=== PATIENT | female | born 1985 | race Caucasian/White ===

== ENCOUNTER 2021-10-07 14:28 | Emergency (ER) | payer BC, SELFPAY ==
[2021-10-07 14:38] VITALS: BP 147/99; PULSE 94; RESP 18; TEMP 36.6; O2SAT 97; BMI 32.5
--- NOTE | 2021-10-07 15:20 | CRLHL7_ITS ---
For Patients: As a result of the Century Cures Act, medical imaging exams and procedure reports are released immediately into your electronic medical record. You may view this report before your referring provider. If you have questions, please contact your health care provider. INDICATION: Cough TECHNIQUE: Single view chest. FINDINGS: The lungs are clear. The heart, mediastinum and pulmonary vessels are of normal size. There is no evidence of pleural disease. IMPRESSION: Negative chest. Dictated by Debra Durand MD @ 10/07/2021 3:41:55 PM (Electronically Signed)
--- NOTE | 2021-10-07 15:22 | ED_ITS ---
HPI - General Adult General Time Seen by Provider: 15:21 Date Seen: 10/07/21 Chief complaint: Cough Stated complaint: HEADACHES BODY ACHES NAUSIA W C19 EXPOSURE Time Seen by Provider: 10/07/21 14:57 History of Present Illness HPI narrative: 36-year-old female presents with 1 day history of bitemporal headache, generalized achiness, shortness of breath, cough, fatigue, malaise, nausea, vomiting. Patient reports that she was here for evaluation of vomiting about a week and a half ago. At that time she received antiemetic and fluids. She was feeling better. Her doctor told her that the vomiting was due to a side effect of her medications, possibly naltrexone so she stopped taking it. She was doing well over the subsequent several days until yesterday when she had illness involving the symptoms noted above. She was exposed to COVID at work on and Thursday of last week. She had coworkers who tested positive on Thursday for COVID. She has not previously had COVID but she is vaccinated for COVID. No other exposures. Related Data Home Medications Medication Instructions Recorded Confirmed bupropion HCl 300 mg 24 hr tablet, mg PO 10/07/21 extended release buspirone 10 mg tablet mg 10/07/21 cyclobenzaprine 10 mg tablet mg 10/07/21 liraglutide (weight loss) 3 mg/0.5 mg SUBCUT 10/07/21 mL (18 mg/3 mL) subcut pen injector (Saxenda) omeprazole 10 mg capsule,delayed 10 mg PO DAILY 10/07/21 10/07/21 release Allergies Allergy/AdvReac Type Severity Reaction Status Date / Time Penicillins AdvReac Severe Anaphylaxis Verified 10/07/21 14:41 metoclopramide [From Reglan] AdvReac Intermediate Verified 10/07/21 14:41 acetaminophen [From Vicodin] AdvReac Verified 10/07/21 14:41 hydrocodone [From Vicodin] AdvReac Verified 10/07/21 14:41 Review of Systems Narrative: patient reports no other significant symptoms of illness except as noted above. She also reports that she was feeling well from shortly after her emergency department visit 10 days ago to yesterday. [facility] Medical History Anxiety Chronic pain Depression Methamphetamine use disorder, moderate, in sustained remission PTSD (post-traumatic stress disorder) Surgical History History of Social History Smoking Status: Never smoker Do you use any of these nicotine containing products: None Second hand tobacco smoke exposure: No How often do you have a drink containing alcohol: never How often do you have six or more drinks on one occasion: Never AUDIT-C Alcohol total score: 0 Non-prescribed substance use: denies use service: No Exam Narrative: Exam Narrative: she is alert and appears in no distress. She gives her own history. Is examined. Palpation shows mild tenderness over lateral scalp bilaterally. No evidence of trauma. Pinnas external canals TMs bilaterally normal. Eyes are normal. Oropharynx is normal. No erythema or exudate. Neck is supple without mass or adenopathy. Respirations are clear to auscultation without wheezing, rales, rhonchi. Cardiovascular: S1, S2, regular rate and rhythm. No murmur gallop or rub. Abdomen: Bowel sounds active. Abdomen is soft with diffuse mild tenderness. No focal mass. Skin is without rash. Extremities with intact pulses and good capillary refill. No edema. Const: Vital Signs, click to edit/add: Vital Signs - 24 hr 10/07/21 14:38 10/07/21 16:48 Temperature 98 F Pulse Rate [Pulse Oximeter] 94 85 Respiratory Rate 18 16 Blood Pressure [Ri ght Upper Arm] 147/99 H Pulse Oximetry 97 97 Documenting provider has reviewed patient's vital signs: yes Course Vital Signs Vital signs: Initial Vital Signs Temperature 98 F 10/07/21 14:38 Temperature Source Temporal Artery Scan 10/07/21 14:38 Pulse Rate 94 10/07/21 14:38 Respiratory Rate 18 10/07/21 14:38 Blood Pressure 147/99 H 10/07/21 14:38 Blood Pressure Mean 115 10/07/21 14:38 Blood Pressure Position Sitting 10/07/21 14:38 Pulse Oximetry 97 10/07/21 14:38 Oxygen Delivery Method 10/07/21 14:38 Vital Signs Temperature 98 F 10/07/21 14:38 Pulse Rate 94 10/07/21 14:38 Respiratory Rate 18 10/07/21 14:38 Blood Pressure 147/99 H 10/07/21 14:38 Pulse Oximetry 97 10/07/21 14:38 Temperature 98 F 10/07/21 14:38 Pulse Rate 85 10/07/21 16:48 Respiratory Rate 16 10/07/21 16:48 Blood Pressure 147/99 H 10/07/21 14:38 Pulse Oximetry 97 10/07/21 16:48 Medical Decision Making Lab Data Labs: Lab Results 10/07/21 10/07/21 10/07/21 Range/Units 14:48 15:35 15:35 WBC 3.14 L (4.50-11.00) K/uL RBC 4.68 (4.00-5.20) m/uL Hgb 13.1 (12.0-16.0) gm/dL Hct 40.1 (33.0-51.0) % MCV 86 (80-100) fL MCH 28 (26-34) pg MCHC 33 (32-36) gm/dL RDW Coeff of [place] 12.8 (11.5-15.5) % Plt Count 258 (140-440) K/uL Neut % (Auto) 68.5 (42.0-72.0) % Lymph % (Auto) 12.4 L (20-44) % [place] % (Auto) 18.2 H (0.0-11.0) % Eos % (Auto) 0.3 (0.0-7.0) % Baso % (Auto) 0.3 (0.0-3.0) % Neut # (Auto) 2.20 (1.7-7.0) K/uL Lymph # (Auto) 0.40 L (0.90-2.90) K/uL [place] # (Auto) 0.60 (0.00-0.90) K/UL Eos # (Auto) 0.00 (0.00-0.50) K/uL Baso # (Auto) 0.00 (0.00-0.30) K/uL Abs Immat Gran (auto) 0.01 (0.00-0.30) K/uL Total Bilirubin 0.3 (0.1-1.5) mg/dL Direct Bilirubin 0.3 (0.0-0.5) mg/dL AST 28 (12-35) U/L ALT 27 (4-35) U/L Alkaline Phosphatase 166 H (40-150) U/L Troponin I (0.01-0.04) ng/mL C-Reactive Protein 1.5 H (0.5-1.0) mg/dL Total Protein 7.3 (6.0-8.3) g/dL Albumin 4.4 (3.3-5.0) g/dL Lipase 109 (23-300) U/L SARS-CoV-2 (PCR) POSITIVE (Negative) Influenza Type A (PCR) NEGATIVE (Negative) Influenza Type B (PCR) NEGATIVE (Negative) 10/07/21 Range/Units 15:35 WBC (4.50-11.00) K/uL RBC (4.00-5.20) m/uL Hgb (12.0-16.0) gm/dL Hct (33.0-51.0) % MCV (80-100) fL MCH (26-34) pg MCHC (32-36) gm/dL RDW Coeff of [place] (11.5-15.5) % Plt Count (140-440) K/uL Neut % (Auto) (42.0-72.0) % Lymph % (Auto) (20-44) % [place] % (Auto) (0.0-11.0) % Eos % (Auto) (0.0-7.0) % Baso % (Auto) (0.0-3.0) % Neut # (Auto) (1.7-7.0) K/uL Lymph # (Auto) (0.90-2.90) K/uL [place] # (Auto) (0.00-0.90) K/UL Eos # (Auto) (0.00-0.50) K/uL Baso # (Auto) (0.00-0.30) K/uL Abs Immat Gran (auto) (0.00-0.30) K/uL Total Bilirubin (0.1-1.5) mg/dL Direct Bilirubin (0.0-0.5) mg/dL AST (12-35) U/L ALT (4-35) U/L Alkaline Phosphatase (40-150) U/L Troponin I < 0.01 L (0.01-0.04) ng/mL C-Reactive Protein (0.5-1.0) mg/dL Total Protein (6.0-8.3) g/dL Albumin (3.3-5.0) g/dL Lipase (23-300) U/L SARS-CoV-2 (PCR) (Negative) Influenza Type A (PCR) (Negative) Influenza Type B (PCR) (Negative) Discharge Plan Discharge Clinical Impression: COVID-19 Patient Disposition: Home, Self-Care Activity Level: Activity as Tolerated and Other Activity Detail: quarantine yourself to protect others from getting COVID from you. Follow guidelines from [facility] and [facility]. Discharge Diet: Regular Prescriptions: No Action buspirone 10 mg tablet 0RF Label Comments: TAKE 2 TABLETS BY MOUTH TWICE DAILY bupropion HCl 300 mg tablet extended release 24 hr PO 0RF Label Comments: TAKE 1 TABLET BY MOUTH EVERY DAY Saxenda 3 mg/0.5 mL (18 mg/3 mL) pen injector SUBCUT 0RF Label Comments: ADMINISTER 3 MG UNDER THE SKIN DAILY omeprazole 10 mg capsule,delayed release(DR/EC) 10 mg PO DAILY 0RF cyclobenzaprine 10 mg tablet 0RF Follow Up/Referrals: Provider,Not a Local [Primary Care Provider] - Stand Alone Forms: [employer] Info Instructions
[2021-10-07 15:30] LABS: PCR FLU A NEGATIVE (Negative); PCR FLU B NEGATIVE (Negative); SARS PCR* POSITIVE (Negative)
[2021-10-07] MEDS: 0.9 % SODIUM CHLORIDE 1000 ml 1,000 ML IV (15:37)
[2021-10-07] MEDS: KETOROLAC 15 MG/ML inj IVP (15:38)
[2021-10-07] MEDS: ONDANSETRON 2 MG/ML inj 4 MG IVP (15:38)
[2021-10-07 15:48] LABS: Basophils Percent Auto 0.3 % (0.0-3.0); Eosinophils Percent Auto 0.3 % (0.0-7.0); Hematocrit 40.1 % (33.0-51.0); Hemoglobin* 13.1 gm/dL (12.0-16.0); Immature Granulocytes Abs Auto 0.01 K/uL (0.00-0.30); Lymphocytes Percent Auto 12.4 % (20-44); Mean Corpuscular HGB Conc 33 gm/dL (32-36); Mean Corpuscular Hemoglobin 28 pg (26-34); Mean Corpuscular Volume 86 fL (80-100); Monocytes Percent Auto 18.2 % (0.0-11.0); Neutrophils Percent Auto 68.5 % (42.0-72.0); Platelet Count* 258 K/uL (140-440); RDW Coefficient of Variation % 12.8 % (11.5-15.5); Red Blood Count 4.68 m/uL (4.00-5.20); White Blood Count* 3.14 K/uL (4.50-11.00)
[2021-10-07 15:58] LABS: Slide Review Reflex No
[2021-10-07 16:06] LABS: Albumin* 4.4 g/dL (3.3-5.0)
[2021-10-07 16:08] LABS: Bilirubin Direct* 0.3 mg/dL (0.0-0.5); Bilirubin Total* 0.3 mg/dL (0.1-1.5)
[2021-10-07 16:09] LABS: Alanine Aminotransferase* 27 U/L (4-35); Alkaline Phosphatase* 166 U/L (40-150); Aspartate Amino Transferase* 28 U/L (12-35); Lipase* 109 U/L (23-300); Total Protein* 7.3 g/dL (6.0-8.3)
[2021-10-07 16:12] LABS: C Reactive Protein* 1.5 mg/dL (0.5-1.0)
[2021-10-07 16:21] LABS: Troponin I* < 0.01 ng/mL (0.01-0.04)
[2021-10-07 16:48] VITALS: PULSE 85; RESP 16; O2SAT 97
[2021-10-07] MEDS: LORazepam 2 MG/ML inj 1 MG IVP (17:10)
[2021-10-07 18:00] VITALS: PULSE 81; RESP 16; O2SAT 97
== END 2021-10-07 18:27 | disposition home or self-care (01) ==
PROVIDERS: Emergency Provider Family Medicine
DX: U07.1 COVID-19 (principal)
CPT/HCPCS: 36415; 71045; 80076; 81003; 83690; 84484; 85025; 86140; 87502; 87635; 96374; 96375; 99283; 99284; J1885; J2060; J2405; J7030

== ENCOUNTER 2023-04-30 09:48 | Outpatient (CLI) | payer BC, SELFPAY ==
--- OUTSIDE RECORDS SUMMARY | 2023-05-01 16:19 | XMS_ITS | Clinical Summary ---
Author Name Unknown Organization [facility] Address [address] [place] [id number] Care Team Providers Care Non Destructive Testing Specialist Name Role Phone No Ref-Primary, Physician Unavailable [phone] More Conde MD Primary Care Provider [phone] Allergies Active Allergy Reactions Criticality Noted Date [...] Smoking Tobacco: Every Day Smokeless Tobacco: Never Adolescent Education Answer Date Record ed Getting School Help Needed Not on file 05/01 Sex and Gender Information Value Date Recorded [...] 10/30/2016 9:11 PM CDT Plan of Treatment Health Maintenance Due Date Last Done Comments ADVANCE CARE PLANNING 1985 ANNUAL REVIEW OF HM ORDERS 1986 HEPATITIS B IMMUNIZATION (1 of 3 - 3-dose series) 1986 YEARLY PREVENTIVE VISIT 1986 COVID-19 Vaccine (#1) 1986 HIV SCREENING 2001 HEPATITIS C SCREENING 2004 PAP 2007 DTAP/TDAP/TD IMMUNIZATION (4 - Tdap) 08/13/2010 08/13/2000, 10/11/1998, 10/09/1998, Additional history exists Pneumococcal Vaccine: Pediatrics (0 to 5 Years) and At-Risk Patients (6 to 64 Years) (2 of 2 - PCV) 10/18/2013 10/18/2012, 08/13/2000 INFLUENZA VACCINE (#1) 2022 2, 01/08/2011, 02/21/2010, Additional history exists PHQ-2 (once per calendar year) 2023 IPV IMMUNIZATION Completed 10/09/1998, 11/1997, 12/13/1997 HPV IMMUNIZATION Aged Out No longer e ligible based on patient's age to complete this topic MENINGITIS IMMUNIZATION Aged Out No l onger eligible based on patient's age to complete this topic RSV MONOCLONAL ANTIBODY Aged Out No l onger eligible based on patient's age to complete this topic Care Teams Non Destructive Testing Specialist Relationship Specialty Start Date End Date More Conde MD PCP - General Family Practice 09/19/18 No Ref-Primary, Physician 08/26/18
--- OUTSIDE RECORDS SUMMARY | 2023-05-01 16:19 | XMS_ITS | Referral Summary ---
Author Name Unknown Organization [facility] Address [address] [place] [address] Care Team Providers Care Claim Auditor Name Role Phone No Ref-Primary, Physician Unavailable [phone] More Conde MD Primary Care Provider [phone] Allergies Active Allergy Reactions Criticality Noted Date [...] of Treatment Not on file Care Teams Claim Auditor Relationship Specialty Start Date End Date More Conde MD PCP - General Family Practice 09/19/18 No Ref-Primary, Physician 08/26/18
--- OUTSIDE RECORDS SUMMARY | 2023-05-01 16:19 | XMS_ITS | Encounter Summary ---
Author Name Unknown Organization [facility] Address [address] [place] [address] Care Team Providers Care Radiation Control Specialist Name Role Phone No Ref-Primary, Physician Unavailable [phone] No Ref-Primary, Physician Primary Care Provider More Conde MD Primary Care Provider Reason for Visit * Reason Onset Date Comments [facility] 08/26/2018 Encounter Details Date Type Department Care Team ([facility] st Contact Info) Description 08/26/2018 Telephone [facility] Intake [address] [place] [address] Generic, Behavioral Intake, [facility] [...] 09/07/2018 3:36 PM CDT Received call from cosmetic consultant Rhonda, and she reports pt will be attending tx elsewhere and will not bepursing admission to +. * Telephone Encounter - Мария Bush LADC - 09/06/2018 8:07 AM CDT I called Liudmila at [phone] (unable to leave message) and the other phone at [phone] (voicemail, but unclear if it is patient). I did not leave messages. I called cosmetic consultant Rhonda Eli at [phone]. * Telephone Encounter - Мария Bush LADC - 09/02/2018 4:24 PM CDT I received and reviewed Comprehensive Assessment from [facility], where she is currently in residential treatment. I called patient at [phone], but could not leave a message. I called cosmetic consultant Rhonda Shawly at [phone] and left voicemail asking if patient is [...] PTSD diagnosis. It appears she has a [facility] medication management appointment set up. She has CPS involvement. She denied suicidal ideation. * Telephone Encounter - Joey Cervantes - 09/02/2018 8:11 AM CDT Client called directly Is seeking L+ Will fax over clinical * Telephone Encounter - Ruddy Lucia - 08/26/2018 9:42 AM CDT 08/26/18 Received CD Assessment w/o DUANE from Rhonda Benitez ([facility] [phone]), left aVM for Rhonda that the DUANE is needed prior to assessment being reviewed. Filed for DUANE. JT documented in this encounter Plan of Treatment Not on file documented as of this encounter Visit Diagnoses Not on filedocumented in this encounter Care Teams Radiation Control Specialist Relationship Specialty Start Date End Date No Ref-Primary, Physician PCP - General 09/16/18 09/18/18 More Conde MD PCP - General Family Practice 09/19/18 No Ref-Primary, Physician 08/26/18 documented as of this encounter
--- OUTSIDE RECORDS SUMMARY | 2023-05-01 16:19 | XMS_ITS | Clinical Summary ---
Author Name Unknown Organization [facility] Address [address] [place] [address] Care Team Providers Care Higher Education Administrator Name Role Phone Elsewhere, Pcp Primary Care Provider Unavailabl e Source Comments Patient records contain information from all sites at [facility]. For routine questions regarding patient records, call [phone] during business hours, M-F 8:00 AM - 5:00 PM Central Time. Record requests for emergency care only can be directed to [phone] at any time.[facility] [...] Department Care Team Description 03/12/2023 2:15 PM FRANCHISE MANAGER Virtual Visit Department of Obstetrics and Gynecology in [address] [address] Librado Blanton M.D. Bleeding Dysfunctional Uterine (Primary Dx) Discharge Disposition: Home or Self Care 02/19/2023 1:30 PM FRANCHISE MANAGER Ancillary Procedure Department of Obstetrics and Gynecology in [address] [address] Librado Blanton M.D. Bleeding Dysfunctional Uterine 02/19/2023 1:15 PM FRANCHISE MANAGER Comprehensive Visit Department of Obstetrics and Gynecology in [address] [address] Librado Blanton M.D. Bleeding Dysfunctional Uterine (Primary Dx) Discharge Disposition: Home or Self Care 02/19/2023 Clinical Communication Department of Obstetrics and Gynecology in [address] [address] Librado Blanton M.D. from Last 3 Months [...] any clubs o r organizations such as protestant groups, unions, fraternal or athletic groups, or [...] Answer Date Recorded PHQ-2 Score 4 04/11/2019 [facility] - Occupational Stress [...] place to sleep or slept in a custodial (including now)? No 04/04/2022 Depression Answer Date [...] Comments Blood Pressure 118/84 02/19/2023 1:00 PM FRANCHISE MANAGER Pulse 72 03/07/2019 7:42 AM FRANCHISE MANAGER Temperature 36.4 ??C (97.5 ??F) 02/02/2019 2:12 PM CD T Respiratory Rate 18 01/19/2019 7:49 PM CDT Oxygen Saturation 99% 01/19/2019 11:00 PM CDT Inhaled Oxygen Concentration - - Weight 89.1 kg (196 lb 6.9 oz) 02/19/2023 1:00 P M FRANCHISE MANAGER Height 176 cm (5' 9.29) 02/19/2023 1:00 PM FRANCHISE MANAGER Body Mass Index 28.76 02/19/2023 1:00 PM FRANCHISE MANAGER Plan of Treatment Health Maintenance Due Date [...] SURGICAL PATHOLOGY Routine 02/19/2023 1: 55 PM FRANCHISE MANAGER Bleeding Dysfunctional Uterine US PELVIS TRANSVAGINAL RAD - Routine (most inpatients and all outpatients) 02/19/2023 1:41 PM FRANCHISE MANAGER Bleeding Dysfunctional Uterine FL BX ENDOMETRIAL WO CERVIX DIL Routine 02/19/2023 1:15 PM FRANCHISE MANAGER Bleeding Dysfunctional Uterine from Last 3 Months Results * Surgical Pathology (02/19/2023 1:55 PM FRANCHISE MANAGER) 02/23/2023 9:52 AM FRANCHISE MANAGER MKTO Report electronically signed by Aysha Mckeon MD 02/23/2023 9:52 AM FRANCHISE MANAGER MKTO Specimen Received A. Endometrial biopsy 02/23/2023 9:52 AM FRANCHISE MANAGER MKTO Clinical History Dysfunctional uterine bleeding 02/23/2023 9:52 AM FRANCHISE MANAGER MKTO Gross Description Submitted as endometrium and consists of hemorrhagic domingo tissues filtering to a loose 0.6 cm. ESB, one block. mpg/nm 02/23/2023 9:52 AM FRANCHISE MANAGER MKTO Interpretation FINAL DIAGNOSIS Endometrium, biopsy: Inactive endometrium with decidualized stroma (exogenous progestational effect) with glandular and stromal breakdown. 02/23/2023 9:52 AM FRANCHISE MANAGER MKTO Tissue 02/19/2023 1:55 PM FRANCHISE MANAGER 02/20/2023 8:43 AM FRANCHISE MANAGER Librado Blanton M.D. LAB SURG PATH [facility] [address] [place] [address], [facility] MKTO [address] [facility] [address] [place] [address] * US Pelvis Transvaginal (02/19/2023 1:41 PM FRANCHISE MANAGER) Anatomical Region Laterality Modality Pelvis, Ultrasound RST LOS, Ultrasound ARZ LOS, Ultrasound FLA LOS N/A Ultrasound 02/19/2023 1:48 PM FRANCHISE MANAGER Impressions 02/19/2023 1:49 PM FRANCHISE MANAGER Normal pelvic ultrasound Narrative 02/19/2023 1:49 PM FRANCHISE MANAGER EXAM: US PELVIS TRANSVAGINAL COMPARISON: TECHNIQUE: Transvaginal. [...] Librado Blanton M.D. IMG US PROCEDURES * FL BX ENDOMETRIAL WO CERVIX DIL (02/19/2023 1:15 PM FRANCHISE MANAGER) Narrative MMODAL - 02/19/2023 1:15 PM FRANCHISE MANAGER Librado Blanton M.D. ? 02/19/2023 ??1:52 PM [...] NA from Last 3 Months Care Teams Higher Education Administrator Relationship Specialty Start Date End Date Elsewhere, Pcp PCP - General Application Infrastructure Engineer 03/18/19
--- OUTSIDE RECORDS SUMMARY | 2023-05-01 16:20 | XMS_ITS | Referral Summary ---
Author Name Unknown Organization [facility] Address [address] [place] [address] Care Team Providers Care Master [place] Name Role Phone Elsewhere, Pcp Primary Care Provider Unavailabl e Source Comments Patient records contain information from all sites at [facility]. For routine questions regarding patient records, call [phone] during business hours, M-F 8:00 AM - 5:00 PM Central Time. Record requests for emergency care only can be directed to [phone] at any time.[facility] Encounters Date Type Department Care Team Description 03/12/2023 2:15 PM DIVERSITY INTERN Virtual Visit Department of Obstetrics and Gynecology in [address] [address] Librado Blanton M.D. Bleeding Dysfunctional Uterine (Primary Dx) Discharge Disposition: Home or Self Care 02/19/2023 Clinical Communication Department of Obstetrics and Gynecology in [address] [phone] Librado Blanton M.D. 02/19/2023 1:30 PM DIVERSITY INTERN Ancillary Procedure Department of Obstetrics and Gynecology in [address] [address] Librado Blanton M.D. Bleeding Dysfunctional Uterine 02/19/2023 1:15 PM DIVERSITY INTERN Comprehensive Visit Department of Obstetrics and Gynecology in [address] [phone] Librado Blanton M.D. Bleeding Dysfunctional Uterine (Primary [...] week 04/04/2022 How often do you attend [facility] or sabianist services? More than 4 times per year [...] Answer Date Recorded PHQ-2 Score 4 04/11/2019 [employer] - Occupational Stress Questionnaire Answer Date Recorded [...] Comments Blood Pressure 118/84 02/19/2023 1:00 PM DIVERSITY INTERN Pulse 72 03/07/2019 7:42 AM DIVERSITY INTERN Temperature 36.4 ??C (97.5 ??F) 02/02/2019 2:12 PM CD T Respiratory Rate 18 01/19/2019 7:49 PM CDT Oxygen Saturation 99% 01/19/2019 11:00 PM CDT Inhaled Oxygen Concentration - - Weight 89.1 kg (196 lb 6.9 oz) 02/19/2023 1:00 P M DIVERSITY INTERN Height 176 cm (5' 9.29) 02/19/2023 1:00 PM DIVERSITY INTERN Body Mass Index 28.76 02/19/2023 1:00 PM DIVERSITY INTERN Plan of Treatment Not on file Procedures Procedure Name Priority Date/Time Associated Diagnosis Comments SURGICAL PATHOLOGY Routine 02/19/2023 1: 55 PM DIVERSITY INTERN Bleeding Dysfunctional Uterine US PELVIS TRANSVAGINAL RAD - Routine (most inpatients and all outpatients) 02/19/2023 1:41 PM DIVERSITY INTERN Bleeding Dysfunctional Uterine NM BX ENDOMETRIAL WO CERVIX DIL Routine 02/19/2023 1:15 PM DIVERSITY INTERN Bleeding Dysfunctional Uterine from Last 3 Months Results * Surgical Pathology (02/19/2023 1:55 PM DIVERSITY INTERN) 02/23/2023 9:52 AM DIVERSITY INTERN MKTO Report electronically signed by Aysha Mckeon MD 02/23/2023 9:52 AM DIVERSITY INTERN MKTO Specimen Received A. Endometrial biopsy 02/23/2023 9:52 AM DIVERSITY INTERN MKTO Clinical History Dysfunctional uterine bleeding 02/23/2023 9:52 AM DIVERSITY INTERN MKTO Gross Description Submitted as endometrium and consists of hemorrhagic domingo tissues filtering to a loose 0.6 cm. ESB, one block. mpg/nm 02/23/2023 9:52 AM DIVERSITY INTERN MKTO Interpretation FINAL DIAGNOSIS Endometrium, biopsy: Inactive endometrium with decidualized stroma (exogenous progestational effect) with glandular and stromal breakdown. 02/23/2023 9:52 AM DIVERSITY INTERN MKTO Tissue 02/19/2023 1:55 PM DIVERSITY INTERN 02/20/2023 8:43 AM DIVERSITY INTERN Librado Blanton M.D. LAB SURG PATH [facility] [address] [place] [address], [facility] MKTO [address] [place] [address] * US Pelvis Transvaginal (02/19/2023 1:41 PM DIVERSITY INTERN) Anatomical Region Laterality Modality Pelvis, Ultrasound RST LOS, Ultrasound ARZ LOS, Ultrasound FLA LOS N/A Ultrasound 02/19/2023 1:48 PM DIVERSITY INTERN Impressions 02/19/2023 1:49 PM DIVERSITY INTERN Normal pelvic ultrasound Narrative 02/19/2023 1:49 PM DIVERSITY INTERN EXAM: US PELVIS TRANSVAGINAL COMPARISON: TECHNIQUE: Transvaginal. [...] Librado Blanton M.D. IMG US PROCEDURES * NM BX ENDOMETRIAL WO CERVIX DIL (02/19/2023 1:15 PM DIVERSITY INTERN) Narrative MMODAL - 02/19/2023 1:15 PM DIVERSITY INTERN Librado Blanton M.D. ? 02/19/2023 ??1:52 PM [...] Last 3 Months Administered Medications Care Teams Master [place] Relationship Specialty Start Date End Date Elsewhere, Pcp PCP - General Administration Specialist 03/18/19
--- OUTSIDE RECORDS SUMMARY | 2023-05-01 16:20 | XMS_ITS | Encounter Summary ---
Author Name Unknown Organization [facility] Address [address], [place] [address] Care Team Providers Care Transportation Maintenance Operator Name Role Phone More Conde Primary Care Provider [phone] Encounter Details Date Type Department Care Team [...] on filedocumented in this encounter Care Teams Transportation Maintenance Operator Relationship Specialty Start Date End Date More Conde MBBS [address] [place] [address] PCP - General Family Practice 07/19/19 documented as of this encounter
--- OUTSIDE RECORDS SUMMARY | 2023-05-01 16:20 | XMS_ITS | Encounter Summary ---
Author Name Unknown Organization [facility] Address [address], [place] [address] Care Team Providers Care Tongue Presser Name Role Phone More Conde Primary Care Provider [phone] Encounter Details Date Type Department Care Team [...] on filedocumented in this encounter Care Teams Tongue Presser Relationship Specialty Start Date End Date More Conde MBBS [address] [place] [address] PCP - General Family Practice 07/19/19 documented as of this encounter
--- OUTSIDE RECORDS SUMMARY | 2023-05-01 16:20 | XMS_ITS | Encounter Summary ---
Author Name Unknown Organization [facility] Address [address] [place] [address] Care Team Providers Care Monotypist Name Role Phone Elsewhere, Pcp Primary Care Provider Unavailabl e Reason for Visit * Appointment Request (Routine) - Closed Specialty Diagnoses / Procedures Referred By Dionte t Referred To Contact Obstetrics and Gynecology Referral ID Status Reason Start Date Expiration Date Visits Re quested Visits Authorized [id number] Closed 03/06/2023 03/05/2024 1 1 Encounter Details Date Type Department Care Team (Latest Contact Info) Description 03/12/2023 2:15 PM ECONOMIC RESEARCH ANALYST Virtual Visit Department of Obstetrics and Gynecology in [address] [phone] Librado Blanton M.D. [address] [place] [phone] Bleeding Dysfunctional Uterine (Primary Dx) Discharge Disposition: [...] often do you attend chur ch or holiness services? More than 4 times per year [...] Answer Date Recorded PHQ-2 Score 4 04/11/2019 [facility] Occupat ional Health - Occupational [...] progestational effect) with glandular and stromal breakdown. OMIC RESEARCH ANALYST documented in this encounter Plan of Treatment Not on file documented as of this encounter Visit Diagnoses Diagnosis Bleeding Dysfunctional Uterine- Primary documented in this encounter Additional Health Concerns Assessment Noted Time PHQ-9 Depression Total Score: 11 020 4:00 PM ECONOMIC RESEARCH ANALYST documented as of this encounter Care Teams Monotypist Relationship Specialty Start Date End Date Elsewhere, Pcp PCP - General Outside Machinist Supervisor 03/18/19 documented as of this encounter
--- OUTSIDE RECORDS SUMMARY | 2023-05-01 16:20 | XMS_ITS | Clinical Summary ---
Author Name Unknown Organization [facility] Address [place], [place] [address] Care Team Providers Care Key Holder Name Role Phone Espinoza Montaenz MD Primary Care Provider Flaca Miles Unavailable [...] 30 Tablet 0 3 Active rizatriptan (MAXALT LOCKSTITCH COAT JOINER) 10 mg disintegrating tabletIndications:S tatus migrainosus Place [...] DAILY 15 mL 2 3 Active Insulin [place], Disposable, (BD Polly 2nd Gen Pen Needle) [...] migh t be different from the original. Office Sweeper Orders placed for 2021 Problem Noted Date [...] screening 04/13/19 08 Overview: 2003 LSIL 07/2003 [place]: CONCHIS I, ECC Benign 2005 LSIL 07/2005 [place]: No Bx 11/2005 [place]: CONCHIS 1, ECC Benign 04/2007 LSIL/HPV+ 05/2007 [place]: No Bx 12/2007 NIL 12/2008 NIL 02/2010 [...] Encounters Date Type Department Care Team Description 04/30/2023 Orders Only [facility] Scanner 1 scan: (1-Ord) [facility], ABDOMEN LIMITED, 04/30/2023 04/30/2023 Orders Only [facility] Scanner 1 scan: (1-Ord) [facility] ABDOMEN PELVIS, 04/30/2023 04/14/2023 4:00 PM MACHINE FORMER Telemedicine [facility] [address] [address] [place] [address] Olivia Mccarty MBBS Telehealth (Virtual visit-no vitals taken. /); Weight (MWL-wegovy ) 04/14/2023 Travel 04/07/2023 Orders Only [facility] Scanner 1 scan: (1-Ord) INCOMING RECORDS-, [facility], 04/07/2023 04/03/2023 11:00 AM MACHINE FORMER Telemedicine [facility] [address] [place] [address] Telehealth 04/03/2023 Travel 03/30/2023 [facility]ill [facility] [address] [place] [address] Olivia Mccarty MBBS Refill Request (Wegovy) 03/20/2023 Patient Outreach [place] [address] [place] [address] Rhonda Garcia, BALANCE BRIDGE INSPECTOR Follow up (Nausea/vomiting/intr actable headache/ED Risk 71%/03/20/2023); Primary RN Care Management (03/20/2023) 03/19/2023 10:36 PM MACHINE FORMER - 03/20/2023 1:09 AM MACHINE FORMER Emergency [facility] [address] [facility] [place] [address] Sunil Fox MD Nausea and vomiting in adult (Primary Dx); Acute nonintractable headache, unspecified headache type Discharge Disposition: Home Self Care 03/19/2023 Travel 03/18/2023 Refill [facility] [address] [facility] [address] [place] [address] Olivia Mccarty MBBS Refill Request (Bd Polly 2nd Gen Pen Needle) 02/27/2023 Telephone [facility] [address] [facility] [address] [place] [address] Olivia Mccarty MBBS Prior Authorization (semaglutide, weight loss, (Wegovy) 1.7 mg/0.75 mL pen Approved 02/04/23-02/27/24) 02/24/2023 3:30 PM MACHINE FORMER Telemedicine [facility] [address] [facility] [address] [place] [address] Olivia Mccarty MBBS Telehealth (Virtual visit-no vitals taken. /); Weight (MWL-saxenda ) 02/09/2023 Medical Messaging [address] [place] [address] Espinoza Montanez MD Referral request from Last [...] Sex Assigned at Female 04/12/2020 5:37 PM MACHINE FORMER Gender Identity Female 04/12/2020 5:37 PM MACHINE FORMER Sexual Orientation Bisexual 04/12/2020 5: 37 PM MACHINE FORMER Obstetrics History Para Term AB IAB SAB Ectopic Multiple Livin g Live Births 2 2 2 0 0 0 0 0 0 2 2 Date Outcome GA Total Labor Labor/2nd/3rd Weight Sex Delivery Anes PTL Alondra A1 A5 Name Cl in 10/10 Term 40w 0d 23h 00m/ 3.06 kg (6 lb 12 oz) M Vag Epidu [facility]al [facility] Comments: wit h no GDM or labor; uncomplicated delivery of healthy boy 10/28 Term 4.45 kg (9 lb 13 oz) F Vag Epidu ral N Geovanna ng 8 9 Kourt annabelle Schoe l Delivery Location:[facility] Comments:macrosomic in keiry Last Filed Vital Signs Vital Sign Reading Time Taken Comments Blood Pressure 131/92 03/19/2023 10:35 PM MACHINE FORMER Pulse 76 03/19/2023 10:35 PM MACHINE FORMER Temperature 36.7 ??C (98.1 ??F) 03/19/2023 10:[address] Respiratory Rate 20 03/19/2023 10:35 PM MACHINE FORMER Oxygen Saturation 97% 03/19/2023 10:35 PM MACHINE FORMER Inhaled Oxygen Concentration - - Weight 89.4 kg (197 lb) 04/14/2023 3:00 PM MACHINE FORMER Height 174 cm (5' 8.5) 04/14/2023 3:00 PM MACHINE FORMER Body Mass Index 29.51 04/14/2023 3:00 PM MACHINE FORMER Plan of Treatment Upcoming Encounters Date Type Department Care Team (Late st Contact Info) Description 06/09/2023 11:00 AM MACHINE FORMER Telemedicine [facility] [address] [facility] [address] [place] [phone] Carol Painting, RD [address] [facility] [address] [place] [address] 06/23/2023 3:00 PM CDT Office Visit [facility] [place] [facility] [address] [place] [address] Ruddy Garcia MD [address] [place] [address] 07/06/2023 3:30 PM CDT Telemedicine [facility] [address] [facility] [address] [place] [phone] Olivia Mccarty MBBS [address] [facility] [address] [place] [address] Health Maintenance Due Date Last Done Comments [...] Additional history exists Tetanus booster 01/21/2031 01/21/2021, 06/0 12/2010, 10/09/1998 Tdap Completed 09/12/2010 Pneumococcal series for age 6-64 Aged Out 10/18/2012, 08/13/2000 No longer eligibl e based on patient's age to complete this topic HIV for age 15-65 Completed 08/22/2020, , 03/24/2007 Hepatitis C screening for age 18-79 Completed 08/22/2020 Procedures Procedure Name Priority Date/Time Associated Diagnosis Comments SCAN-ULTRASOUND REPORT 12:00 AM MACHINE FORMER SCAN-CT INTERPRETATION 12:00 AM MACHINE FORMER SCAN CORRESP-IMAGING 04/07/2023 12:00 AM MACHINE FORMER LIPASE STAT 03/19/2023 11:15 PM MACHINE FORMER HEPATIC FUNCTION PANEL STAT 11:15 PM MACHINE FORMER BASIC METABOLIC PANEL STAT 03/19/2023 11:15 PM MACHINE FORMER CBC W PLT NO DIFF STAT 03/19/2023 11: 15 PM MACHINE FORMER from Last 3 Months Results * SCAN-ULTRASOUND REPORT (04/30/2023 12:00 AM MACHINE FORMER) Anatomical Region Laterality Modality Other Scanner OTHER * SCAN-CT INTERPRETATION (04/30/2023 12:00 AM MACHINE FORMER) Anatomical Region Laterality Modality Other Scanner OTHER * SCAN CORRESP-IMAGING (04/07/2023 12:00 AM MACHINE FORMER) Anatomical Region Laterality Modality Other Scanner OTHER * CBC W PLT NO DIFF (03/19/2023 11:15 PM MACHINE FORMER) WHITE BLOOD COUNT 6.6 4.5 - 11.0 thou/cu mm 03/19/2023 11:32 PM MACHINE FORMER [facility] RED BLOOD COUNT 4.80 4.00 - 5.20 mil/cu mm 03/19/2023 11:32 PM MACHINE FORMER [facility] HEMOGLOBIN 13.9 12.0 - 16.0 g/dL 03/19/2023 11:32 PM MACHINE FORMER [facility] HEMATOCRIT 42.6 33.0 - 51.0 % 03/19/2023 11:32 PM MACHINE FORMER [facility] MCV 89 80 - 100 fL 03/19/2023 11:32 PM MACHINE FORMER [facility] MCH 29.0 26.0 - 34.0 pg 03/19/2023 11:32 PM MACHINE FORMER [facility] MCHC 32.6 32.0 - 36.0 g/dL 03/19/2023 11:32 PM MACHINE FORMER [facility] RDW 14.2 11.5 - 15.5 % 03/19/2023 11:32 PM MACHINE FORMER [facility] PLATELET COUNT 358 140 - 440 thou/cu mm 03/19/2023 11:32 PM MACHINE FORMER [facility] MPV 10.7 6.5 - 11.0 fL 03/19/2023 11:32 PM MACHINE FORMER [facility] Blood BLOOD SPECIMEN / Unknown Venipuncture / Unknown 03/19/2023 11:15 PM MACHINE FORMER 03/19/2023 11:19 PM MACHINE FORMER Sunil Fox MD HEMATOLOGY [facility] [address] [place] [address] * LIPASE (03/19/2023 11:15 PM MACHINE FORMER) LIPASE 32.3 13.0 - 60.0 IU/L 03/19/2023 11:39 PM MACHINE FORMER [facility] Blood BLOOD SPECIMEN / Unknown Venipuncture / Unknown 03/19/2023 11:15 PM MACHINE FORMER 03/19/2023 11:19 PM MACHINE FORMER Sunil Fox MD CHEMISTRY Performing Organization Address City/[facility]/ZIP Co de Phone Number [facility] [address] [place] [address] * (ABNORMAL) HEPATIC FUNCTION PANEL (03/19/2023 11:15 PM MACHINE FORMER) ALBUMIN 4.8 4.0 - 4.9 g/dL 03/19/2023 11:39 PM MACHINE FORMER [facility] PROTEIN,TOTAL 7.4 6.0 - 8.0 g/dL 03/19/2023 11:39 PM MACHINE FORMER [facility] BILIRUBIN,TOTAL 0.6 0.0 - 1.2 mg/dL 03/19/2023 11:39 PM MACHINE FORMER [facility] BILIRUBIN,DIRECT <0.2 0.0 - 0.3 mg/dL 03/19/2023 11:39 PM MACHINE FORMER [facility] BILIRUBIN,INDIRE CT 03/19/2023 11:39 PM MACHINE FORMER [facility] Comment:Unable to calculate, Direct Bili <0.2 ALK PHOSPHATASE 191(H) 35 - 104 IU/L 03/19/2023 11:39 PM MACHINE FORMER [facility] ALT (SGPT) 87(H) 10 - 35 IU/L 03/19/2023 11:39 PM MACHINE FORMER [facility] AST (SGOT) 29 10 - 35 IU/L 03/19/2023 11:39 PM MACHINE FORMER [facility] Blood BLOOD SPECIMEN / Unknown Venipuncture / Unknown 03/19/2023 11:15 PM MACHINE FORMER 03/19/2023 11:19 PM MACHINE FORMER Sunil Fox MD CHEMISTRY [facility] [address] [place] [address] * (ABNORMAL) BASIC METABOLIC PANEL (03/19/2023 11:15 PM MACHINE FORMER) SODIUM 141 136 - 145 mmol/L 03/19/2023 11:39 PM MACHINE FORMER [facility] POTASSIUM 3.6 3.5 - 5.1 mmol/L 03/19/2023 11:39 PM MACHINE FORMER [facility] CHLORIDE 105 98 - 107 mmol/L 03/19/2023 11:39 PM MACHINE FORMER [facility] CO2,TOTAL 21(L) 22 - 29 mmol/L 03/19/2023 11:39 PM MACHINE FORMER [facility] ANION GAP 15 5 - 18 03/19/2023 11:39 PM MACHINE FORMER [facility] GLUCOSE 80 70 - 99 mg/dL 03/19/2023 11:39 PM MACHINE FORMER [facility] CALCIUM 10.0 8.6 - 10.0 mg/dL 03/19/2023 11:39 PM [facility] BUN 14 6 - 20 mg/dL 03/19/2023 11:39 PM MACHINE FORMER [facility] CREATININE 0.86 0.50 - 0.90 mg/dL 03/19/2023 11:39 PM MACHINE FORMER [facility] BUN/CREAT RATIO 16 10 - 20 11:39 PM [facility] eGFR 90(L) >90 mL/min/1.7 3m2 03/19/2023 11:39 PM [facility] Comment:As of 2021, eG FR is calculated by the CKD-EPI creatinine equation without race adjustment. ??eGFR can be influenced by muscle mass, exercise, and diet. ??The reported eGFR is an estimation only and is only applicable if the renal function is stable. Blood BLOOD SPECIMEN / Unknown Venipuncture / Unknown 03/19/2023 11:15 PM MACHINE FORMER 03/19/2023 11:19 PM MACHINE FORMER Sunil Fox MD CHEMISTRY [facility] [address] [place] [address] from Last 3 Months Advance Directives Latest [...] 4:48 AM 10/31/2007 3:48 PM Care Teams Key Holder Relationship Specialty Start Date End Date Espinoza Montanez MD [address] [facility] [place] [address] PCP - General Family Practice 01/17/20 Flaca Miles PA [address] [facility] [place] [address] Consulting Physician Physician Lab Associate 01/17/20 Tegan Freedman Psychiatry Psychiatry 01/17/20
--- OUTSIDE RECORDS SUMMARY | 2023-05-01 16:20 | XMS_ITS | Encounter Summary ---
Author Name Unknown Organization [facility] Address [address] [place] [address] Care Team Providers Care Focused Factory Manager Name Role Phone Elsewhere, Pcp Primary Care Provider Unavailabl e Reason for Visit * Outpatient (Routine) - Closed Specialty Diagnoses / Procedures Referred By Dionte garcia Referred To Contact Diagnoses Bleeding Dysfunctional Uterine Procedures US Pelvis Transvaginal Librado Blanton M.D. [address] [place] [phone] [facility] Referral ID Status Reason Start Date Expiration Date Visits Re quested Visits Authorized [id number] Closed 02/19/2023 02/19/2024 1 1 Encounter Details Date Type Department Care Team (Latest Contact Info) Description 02/19/2023 1:30 PM MEDICAL ILLUSTRATOR Ancillary Procedure Department of Obstetrics and Gynecology in [place], [place] [address] [place] [phone] Librado Blanton M.D. [address] [place] [phone] Bleeding Dysfunctional Uterine Social History Tobacco [...] How often do you attend chur or zoroastrian services? More than 4 times per year 04/04/2022 Do you belong to any clubs o r organizations such as episcopal groups, unions, fraternal or athletic groups, or [...] Answer Date Recorded PHQ-2 Score 4 04/11/2019 [facility] of Occupat ional Health - Occupational Stress [...] inpatients and all outpatients) 02/19/2023 1:41 PM MEDICAL ILLUSTRATOR Bleeding Dysfunctional Uterine documented in this encounter Results * US Pelvis Transvaginal (02/19/2023 1:41 PM MEDICAL ILLUSTRATOR) Anatomical Region Laterality Modality Pelvis, Ultrasound RST LOS, Ultrasound ARZ LOS, Ultrasound FLA LOS N/A Ultrasound 02/19/2023 1:48 PM MEDICAL ILLUSTRATOR Impressions 02/19/2023 1:49 PM MEDICAL ILLUSTRATOR Normal pelvic ultrasound Narrative 02/19/2023 1:49 PM MEDICAL ILLUSTRATOR EXAM: US PELVIS TRANSVAGINAL COMPARISON: TECHNIQUE: Transvaginal. [...] Total Score: 11 04/11/ 020 4:00 PM MEDICAL ILLUSTRATOR documented as of this encounter Care Teams Focused Factory Manager Relationship Specialty Start Date End Date Elsewhere, Pcp PCP - General Proposal Review Analyst 03/18/19 documented as of this encounter
--- OUTSIDE RECORDS SUMMARY | 2023-05-01 16:20 | XMS_ITS | Encounter Summary ---
Author Name Unknown Organization [facility] Address [address] [place] [address] Care Team Providers Care Horticultural Specialty Grower Field Name Role Phone Elsewhere, Pcp Primary Care Provider Unavailabl e Reason for Referral * Outpatient (Routine) - Authorized Specialty Diagnoses / Procedures Referred By Contac t Referred To Contact Diagnoses Bleeding Dysfunctional Uterine Procedures Endometrial Sampling Librado Blanton M.D. [address] [place] [address] [facility] Referral ID Status Reason Start Date Expiration Date V isits Requested Visits Authorized [id number] Authorized 02/19/2023 02/19/2024 1 1 AND BALANCE ENGINEER * Outpatient (Routine) - Closed Specialty Diagnoses / Procedures Referred By Contac t Referred To Contact Diagnoses Bleeding Dysfunctional Uterine Procedures US Pelvis Transvaginal Librado Blanton M.D. [address] [place] [address] [facility] Referral ID Status Reason Start Date Expiration Date Visits Re quested Visits Authorized [id number] Closed 02/19/2023 02/19/2024 1 1 AND BALANCE ENGINEER Reason for Visit * Reason Comments Menorrhagia * Appointment Request (Routine) - Closed Specialty Diagnoses / Procedures Referred By Contac t Referred To Contact Obstetrics and Gynecology Diagnoses Menometrorrhagia Espinoza Montanez M.D. [address] [place] [address] Referral ID Status Reason Start Date Expiration Date Visits Re quested Visits Authorized [id number] Closed 02/12/2023 02/12/2024 1 1 Encounter Details Date Type Department Care Team (Latest Contact Info) Description 02/19/2023 1:15 PM TEST AND BALANCE ENGINEER Comprehensive Visit Department of Obstetrics and Gynecology in [address] [address] Librado Blanton M.D. [address] [place] [address] Bleeding Dysfunctional Uterine (Primary Dx) [...] week 04/04/2022 How often do you attend [facility] or catholic services? More than 4 times per year 04/04/2022 Do you belong to any clubs o r organizations such as hoahaoism groups, unions, fraternal or athletic groups, or [...] Answer Date Recorded PHQ-2 Score 4 04/11/2019 [facility] of Occupat ional Health - Occupational Stress [...] place to sleep or slept in a long-term (including now)? No 04/04/2022 Depression Answer Date [...] Comments Blood Pressure 118/84 02/19/2023 1:00 PM TEST AND BALANCE ENGINEER Pulse - - Temperature - - Respiratory Rate - - Oxygen Saturation - - Inhaled Oxygen Concentration - - Weight 89.1 kg (196 lb 6.9 oz) 02/19/2023 1:00 P M TEST AND BALANCE ENGINEER Height 176 cm (5' 9.29) 02/19/2023 1:00 PM TEST AND BALANCE ENGINEER Body Mass Index 28.76 02/19/2023 1:00 PM TEST AND BALANCE ENGINEER documented in this encounter Progress Notes * [...] OB history: P4004, status post x2, x2. Hosiery Pairer history: Patient's last menstrual period was 02/15/2023.. [...] appearing external genitalia, Bartholin glands, urethra, and [place]willow's glands. Vagina: No masses or lesions. No [...] Sampling Librado Blanton M.D. 02/19/2023 1:12 PM TEST AND BALANCE ENGINEER AND BALANCE ENGINEER documented in this encounter Procedure Notes * [...] completed successfully: yes Complications: no apparent complications RESIDENT PROGRAMS ASSISTANT AND BALANCE ENGINEER documented in this encounter Plan of Treatment Not on file documented as of this encounter Procedures Procedure Name Priority Date/Time Associated Diagnosis Comments SURGICAL PATHOLOGY Routine 02/19/2023 1: 55 PM TEST AND BALANCE ENGINEER Bleeding Dysfunctional Uterine AZ BX ENDOMETRIAL WO CERVIX DIL Routine 02/19/2023 1:15 PM TEST AND BALANCE ENGINEER Bleeding Dysfunctional Uterine documented in this encounter Results * Surgical Pathology (02/19/2023 1:55 PM TEST AND BALANCE ENGINEER) 02/23/2023 9:52 AM TEST AND BALANCE ENGINEER MKTO Report electronically signed by Aysha Mckeon MD 02/23/2023 9:52 AM TEST AND BALANCE ENGINEER MKTO Specimen Received A. Endometrial biopsy 02/23/2023 9:52 AM TEST AND BALANCE ENGINEER MKTO Clinical History Dysfunctional uterine bleeding 02/23/2023 9:52 AM TEST AND BALANCE ENGINEER MKTO Gross Description Submitted as endometrium and consists of hemorrhagic domingo tissues filtering to a loose 0.6 cm. ESB, one block. mpg/nm 02/23/2023 9:52 AM TEST AND BALANCE ENGINEER MKTO Interpretation FINAL DIAGNOSIS Endometrium, biopsy: Inactive endometrium with decidualized stroma (exogenous progestational effect) with glandular and stromal breakdown. 02/23/2023 9:52 AM TEST AND BALANCE ENGINEER MKTO Tissue 02/19/2023 1:55 PM TEST AND BALANCE ENGINEER 02/20/2023 8:43 AM TEST AND BALANCE ENGINEER Librado Blanton M.D. LAB SURG PATH [facility] [address] [place] [address], [facility] MKTO [facility] [place] [address] * US Pelvis Transvaginal (02/19/2023 1:41 PM TEST AND BALANCE ENGINEER) Anatomical Region Laterality Modality Pelvis, Ultrasound RST LOS, Ultrasound ARZ LOS, Ultrasound FLA LOS N/A Ultrasound 02/19/2023 1:48 PM TEST AND BALANCE ENGINEER Impressions 02/19/2023 1:49 PM TEST AND BALANCE ENGINEER Normal pelvic ultrasound Narrative 02/19/2023 1:49 PM TEST AND BALANCE ENGINEER EXAM: US PELVIS TRANSVAGINAL COMPARISON: TECHNIQUE: Transvaginal. [...] ENDOMETRIAL WO CERVIX DIL (02/19/2023 1:15 PM TEST AND BALANCE ENGINEER) Narrative MMODAL - 02/19/2023 1:15 PM TEST AND BALANCE ENGINEER Librado Blanton M.D. ? 02/19/2023 ??1:52 PM [...] Depression Total Score: 11 020 4:00 PM TEST AND BALANCE ENGINEER documented as of this encounter Care Teams Horticultural Specialty Grower Field Relationship Specialty Start Date End Date Elsewhere, Pcp PCP - General Director Of Casino 03/18/19 documented as of this encounter
--- OUTSIDE RECORDS SUMMARY | 2023-05-01 16:20 | XMS_ITS ---
Author Name Unknown Organization [facility] Address [address] [place] [address] Care Team Providers Care Director Of Services Name Role Phone Unavailable Unavailable Unavailable Surgery Details Not on file Complications Check Surgery Details section. Procedure Estimated Blood Loss Check Surgery Details section. Procedure Findings Check Surgery Details section. Procedure Specimens Taken Check Surgery Details section.
--- OUTSIDE RECORDS SUMMARY | 2023-05-01 16:20 | XMS_ITS | Encounter Summary ---
Author Name Unknown Organization [facility] Address [address] [place] [address] Care Team Providers Care Heat Sealing Machine Operator Name Role Phone Elsewhere, Pcp Primary Care Provider Unavailabl e Encounter Details Date Type Department Care Team (Late st Contact Info) Description 02/19/2023 Clinical Communication Department of Obstetrics and Gynecology in [place], [place] [address] [place] [phone] Librado Blanton M.D. [address] [place] [phone] Social History Tobacco Use Types Packs/Day Years [...] often do you attend chur ch or methodist services? More than 4 times per year 04/04/2022 Do you belong to any clubs o r organizations such as islam groups, unions, fraternal or athletic groups, or [...] Answer Date Recorded PHQ-2 Score 4 04/11/2019 [facility] [place] of Occupat ional Health - Occupational Stress [...] Elayne Lynne L.PSivaN. - 02/19/2023 2:02 PM DIRECTOR OF LOGISTICS [facility] Surgery Clinic Checklist Patient Contact Number: [phone] Surgeon: Franny Surgical Service: (_) Orthopedics (_) General surgery (_) Ophthalmology (_) Podiatry (_) ENT (_) Urology (X) OB / Gynecology (_) Other Date of Surgery: 04/03/23 [facility] of Surgery[facility] Procedure (as written on Consent): total laparoscopic hysterectomy, bilateral salpingectomy Right, Left, Bilateral, N/A: Diagnosis (reason for surgery): AUB, prior sterilization ICD-10: n93.8 CPT: 82630 CTOR OF LOGISTICS documented in this encounter Plan of Treatment Not on file documented as of this encounter Visit Diagnoses Not on filedocumented in this encounter Additional Health Concerns Assessment Noted Time PHQ-9 Depression Total Score: 11 020 4:00 PM DIRECTOR OF LOGISTICS documented as of this encounter Care Teams Heat Sealing Machine Operator Relationship Specialty Start Date End Date Elsewhere, Pcp PCP - General Offc Spec 03/18/19 documented as of this encounter
--- OUTSIDE RECORDS SUMMARY | 2023-05-01 16:20 | XMS_ITS | Clinical Summary ---
Author Name Unknown Organization [facility] Address [address] [place] [address] Care Team Providers Care Dot Etcher Apprentice Name Role Phone More Conde Primary Care Provider [phone] Source Comments You are receiving this document as you are listed as the primary care provider,follow-up provider, or the patient has been referred to you for consultation.This is in compliance with the Medicare and[facility] Cent[facility]aid EHR Incentive Program,which states Providers who transition their patient to another setting of careor provider of care or refers their patient to another provider of care shouldprovide summary care record for each transition of care or referral. [facility] Allergies Active Allergy Reactions Criticality Noted Date [...] (Polio) 10/09/1998,01/11/1998,12/13/1997 Influenza IIV4 (Quadrivalent ) 0.5mL (43815) 02/21/2010 MMR 10/09/1998 PPSV23 (Pneumovax) 10/18/2012 Pneumococcal [...] CDT Oxygen Saturation 98% 04/19/2017 7:46 PM HOSE TESTER Inhaled Oxygen Concentration - - Weight 94.6 [...] 6:06 AM 10/23/2016 3:44 PM Care Teams Dot Etcher Apprentice Relationship Specialty Start Date End Date More Conde MBBS [address] [place] [id number] PCP - General Family Practice 07/19/19
== END 2023-04-30 09:49 | disposition home or self-care (01) ==
LOC: AMB 05-01 16:17
PROVIDERS: PCP Family Medicine; Visit Provider Family Medicine
DX: R10.9 Unspecified abdominal pain (principal); R11.10 Vomiting, unspecified
CPT/HCPCS: A0425; A0427

== ENCOUNTER 2023-04-30 10:22 | Emergency (ER) | payer BC, SELFPAY ==
[2023-04-30 10:31] VITALS: BP 108/75; PULSE 92; RESP 20; TEMP 36.9; O2SAT 98; BMI 30.9
[2023-04-30 10:47] LABS: Appearance Urine Clear (Clear); Bilirubin Urine 1+ (Negative); Blood Urine Negative (Negative); Color Urine Yellow (Yellow); Glucose Urine Negative (Negative); Ketones Urine Trace (Negative); Leukocyte Esterase Urine Negative (Negative); Nitrite Urine Negative (Negative); Protein Urine Negative (Negative); Specific Gravity Urine >= 1.030 (1.000-1.030); Urobilinogen Urine 0.2 (0.2-1.0)
[2023-04-30 10:50] LABS: Ur HCG Qualitative* Negative (Negative)
--- NOTE | 2023-04-30 11:04 | ED.ABDPAIN ---
HPI - Abdominal Pain General Time Seen by Provider: 11:04 Date Seen: 04/30/23 Chief Complaint: Abdominal Pain Stated Complaint: Abdominal pain Time Seen by Provider: 04/30/23 11:03 Source: patient, RN notes reviewed and old records reviewed Mode of arrival: EMS Limitations: no limitations History of Present Illness HPI narrative: Liudmila is a 38-year-old female with history of chronic pain, past history of methamphetamine use, C-sections who comes to the emergency room for evaluation of abdominal pain vomiting and diarrhea. Patient is describing her pain epigastrium and right upper quadrant with wrap around to the back. She states that she has never had pain like this before. She is preferring to lay still but even then she still has discomfort. No blood in her vomiting or stool. Patient had the onset of symptoms early this morning. She describes pain 01/13 and was given morphine by EMS. She notes that when the fire department 1st came to her home and [place] after calling 911 they said she had a blood pressure of 50 and was low on her oxygen. EMS did not note hypoxia and blood pressure upon arrival was 108 systolic. Patient denies possibility of as she does have her tubes tied. Patient notes that she had been taking weight loss medication Liraglutide but has not taken that in over a month because it made her sick. Related Data Home Medications Medication Instructions Recorded Confirmed bupropion HCl 300 mg 24 hr tablet, mg PO 10/07/21 extended release buspirone 10 mg tablet mg 10/07/21 cyclobenzaprine 10 mg tablet mg 10/07/21 liraglutide (weight loss) 3 mg/0.5 mg subcut 10/07/21 mL (18 mg/3 mL) subcut pen injector (Saxenda) omeprazole 10 mg capsule,delayed 10 mg PO DAILY 10/07/21 10/07/21 release amitriptyline 10 mg tablet 10 mg PO QPM 04/30/23 04/30/23 clonidine HCl 0.1 mg tablet mg PO 04/30/23 lamotrigine 25 mg tablet 50 mg PO DAILY 04/30/23 04/30/23 rizatriptan 10 mg disintegrating mg PO 04/30/23 tablet topiramate 25 mg tablet 25 mg PO BID 04/30/23 04/30/23 Previous Rx's Medication Instructions Recorded ondansetron 4 mg disintegrating 4 mg PO Q8-12H PRN nausea and 04/30/23 tablet vomiting #10 tabs Allergies Allergy/AdvReac Type Severity Reaction Status Date / Time Penicillins AdvReac Severe Anaphylaxis Verified 04/30/23 13:08 metoclopramide [From Reglan] AdvReac Intermediate Verified 04/30/23 13:08 acetaminophen [From Vicodin] AdvReac Verified 04/30/23 13:08 hydrocodone [From Vicodin] AdvReac Verified 04/30/23 13:08 Review of Systems Status of ROS Reports: 10 or more systems reviewed and unremarkable except as noted in History and below Const Reports: fatigue; Denies: fever or chills ENMT Denies: throat pain Cardio Denies: chest pain, swelling of feet/ankles or shortness of breath with exertion Resp Denies: shortness of breath GI Reports: abdominal pain, nausea, vomiting and diarrhea; Denies: blood in stool Denies: painful urination or urinary frequency Musculo Reports: back pain Endo Reports: fatigue PFSH PFSH Medical History PTSD (post-traumatic stress disorder) ?F43.10 - Post-traumatic stress disorder, unspecified (ICD-10) Depression ?F32.A - Depression, unspecified (ICD-10) Anxiety ?F41.9 - Anxiety disorder, unspecified (ICD-10) Methamphetamine use disorder, moderate, in sustained remission ?F15.21 - Other stimulant dependence, in remission (ICD-10) Chronic pain ?G89.29 - Other chronic pain (ICD-10) Surgical History History of ?Z98.891 - History of uterine scar from previous surgery (ICD-10) Social History Smoking Status: Current every day smoker Do you use any of these nicotine containing products: Vaping Products Second hand tobacco smoke exposure: No How often do you have a drink containing alcohol: never How often do you have six or more drinks on one occasion: Never AUDIT-C Alcohol total score: 0 Non-prescribed substance use: former substance user and marijuana (any form) service: No Exam Narrative: Exam Narrative: Liudmila is lying on her side when I enter the room. She is able to move onto her back with minimal difficulty. She seems very anxious at this time. External ears eyes nose clear. Lips are dry but tongue is with wet mucous membranes. Heart with a regular rate and rhythm and lungs are clear bilaterally. Abdomen shows tenderness throughout but mainly in the right upper quadrant. Noted abdominal distension noted. No pulsating mass noted. No CVA tenderness with percussion. Lower extremities are without edema or calf tenderness. Const: Vital Signs, click to edit/add: Vital Signs - 24 hr 04/30/23 10:31 04/30/23 12:09 Temperature 98.4 F Pulse Rate 75 Pulse Rate [Pulse Oximeter] 92 Respiratory Rate 20 Blood Pressure 101/57 L Blood Pressure [Ri ght Upper Arm] 108/75 Pulse Oximetry 98 96 Oxygen Delivery Me thod Room Air Documenting provider has reviewed patient's vital signs: yes Course Course ED Course: Differential diagnosis includes but is not limited to gastroenteritis, colitis whether viral bacterial or autoimmune, diverticulitis, internal hernia. Will give 1 L of normal saline, 15 mg of IV Toradol, labs to include CBC, comprehensive panel, lactate, lipase, urinalysis. Will start with right upper quadrant ultrasound given the right upper quadrant pain. Reevaluation(s) Reevaluation #1: Ultrasound is negative for gallbladder abnormalities. Will proceed with CT is patient tells me she still has continued pain. Ativan 0.5 mg IV at this time. Reevaluation #2: Patient given morphine 4 mg with continue complaints of pain. Given the fact that labs are reassuring at this time with normal white count, creatinine, lactate would like to be very cautious with narcotic pain medicines given patient's past history of illicit substance use. ALT and alk-phos have come back elevated. CRP is normal. Urinalysis without evidence of UTI and hCG is negative. Vital Signs Vital signs: Initial Vital Signs Temperature 98.4 F 04/30/23 10:31 Temperature Source Temporal Artery Scan 04/30/23 10:31 Pulse Rate 92 04/30/23 10:31 Respiratory Rate 20 04/30/23 10:31 Blood Pressure 108/75 04/30/23 10:31 Blood Pressure Mean 86 04/30/23 10:31 Blood Pressure Position Supine 04/30/23 10:31 Pulse Oximetry 98 04/30/23 10:31 Oxygen Delivery Method Room Air 04/30/23 10:31 Vital Signs Temperature 98.4 F 04/30/23 10:31 Pulse Rate 92 04/30/23 10:31 Respiratory Rate 20 04/30/23 10:31 Blood Pressure 108/75 04/30/23 10:31 Pulse Oximetry 98 04/30/23 10:31 Oxygen Delivery Method Room Air 04/30/23 10:31 Temperature 98.4 F 04/30/23 10:31 Pulse Rate 75 04/30/23 12:09 Respiratory Rate 20 04/30/23 10:31 Blood Pressure 101/57 L 04/30/23 12:09 Pulse Oximetry 96 04/30/23 12:09 Oxygen Delivery Method Room Air 04/30/23 10:31 Medications Administered Medications: Discontinued Medications Generic Name Dose Route Start Last Admin Trade Name Freq PRN Reason Stop Dose Admin Sodium Chloride 1,000 mls @ 1,000 mls/hr 04/30/23 11:05 04/30/23 12:25 0.9 % Sodium Chloride 1000 Ml IV 04/30/23 12:04 Infused .Q1H MINH Infusion Ketorolac Tromethamine 15 mg 04/30/23 11:30 04/30/23 11:40 Ketorolac 15 Mg/Ml Inj IVP 04/30/23 11:31 15 mg ONCE ONE Administration Lorazepam 0.5 mg 04/30/23 11:43 04/30/23 11:53 Lorazepam 2 Mg/Ml Inj IVP 04/30/23 11:44 0.5 mg ONCE ONE Administration Morphine Sulfate 4 mg 04/30/23 13:11 04/30/23 13:36 Morphine 4 Mg/Ml Inj IVP 04/30/23 13:12 4 mg ONCE ONE Administration MDM - Abdominal Pain MDM Narrative Medical decision making narrative: 1. Abdominal pain nausea vomiting and diarrhea-patient noted to have reassuring lab values with normal white count. Minimally elevated ALT and alkaline phosphatase but negative right upper quadrant ultrasound and ultimately CT did not show any evidence of colitis, diverticulitis or gallbladder disease. We have seen a fair bit of this illness recently and this is likely stemming from a viral gastroenteritis. Patient did receive in the ED Toradol 15 mg IV, Ativan 0.5 mg IV, Toradol 4 mg IV and morphine 4 mg IV. I did explain that I would not be using narcotics to treat this illness as everything we have found has been reassuring. However, she will need to follow-up for worsening symptoms and as needed. She should probably expect nausea and possibly vomiting to continue over the next 8-12 hours. Diarrhea may continue over the next 2-3 days. I advised her not to use the medications such as Imodium. I advise keeping well hydrated. 2. Disposition-home at this time. Return for worsening symptoms. Trudi is sent to pharmacy. Today patient did receive cook narcotic pain medications while awaiting results of CT. Given findings, history of illicit drug use I would not recommend any narcotics for control of pain at this time with negative CT and reassuring labs. Medical Records Attestation: I reviewed the patient's medical records. Lab Data Attestation: I reviewed the patient's lab results. Labs: Lab Results 04/30/23 04/30/23 Range/Units 11:10 Unknown WBC 9.60 (4.50-11.00) K/uL RBC 5.14 (4.00-5.20) m/uL Hgb 14.4 (12.0-16.0) gm/dL Hct 45.4 (33.0-51.0) % MCV 88 (80-100) fL MCH 28 (26-34) pg MCHC 32 (32-36) gm/dL RDW Coeff of Mackenzie 12.8 (11.5-15.5) % Plt Count 306 (140-440) K/uL Neut % (Auto) 92.9 H (42.0-72.0) % Lymph % (Auto) 1.4 L (20-44) % [place] % (Auto) 4.5 (0.0-11.0) % Eos % (Auto) 0.9 (0.0-7.0) % Baso % (Auto) 0.1 (0.0-3.0) % Neut # (Auto) 8.90 H (1.7-7.0) K/uL Lymph # (Auto) 0.10 L (0.90-2.90) K/uL [place] # (Auto) 0.40 (0.00-0.90) K/UL Eos # (Auto) 0.09 (0.00-0.50) K/uL Baso # (Auto) 0.01 (0.00-0.30) K/uL Abs Immat Gran (auto) 0.02 (0.00-0.30) K/uL Imm/Tot Granulo (auto) 0.2 % Sodium 144 (135-149) mmol/L Potassium 3.8 (3.6-5.1) mmol/L Chloride 116 H (96-114) mmol/L Carbon Dioxide 16 L (20-32) mmol/L Anion Gap 12 (7-15) mEq/L BUN 18 (5-24) mg/dL Creatinine 0.9 (0.5-1.5) mg/dL Estimated Creat Clear 86.33 Estimated GFR 84 ml/min Glucose 111 (60-115) mg/dL Lactate 0.7 (0.5-1.9) mmol/L Calcium 9.2 (8.4-10.6) mg/dL Total Bilirubin 0.8 (0.1-1.5) mg/dL AST 29 (12-35) U/L ALT 75 H (4-35) U/L Alkaline Phosphatase 167 H (40-150) U/L C-Reactive Protein 0.6 (0.5-1.0) mg/dL Total Protein 8.0 (6.0-8.3) g/dL Albumin 4.6 (3.3-5.0) g/dL Lipase 256 (23-300) U/L Urine Color Yellow (Yellow) Urine Appearance Clear (Clear) Urine pH 5.0 (5.0-8.5) Ur Specific [place] >= 1.030 (1.000-1.030) Urine Protein Negative (Negative) Urine Glucose (UA) Negative (Negative) Urine Ketones Trace A (Negative) Urine Blood Negative (Negative) Urine Nitrite Negative (Negative) Urine Bilirubin 1+ A (Negative) Urine Urobilinogen 0.2 (0.2-1.0) Ur Leukocyte Esterase Negative (Negative) Urine RBC 0-2 (0-2) Urine WBC 0-2 (0-5) Ur Squamous Epith Cells Few (None-Few) Urine Bacteria None (None) Urine HCG, Qual Negative (Negative) Imaging Data US - abdomen: Attestation: I have reviewed the pertinent imaging results. Radiologist's impression: Liver: Normal in size and echotexture. No suspicious masses. No intrahepatic biliary dilatation. Gallbladder: No stones or sludge. Normal wall thickness. No pericholecystic fluid. Common bile duct: 4 mm. Pancreas: Unremarkable. Right kidney: Normal in size. Normal echotexture and cortex. No suspicious masses, stones, or hydronephrosis. Vasculature: Proximal abdominal aorta and IVC are unremarkable. IMPRESSION: Unremarkable right upper quadrant ultrasound. CT scan - abdomen: Attestation: I have reviewed the pertinent imaging results. Radiologist's impression: LUNG BASES: The lung bases as visualized appear normal.The heart size is normal at the lung bases. LIVER/BILIARY SYSTEM:The liver is normal in size and configuration. There is no focal mass and there is no intra- or extra hepatic biliary ductal dilatation.Distended bed otherwise unremarkable appearing gallbladder. Probable mild steatosis ADRENALS: Normal KIDNEYS, URETERS and BLADDER:The kidneys appear normal. No visible mass, calculus or hydronephrosis. The ureters and bladder as visualized appear normal. SPLEEN:Normal appearance. PANCREAS: Appears normal. RETROPERITONEUM and MESENTERY: There is no mass, adenopathy or aortic aneurysm. GASTROINTESTINAL SYSTEM: There is no evidence of diverticulitis, colitis, mechanical obstruction, or appendicitis. The small bowel as visualized appears normal. PELVIS: No mass, adenopathy or free fluid. OSSEOUS STRUCTURES and ABDOMINAL WALL: There is an age-appropriate appearance of the osseous structures.No significant abdominal wall defect. OTHER: No free fluid or free air. IMPRESSION: No visible cause for right upper quadrant pain Discharge Plan Discharge Clinical Impression: Abdominal pain, vomiting, and diarrhea Patient Disposition: Home, Self-Care Condition: Improved Instructions: Acute Nausea and Vomiting (DC), Abdominal Pain (ED) Additional Instructions: Zofran as needed for nausea. Ibuprofen or Tylenol as needed for discomfort. You did have mild elevation of 2 of your liver test. You will need to follow up to have this recheck by your doctor next week. Recommend pushing fluids as much as possible. [place]oup foods recommended. You are likely contagious. Good handwashing to prevent the spread of this illness. Return as needed. Prescriptions: New ondansetron 4 mg tablet,disintegrating 4 mg PO Q8-12H PRN (Reason: nausea and vomiting) Qty: 10 0RF No Action buspirone 10 mg tablet Patient Comments: TAKE 2 TABLETS BY MOUTH TWICE DAILY bupropion HCl 300 mg tablet extended release 24 hr PO Patient Comments: TAKE 1 TABLET BY MOUTH EVERY DAY Saxenda 3 mg/0.5 mL (18 mg/3 mL) pen injector SUBCUT Patient Comments: ADMINISTER 3 MG UNDER THE SKIN DAILY omeprazole 10 mg capsule,delayed release(DR/EC) 10 mg PO DAILY cyclobenzaprine 10 mg tablet clonidine HCl 0.1 mg tablet PO topiramate 25 mg tablet 25 mg PO BID lamotrigine 25 mg tablet 50 mg PO DAILY amitriptyline 10 mg tablet 10 mg PO QPM rizatriptan 10 mg tablet,disintegrating PO Follow Up/Referrals: Provider,Not a Local [Referring] - Stand Alone Forms: [facility] Info Instructions
[2023-04-30 11:11] LABS: RBC Urine 0-2 (0-2); Squamous Epithelial Cell Urine Few (None-Few); WBC Urine 0-2 (0-5)
[2023-04-30] MEDS: 0.9 % SODIUM CHLORIDE 1000 ml 1,000 ML IV (11:15)
--- OUTSIDE RECORDS SUMMARY | 2023-04-30 11:17 | XMS_ITS | Clinical Summary ---
Author Name Unknown Organization [employer] [facility] Address [place], [place] [address] Care Team Providers Care Solderer Name Role Phone Espinoza Montanez MD Primary Care Provider Flaca Miles Unavailable Unavaila ble Allergies Active Allergy Reactions Criticality Noted Date Comments Blood-Group Specific Substance Dizziness 12/08/2007 Patient has Probable Passive Anti-D Blood Product orders may be delayed. ??Draw one red top and two purple top tubes for ALL Type and Screen/ Type and Crossmatch orders. Patient has Probable Passive Anti-D Blood Product orders may be delayed.?Draw one red top and two purple top tubes for ALL Type and Screen/ Type and Crossmatch orders. Patient has Probable Passive Anti-D Blood Product orders may be delayed.?Draw one red top and two purple top tubes for ALL Type and Screen/ Type and Crossmatch orders. Codeine Dyspnea 07/13/2010 Converted from Generic Allergy: Apap/Codeine Hydrocodone Hives,Dyspnea 08/04/2010 Metoclopramide Anxiety,GI Upset,Dizziness,O ther - Describe In Comment Field,Dyspnea Low 09/08/2007 Reports dystonia Reports dystonia Reports dystonia Pt states becomes agitated and her body shakes. Reports dystonia Pt states becomes agitated and her body shakes. Morphine Hives High 10/21/2016 Penicillins Hives,Shortness Of Breath,Dyspnea High 09/18/2004 Other reaction(s): Breathing Difficulty Pt has tolerated cephalosporins in the past Pt has tolerated cephalosporins in the past Metoclopramide Agitation 09/08/2007 Pt states becomes agitated and her body shakes. Hydrocodone-Acetaminoph en Hives 01/01/2007 Medications Medication Sig Dispensed Refills Start Date End Date Status buPROPion (WELLBUTRIN XL) 300 mg Extended-Release tablet Take 1 Tablet (300 mg) by mouth once daily. 0 2 Active cyclobenzaprine (FLEXERIL) 10 mg tabletIndications:S pasm,Fibromyalgia Take 1 Tablet (10 mg) by mouth 3 times daily if needed for Muscle Spasm. 90 Tablet 3 2 Active cloNIDine HCL (CATAPRES) 0.1 mg tablet Take 0.1 mg by mouth in morning and 0.05 mg (half tablet) in evening 0 3 Active busPIRone (BUSPAR) 30 mg tablet Take 30 mg by mouth two times daily. 0 3 Active multivitamin (MVI) tablet Take 1 Tablet by mouth once daily. 0 Active omeprazole (PRILOSEC) 20 mg Delayed-Release capsule Take 20 mg by mouth once daily. 0 Active oxyCODONE 10 mg tabletIndications:I ntractable persistent migraine aura without cerebral infarction and with status migrainosus Take 1 Tablet (10 mg) by mouth every 6 hours if needed for Pain. 15 Tablet 0 3 Active naproxen (NAPROSYN) 500 mg tabletIndications:H A (headache) Take 1 Tablet (500 mg) by mouth every 12 hours if needed for Pain or Headache. 30 Tablet 0 3 Active rizatriptan (MAXALT API PRODUCT MANAGER) 10 mg disintegrating tabletIndications:S tatus migrainosus Place 1 Tablet (10 mg) on the tongue 2 times daily if needed for Migraine. Give at minimum 2hrs apart. Max Dose: 30mg per 24hrs. 10 Tablet 3 3 Active ondansetron (ZOFRAN) 4 mg tabletIndications:M igraine without aura and with status migrainosus, not intractable Take 1 Tablet (4 mg) by mouth every 8 hours if needed for Nausea/Vomiting (nausea) for up to 20 doses. 20 Tablet 0 3 Active acetaminophen-caffe ine-butalbital (FIORICET) 325-40-50 mgIndications:Statu s migrainosus TAKE 1 TABLET BY MOUTH EVERY 4 HOURS NEEDED FOR HEADACHE. MAX 6 DOSES PER DAY. MAX ACETAMINOPHEN DOSE 4000 MG IN 24 HOURS 30 Tablet 0 3 Active topiramate (TOPAMAX) 100 mg tabletIndications:M igraine aura, persistent, intractable TAKE 1 TABLET(100 MG) BY MOUTH EVERY DAY 30 Tablet 3 3 Active liraglutide, weight loss, (Saxenda) 3 mg/0.5 mL (18 mg/3 mL) subcutaneous penIndications:Clas s 1 obesity with body mass index (BMI) of 32.0 to 32.9 in adult, unspecified obesity type, unspecified whether serious comorbidity present ADMINISTER 3 MG UNDER THE SKIN DAILY 15 mL 2 3 Active Insulin [place], Disposable, (BD Polly 2nd Gen Pen Needle) 32 gauge x /32Indications:Cl ass 1 obesity with body mass index (BMI) of 32.0 to 32.9 in adult, unspecified obesity type, unspecified whether serious comorbidity present As directed. DAILY USE. Remove the 2 covers on the pen needle before administering Saxenda dose. 100 Each 0 3 Active buPROPion (WELLBUTRIN XL) 150 mg Extended-Release tablet Take 150 mg by mouth once daily. Take in addition to the 300 mg tablet for a total daily dose of 450 mg. 0 3 Active topiramate (TOPAMAX) 25 mg tabletIndications:M igraine aura, persistent, intractable TAKE 2 TABLETS(50 MG) BY MOUTH EVERY DAY 180 Tablet 0 3 Active amitriptyline (ELAVIL) 10 mg tabletIndications:I ntractable persistent migraine aura without cerebral infarction and with status migrainosus TAKE 1 TABLET(10 MG) BY MOUTH AT BEDTIME 60 Tablet 1 3 Active rOPINIRole (REQUIP) 1 mg tabletIndications:H A (headache),Status migrainosus TAKE 1 TABLET BY MOUTH TWICE DAILY 60 Tablet 3 3 Active prochlorperazine (COMPAZINE) 10 mg tabletIndications:N ausea and vomiting in adult,Acute nonintractable headache, unspecified headache type Take 1 Tablet (10 mg) by mouth every 6 hours if needed for Nausea/Vomiting (Headache). 15 Tablet 0 3 Active Wegovy 1.7 mg/0.75 mL penIndications:Over weight (BMI 25.0-29.9) INJECT 1.7MG SUBCUTANEOUS ONCE WEEKLY. TRANSITIONING FROM SAXENDA 3MG DUE TO SUPPLY SHORTAGE 3 mL 0 3 Active ondansetron (ZOFRAN ODT) 4 mg disintegrating tabletIndications:C lass 1 obesity with body mass index (BMI) of 32.0 to 32.9 in adult, unspecified obesity type, unspecified whether serious comorbidity present,Overweight (BMI 25.0-29.9) Place 1 Tablet (4 mg) on the tongue every 8 hours if needed for Nausea/Vomiting. 30 Tablet 3 4 Active ondansetron (ZOFRAN ODT) 4 mg disintegrating tabletIndications:C lass 1 obesity with body mass index (BMI) of 32.0 to 32.9 in adult, unspecified obesity type, unspecified whether serious comorbidity present Place 1 Tablet (4 mg) on the tongue every 8 hours if needed for Nausea/Vomiting. 30 Tablet 3 3 04/14/19 24 Discontinue d(Reorder (E-cancel not sent)) nitrofurantoin macrocrystals/monoh ydrate (MACROBID) 100 mg capsuleIndications: UTI (urinary tract infection), uncomplicated Take 1 Capsule (100 mg) by mouth two times daily for 5 days. 10 Capsule 0 4 04/14/19 24 Hospital, Clinic, or Other Facility Administered Medication Ordered Dose Route Frequency Start Date End Date Status medroxyPROGESTERone acetate (contraceptive) (DEPO-PROVERA) injection 150 mgIndications:Uses contraception 150 mg IM Q 3 MONTHS (12 WEEKS) 12/04/2020 Active medroxyPROGESTERone acetate (contraceptive) (DEPO-PROVERA) injection 150 mgIndications:Depo-Pr overa contraceptive status 150 mg IM Q 3 MONTHS (12 WEEKS) 07/11/2022 06/12/2023 Active Active Problems Patient Care Coordination No te Formatting of this note migh t be different from the original. Meeting Facilitator Orders placed for 2021 Problem Noted Date Diagnosed Date Acute migraine 08/06/2022 Chronic bilateral low back pain with bilateral s ciatica 11/03/2019 Methamphetamine use disorder , moderate, in sustained remission 01/30/2017 Overview: treatment, graduation 03/21/20 last use date 10/16/2018 Major depressive disorder, recurrent episode, nano bangura 11/11/2016 Overview: [facility] Smoker 11/10/2016 Night terror 10/30/2016 Chronic post-traumatic stress disorder 7 Chronic pain syndrome 10/26/2016 Non-intractable vomiting with nausea 10/26/2016 Overview: with menses Anxiety disorder 10/25/2016 Pap smear for cervical cancer screening 04/13/19 08 Overview: 2003 LSIL 07/2003 [place]: CONCHIS I, ECC Benign 2005 LSIL 07/2005 [place]: No Bx 11/2005 [place]: CONCHIS 1, ECC Benign 04/2007 LSIL/HPV+ 05/2007 [place]: No Bx 12/2007 NIL 12/2008 NIL 02/2010 NIL 12/2011 NIL 10/2019 NIL/HPV negative 05/2022 NIL/HPV negative Plan:Pap/HPV due 05/2027 Goiter, unspecified 09/18/2004 Insomnia, unspecified 09/18/2004 Resolved Problems Problem Noted Date Diagnosed Date Resolved Date Right middle lobe pneumonia 11/03/2019 11/03/2019 Mid back pain 01/13/2017 11/03/2019 Bilateral leg pain 01/13/2017 0 Weakness of both lower extremities 01/13/2017 11/03/2019 Moderate major depression 11/11/2016 Acute right-sided low back pain 10/29/2016 11/03/2019 Acute cystitis without hematuria 10/29/2016 11/03/2019 Vesicoureteral reflux 10/25/20162019 Acute pyelonephritis 10/25/2016 020 Urinary retention 06/18/2016 11/03/2019 Flank pain 06/18/2016 11/03/2019 Acute pyelonephritis 10/28/2015 020 Pyelonephritis 02/12/2013 11/03/2019 LFT elevation 02/12/2013 11/03/2019 Tachycardia 02/12/2013 11/03/2019 Asthma 01/03/2011 11/03/2019 Overview: Asthma Other specified screening(V28.89) 02/21/2010 02/12/2013 Normal delivery 10/29/2007 11/08/2008 Supervision of other normal 03/24/2007 02/12/2013 Mild episode of recurrent ma taryn depressive disorder 05/08/2006 11/03/2019 Overview: RECURR DEPR DISORD-MILD Supervision of normal first 02/24/2005 04/13/2007 Other convulsions 09/18/2004 11/03/2019 Overview: febrile Depressive disorder, not elsewhere classified 09/19/19 05 11/03/2019 Anxiety state, unspecified 09/18/2004 0 11/03/2019 Encounters Date Type Department Care Team Description 04/14/2023 4:00 PM PER DIEM [facility] [address] [facility] [address] [place] [address] Olivia Mccarty MBBS Telehealth (Virtual visit-no vitals taken. /); Weight (MWL-wegovy ) 04/14/2023 Travel 04/07/2023 Orders Only [facility] Scanner 1 scan: (1-Ord) INCOMING RECORDS-US, [facility], 04/07/2023 04/03/2023 11:00 AM PER DIEM [facility] [address] [facility] [address] [place] [address] Carol Painting, JOON Telehealth 04/03/2023 Travel 03/30/2023 Refill [facility] [address] [facility] [address] [place] [address] Olivia Mccarty MBBS Refill Request (Wegovy) 03/20/2023 Patient Outreach [address] [phone] Rhonda Garcia, STEEL MOLDER Follow up (Nausea/vomiting/intr actable headache/ED Risk 71%/03/20/2023); Primary RN Care Management (03/20/2023) 03/19/2023 10:36 PM PER DIEM - 03/20/2023 1:09 AM PER DIEM Emergency [facility] [address] [facility] [place] [address] Sunil Fox MD Nausea and vomiting in adult (Primary Dx); Acute nonintractable headache, unspecified headache type Discharge Disposition: Home Self Care 03/19/2023 Travel 03/18/2023 Refill [facility] Weight Management - [facility] [id number] [place] [address] [address] [place] [address] Olivia Mccarty MBBS Refill Request (Bd Polly 2nd Gen Pen Needle) 02/27/2023 Telephone [facility] Weight Management [facility] [id number] [place] [phone] Olivia Mccarty MBBS Prior Authorization (semaglutide, weight loss, (Wegovy) 1.7 mg/0.75 mL pen Approved 02/04/23-02/27/24) 02/24/2023 3:30 PM PER DIEM Telemedicine [facility] [address] [place] [phone] Olivia Mccarty MBBS Telehealth (Virtual visit-no vitals taken. /); Weight (MWL-saxenda ) 02/09/2023 Medical Messaging [address] [phone] Espinoza Montanez MD Referral request from Last 3 Months Immunizations Name Administration Dates Next Due COVID-19 vaccine (Moderna 100mcg/0.5mL) PF, MDV 08/30/2020,07/11/2020 DTaP 08/13/2000, 9,01/11/1998, 998 HIB PRP-OMP (PedvaxHIB) 10/09/1998,01/11/1998, Hepatitis B (Peds) 10/09/1998,12/13/1997, 998 Influenza Virus, Unspecified 01/15/2012,01/09/20 11 Influenza, IIV3 (Age >=3 years) 02/21/2010 Influenza, IIV4 08/08/2022(Deferred: - per pt req),01/21/2021,04/19/2019 MMR 10/09/1998 Oral Polio Vaccine 10/09/1998,01/11/1998, 998 Pneumococcal Poly,23-Valent (Pneumovax) 10/18/2012 Pneumococcal conj 7-Valent ( Prevnar 7) 08/13/2000 Td (Age >=7 Years) 01/21/2021,10/09/1998 Tdap 09/12/2010 Tuberculin (PPD) 10/02/2014 Varicella Vaccine 06/20/2009(Deferred: Contraindication - Had disease),10/09/1998 Family History Medical History Relation Name Comments Asthma Brother 1 Max Alcoholism Father Cancer Father brain, age 63 Psychiatric illness Father dep/anxi ety Cancer Maternal Aunt Thyroid Disease Maternal Aunt Cancer-breast Maternal Grandmother Hypertension Maternal Grandmother Anxiety disorder Mother Asthma Mother Cancer Mother cervical, ovari an, endometrial Depression Mother Hypertension Mother Obesity Mother Psychiatric illness Mother dep./anx iety Diabetes Paternal Grandfather Type 2 Hyperlipidemia Paternal Grandfather Hypertension Paternal Grandfather Diabetes Paternal Grandmother Type 2 Hyperlipidemia Paternal Grandmother Hypertension Paternal Grandmother Diabetes Paternal Uncle Type 2 Hypertension Paternal Uncle Anxiety disorder Sister 1 mellissa Asthma Sister 1 mellissa Depression Sister 1 mellissa Obesity Sister 1 mellissa Psychiatric illness Sister 1 mellissa dep/anxi ety Psychiatric illness Sister 2 Aysha Mental illness Sister 3 Joana Relation Name Status Comments Brother 1 Max Alive Brother 2 Alive Brother 3 Alive Brother 4 Alive Father Maternal Aunt Alive Maternal Grandfather Maternal Grandmother Alive Mother Alive Paternal Grandfather Paternal Grandmother Paternal Uncle Sister 1 mellissa Alive Sister 2 Aysha Alive Sister 3 Joana Alive Sister 4 Marly Alive Social History Tobacco Use Types Packs/Day Years Used Date Smoking Tobacco: Former Cigarettes 0.1 6 1 04/13/2003 - 02/11/2010 Smokeless Tobacco: Never Tobacco Cessation:Counseling Given: Yes Alcohol Use Standard Drinks/Week Comments Not Currently 0 (1 standard drink = 0.6 oz pur e alcohol) last time consumed 2016 PHQ-2 Answer Date Recorded PHQ-2 TOTAL SCORE 0 03/17/2022 Social Connections Answer Date Recorded Frequency of Communication with Friends and Fami ly 0 06/02/2022 Financial Resource Strain Answer Date R ecorded Difficulty of Paying Living Expenses 3 06/02/2022 Difficulty of Paying Living Expenses Not on file 06/02/2022 Food Insecurity Answer Date Recorded Worried About Running Out of Food in the Last Ye ar 1 06/02/2022 Transportation Needs Answer Date Record ed Lack of Transportation (Medical) 1 06/02/2022 Housing Stability Answer Date Recorded Unable to Pay for Housing in the Last Year 1 06/02/2022 Sex and Gender Information Value Date Recorded Sex Assigned at Female 04/12/2020 5:37 PM PER DIEM Gender Identity Female 04/12/2020 5:37 PM PER DIEM Sexual Orientation Bisexual 04/12/2020 5: 37 PM PER DIEM Obstetrics History Para Term AB IAB SAB Ectopic Multiple Livin g Live Births 2 2 2 0 0 0 0 0 0 2 2 Date Outcome GA Total Labor Labor/2nd/3rd Weight Sex Delivery Anes PTL Alondra A1 A5 Name Cl in 10/10 Term 40w 0d 23h 00m/ 3.06 kg (6 lb 12 oz) M Vag Epidu ral [facility] Location:[facility] Comments: wit h no GDM or labor; uncomplicated delivery of healthy boy 10/28 Term 4.45 kg (9 lb 13 oz) F Vag Epidu ral N Geovanna ng 8 9 Kourt annabelle Schoe l Delivery Location:[facility] Comments:macrosomic in keiry Last Filed Vital Signs Vital Sign Reading Time Taken Comments Blood Pressure 131/92 03/19/2023 10:35 PM PER DIEM Pulse 76 03/19/2023 10:35 PM PER DIEM Temperature 36.7 ??C (98.1 ??F) 03/19/2023 10:[address] Respiratory Rate 20 03/19/2023 10:35 PM PER DIEM Oxygen Saturation 97% 03/19/2023 10:35 PM PER DIEM Inhaled Oxygen Concentration - - Weight 89.4 kg (197 lb) 04/14/2023 3:00 PM PER DIEM Height 174 cm (5' 8.5) 04/14/2023 3:00 PM PER DIEM Body Mass Index 29.51 04/14/2023 3:00 PM PER DIEM Plan of Treatment Upcoming Encounters Date Type Department Care Team (Late st Contact Info) Description 06/09/2023 11:00 AM PER DIEM Telemedicine [facility] Weight Management - [facility] [address] [facility] [address] [place] [phone] Carol Painting, RD [address] [facility] [address] [place] [address] 06/23/2023 3:00 PM CDT Office Visit [facility] [place] [facility] [address] [place] [address] Ruddy Garcia MD [address] [place] [address] 07/06/2023 3:30 PM CDT Telemedicine [facility] Weight Management - [facility] [address] [facility] [address] [place] [phone] Olivia Mccarty MBBS [address] [facility] [address] [place] [address] Health Maintenance Due Date Last Done Comments COVID-19 vaccine series (2022- season) 2022 08/30/2020, 07/11/2020 Influenza for age 9-49 12/05/2022 , 04/19/2019, 01/15/2012, Additional history exists Depression screening for age 12+ 03/17/2023 03/17/2022, 01/21/2021, 02/17/2020, Additional history exists BMI (ht and wt on same day) for age 18+ 04/14/2024 04/14/2023, 04/03/2023, 02/24/2023, Additional history exists Pap test for age 21-65 06/03/2027 3, 06/03/2022, 11/03/2019, Additional history exists Tetanus booster 01/21/2031 01/21/2021, 12/2010, 10/09/1998 Tdap Completed 09/12/2010 Pneumococcal series for age 6-64 Aged Out 10/18/2012, 08/13/2000 No longer eligibl e based on patient's age to complete this topic HIV for age 15-65 Completed 08/22/2020, , 03/24/2007 Hepatitis C screening for age 18-79 Completed 08/22/2020 Procedures Procedure Name Priority Date/Time Associated Diagnosis Comments SCAN CORRESP-IMAGING 04/07/2023 12:00 AM PER DIEM LIPASE STAT 03/19/2023 11:15 PM PER DIEM HEPATIC FUNCTION PANEL STAT 03/19/2023 11:15 PM PER DIEM BASIC METABOLIC PANEL STAT 03/19/2023 11:15 PM PER DIEM CBC W PLT NO DIFF STAT 03/19/2023 11: 15 PM PER DIEM from Last 3 Months Results * SCAN CORRESP-IMAGING (04/07/2023 12:00 AM PER DIEM) Anatomical Region Laterality Modality Other Scanner OTHER * CBC W PLT NO DIFF (03/19/2023 11:15 PM PER DIEM) WHITE BLOOD COUNT 6.6 4.5 - 11.0 thou/cu mm 03/19/2023 11:32 PM PER DIEM [facility] RED BLOOD COUNT 4.80 4.00 - 5.20 mil/cu mm 03/19/2023 11:32 PM PER DIEM [facility] HEMOGLOBIN 13.9 12.0 - 16.0 g/dL 03/19/2023 11:32 PM PER DIEM [facility] HEMATOCRIT 42.6 33.0 - 51.0 % 03/19/2023 11:32 PM PER DIEM [facility] MCV 89 80 - 100 fL 03/19/2023 11:32 PM PER DIEM [facility] MCH 29.0 26.0 - 34.0 pg 03/19/2023 11:32 PM PER DIEM [facility] MCHC 32.6 32.0 - 36.0 g/dL 03/19/2023 11:32 PM PER DIEM [facility] RDW 14.2 11.5 - 15.5 % 03/19/2023 11:32 PM PER DIEM [facility] PLATELET COUNT 358 140 - 440 thou/cu mm 03/19/2023 11:32 PM PER DIEM [facility] MPV 10.7 6.5 - 11.0 fL 03/19/2023 11:32 PM PER DIEM [facility] Blood BLOOD SPECIMEN / Unknown Venipuncture / Unknown 03/19/2023 11:15 PM PER DIEM 03/19/2023 11:19 PM PER DIEM Sunil Fox MD HEMATOLOGY Performing Organization Address [facility]/ZIP Co de Phone Number [address] [address] * LIPASE (03/19/2023 11:15 PM PER DIEM) LIPASE 32.3 13.0 - 60.0 IU/L 03/19/2023 11:39 PM PER DIEM [facility] Blood BLOOD SPECIMEN / Unknown Venipuncture / Unknown 03/19/2023 11:15 PM PER DIEM 03/19/2023 11:19 PM PER DIEM Sunil Fox MD CHEMISTRY Performing Organization Address City/[facility] Co de Phone Number [address] [address] * (ABNORMAL) HEPATIC FUNCTION PANEL (03/19/2023 11:15 PM PER DIEM) ALBUMIN 4.8 4.0 - 4.9 g/dL 03/19/2023 11:39 PM PER DIEM [facility] PROTEIN,TOTAL 7.4 6.0 - 8.0 g/dL 03/19/2023 11:39 PM PER DIEM [facility] BILIRUBIN,TOTAL 0.6 0.0 - 1.2 mg/dL 03/19/2023 11:39 PM PER DIEM [facility] BILIRUBIN,DIRECT <0.2 0.0 - 0.3 mg/dL 03/19/2023 11:39 PM PER DIEM [facility] BILIRUBIN,INDIRE CT 03/19/2023 11:39 PM [facility] Comment:Unable to calculate, Direct Bili <0.2 ALK PHOSPHATASE 191(H) 35 - 104 IU/L 03/19/2023 11:39 PM [facility] ALT (SGPT) 87(H) 10 - 35 IU/L 03/19/2023 11:39 PM PER DIEM [facility] AST (SGOT) 29 10 - 35 IU/L 03/19/2023 11:39 PM [facility] Blood BLOOD SPECIMEN / Unknown Venipuncture / Unknown 03/19/2023 11:15 PM PER DIEM 03/19/2023 11:19 PM PER DIEM [place] [address] * (ABNORMAL) BASIC METABOLIC PANEL (03/19/2023 11:15 PM PER DIEM) SODIUM 141 136 - 145 mmol/L 03/19/2023 11:39 PM [facility] POTASSIUM 3.6 3.5 - 5.1 mmol/L 03/19/2023 11:39 PM [facility] CHLORIDE 105 98 - 107 mmol/L 03/19/2023 11:39 PM [facility] CO2,TOTAL 21(L) 22 - 29 mmol/L 03/19/2023 11:39 PM [facility] ANION GAP 15 5 - 18 03/19/2023 11:39 PM [facility] GLUCOSE 80 70 - 99 mg/dL 03/19/2023 11:39 PM [facility] CALCIUM 10.0 8.6 - 10.0 mg/dL 03/19/2023 11:39 PM [facility] BUN 14 6 - 20 mg/dL 03/19/2023 11:39 PM [facility] CREATININE 0.86 0.50 - 0.90 mg/dL 03/19/2023 11:39 PM [facility] BUN/CREAT RATIO 16 10 - 20 11:39 PM PER DIEM [facility] eGFR 90(L) >90 mL/min/1.7 3m2 03/19/2023 11:39 PM PER DIEM [facility] Comment:As of 2021, eG FR is calculated by the CKD-EPI creatinine equation without race adjustment. ??eGFR can be influenced by muscle mass, exercise, and diet. ??The reported eGFR is an estimation only and is only applicable if the renal function is stable. Blood BLOOD SPECIMEN / Unknown Venipuncture / Unknown 03/19/2023 11:15 PM PER DIEM 03/19/2023 11:19 PM PER DIEM Sunil Fox MD CHEMISTRY [place] [id number] [place] [address] from Last 3 Months Advance Directives Latest Code Status on File Code Status Date Activated Date Inactivated Comments Full Code 08/07/2022 12:36 AM 08/11/2022 6:40 PM Question Answer Comments Code Status Discussion: Reviewed Preferences Code Status History Code Status Date Activated Date Inactivated Comments Full Code 06/18/2016 2:03 AM 06/20/2016 7:37 PM Full Code 10/28/2015 10:32 PM 11/01/2015 6:50 PM Full Code 02/12/2013 3:32 PM 02/15/2013 4:30 PM Full Code 10/29/2007 4:48 AM 10/31/2007 3:48 PM Care Teams Solderer Relationship Specialty Start Date End Date Espinoza Montanez MD [address] [facility] [place] [address] PCP - General Family Practice 01/17/20 Flaca Miles PA [address] [facility] [place] [address] Consulting Physician Physician Circular Saw Filer 01/17/20 Tegan Freedman Psychiatry Psychiatry 01/17/20
--- OUTSIDE RECORDS SUMMARY | 2023-04-30 11:17 | XMS_ITS ---
Author Name Unknown Organization [facility] Address [address] [place] [address] Care Team Providers Care Senior [employer] Systems Programmer Name Role Phone Unavailable Unavailable Unavailable Surgery Details Not on file Complications Check Surgery Details section. Procedure Estimated Blood Loss Check Surgery Details section. Procedure Findings Check Surgery Details section. Procedure Specimens Taken Check Surgery Details section.
--- OUTSIDE RECORDS SUMMARY | 2023-04-30 11:17 | XMS_ITS | Encounter Summary ---
Author Name Unknown Organization [facility] Address [address], [place] [address] Care Team Providers Care Rn Otolaryngology Name Role Phone More Conde Primary Care Provider [phone] Encounter Details Date Type Department Care Team Description 12/09/2016 Consent for Procedure/Treatment [facility] Department RH CONSENT/ RELEASE Social History Tobacco Use Types Packs/Day Years Used Date Smoking Tobacco: Every Day Cigarettes Smokeless Tobacco: Never Alcohol Use Standard Drinks/Week Comments No 0 (1 standard drink = 0.6 oz pur e alcohol) 2 drinks per week Sex and Gender Information Value Date Recorded Sex Assigned at Not on file Gender Identity Not on file Sexual Orientation Not on file documented as of this encounter Plan of Treatment Not on file documented as of this encounter Visit Diagnoses Not on filedocumented in this encounter Care Teams Rn Otolaryngology Relationship Specialty Start Date End Date More Conde MBBS [address] [place] [id number] PCP - General Family Practice 07/19/19 documented as of this encounter
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
--- OUTSIDE RECORDS SUMMARY | 2023-04-30 11:17 | XMS_ITS | Clinical Summary ---
Author Name Unknown Organization [facility] Address [address] [place] [address] Care Team Providers Care Data Communications Engineer Name Role Phone More Conde Primary Care Provider [phone] Source Comments You are receiving this document as you are listed as the primary care provider,follow-up provider, or the patient has been referred to you for consultation.This is in compliance with the Medicare and[facility] EHR Incentive Program,which states Providers who transition their patient to another setting of careor provider of care or refers their patient to another provider of care shouldprovide summary care record for each transition of care or referral. [facility] Allergies Active Allergy Reactions Criticality Noted Date Comments Penicillins Breathing Difficulty,Hives High 12/16/2006 Pt has tolerated cephalosporins in the past Metoclopramide Other, see comments 10/21/2016 Reports dystonia Morphine And Related Hives High 10/21/2016 Medications Medication Sig Dispensed Refills Start Date End Date Status methyl salicylate-menthol (AKA ANALGESIC BALM) ointment Apply 1 Application topically three times a day as needed (lower back, sides). 410 g 1 10/27/2016 Active Additional Information Patient not taking.Reported on 01/30/2017 ondansetron (ZOFRAN-ODT) 8 MG disintegrating tablet Take 1 Tab by mouth every 8 hours as needed. 15 Tab 1 10/27/2016 Active Additional Information Patient not taking.Reported on 01/30/2017 tiZANidine (ZANAFLEX) 2 MG tablet Take 1-2 Tabs by mouth every 8 hours as needed. 60 Tab 1 10/27/2016 Active Additional Information Patient not taking.Reported on 08/10/2018 naproxen (NAPROSYN) 375 MG tabletIndications:Ba ck Pain Take 1 Tab by mouth two times daily as needed (Don't take more than 5 days in a row). Indications: Back Pain 60 Tab 11 10/29/2016 Active Additional Information Patient not taking.Reported on 08/10/2018 polyethylene glycol (MIRALAX) packetIndications:Co nstipation Take 1 Packet by mouth daily. Indications: Constipation 0 10/29/2016 Active Additional Information Patient not taking.Reported on 01/30/2017 sennosides-docusate sodium (SENNA-S,SENNA PLUS) 8.6-50 MG per tabletIndications:Co nstipation Take 2 Tabs by mouth two times daily as needed for Constipation. Indications: Constipation 0 10/29/2016 Active Additional Information Patient not taking.Reported on 08/10/2018 acetaminophen (TYLENOL) 500 MG tabletIndications:Pa in Take 2 Tabs by mouth two times daily as needed for Pain. Maximum acetaminophen dose is 4000 mg in 24 hours Indications: Pain 100 Tab 11 10/29/2016 Active Additional Information Patient not taking.Reported on 01/30/2017 ferrous sulfate 325 (65 FE) MG tablet Take 1 Tab by mouth two times a day with meals. 100 Tab 1 11/10/2016 Active Additional Information Patient not taking.Reported on 08/10/2018 rOPINIRole (REQUIP) 0.25 MG tablet TAKE 1 TABLET BY MOUTH EVERY EVENING. 60 Tab 0 01/07/2017 Active Additional Information Patient not taking.Reported on 08/10/2018 tiZANidine (ZANAFLEX) 4 MG tablet TAKE ONE TO ONE AND ONE-HALF TABLETS BY MOUTH EVERY 6 HOURS NEEDED. 60 Tab 0 01/27/2017 Active Additional Information Patient not taking.Reported on 08/10/2018 gabapentin (NEURONTIN) 400 MG capsuleIndications:B ack Pain Take 1 Cap by mouth three times a day. Indications: Back Pain 90 Cap 3 01/28/2017 Active Additional Information Patient not taking.Reported on 08/10/2018 prazosin (MINIPRESS) 5 MG capsuleIndications:n ight terror Take 1 Cap by mouth every evening. Indications: night terror 30 Cap 3 02/16/2017 Active oxyCODONE-acetaminop hen (PERCOCET) 5-325 MG tablet Take 1-2 Tabs by mouth every 4 hours as needed for Pain. 10 Tab 0 03/07/2017 Active Additional Information Patient not taking.Reported on 08/10/2018 tiZANidine (ZANAFLEX) 4 MG tablet TAKE ONE TO ONE AND ONE-HALF TABLETS BY MOUTH EVERY 6 HOURS NEEDED. 60 Tab 0 04/07/2017 Active Additional Information Patient not taking.Reported on 08/10/2018 mirtazapine (REMERON) 15 MG tablet Take 1 Tab by mouth daily at bedtime. 30 Tab 0 04/07/2017 Active Additional Information Patient not taking.Reported on 08/10/2018 oxyCODONE-acetaminop hen (PERCOCET) 5-325 MG tablet Take 1-2 Tabs by mouth every 4 hours as needed for Pain. 9 Tab 0 04/19/2017 Active Additional Information Patient not taking.Reported on 08/10/2018 ibuprofen (MOTRIN) 600 MG tablet Take 1 Tab by mouth every 6 hours as needed for Pain. 30 Tab 0 04/19/2017 Active Additional Information Patient not taking.Reported on 08/10/2018 DULoxetine (CYMBALTA) 20 MG capsuleIndications:P TSD (post-traumatic stress disorder) (HRC),Moderate major depression (HRC) Use 20 mg per day for one week, if tolerated increase to 20 mg twice a day 60 Capsule 1 08/10/2018 Active naltrexone 1mg/ml oral liquid TAKE 4ML BY MOUTH 1 HOUR BEFORE BED 120 mL 1 08/12/2019 Active cyclobenzaprine (FLEXERIL) 10 MG tablet Take 1 Tablet by mouth three times a day as needed for Muscle Spasms. 90 Tablet 1 08/12/2019 Active Active Problems Problem Noted Date Diagnosed Date CAREPLAN: Restriction 04/29/2017 Overview: This patient's Psychiatric care has been restricted. Please direct the patient to speak with the provider before scheduling. Methamphetamine use disorder , moderate, in sustained remission 01/30/2017 Weakness of both lower extremities 01/13/2017 Mid back pain 01/13/2017 Low back pain 01/13/2017 Bilateral leg pain 01/13/2017 Moderate major depression 11/11/2016 Chronic post-traumatic stress disorder 7 Major depressive disorder, recurrent episode, mo derate 11/11/2016 Smoker 11/10/2016 Acute cystitis without hematuria 10/29/2016 Acute right-sided low back pain 10/29/2016 PTSD (post-traumatic stress disorder) 10/29/2016 Chronic pain syndrome 10/26/2016 Non-intractable vomiting with nausea 10/26/2016 Vesicoureteral reflux 10/25/2016 Acute pyelonephritis 10/25/2016 Anxiety disorder 10/25/2016 Resolved Problems Problem Noted Date Diagnosed Date Resolved Date Recurrent UTI 10/25/2016 04/25/2017 Immunizations Name Administration Dates Next Due DTaP 08/13/2000, 9,01/11/1998,1997 HepB Ped/Adol (0-18 yrs) 10/09/1998,12/13/1997,0 08/10/1997 Hib (PedvaxHIB) 10/09/1998,01/11/1998,12/13/1997 IG (Immune Globulin) 05/26/2012,01/01/2012 IPV (Polio) 10/09/1998,01/11/1998,12/13/1997 Influenza IIV4 (Quadrivalent ) 0.5mL (77071) 02/21/2010 MMR 10/09/1998 PPSV23 (Pneumovax) 10/18/2012 Pneumococcal 7, PED 08/13/2000 Td (7+ yrs) 10/09/1998 Tdap 09/12/2010,09/12/2010 Varicella 10/09/1998 Family History Medical History Relation Name Comments Asthma Mother Cancer, Ovary Mother Thyroid Disorder Mother Diabetes, Type II Maternal Grandfather Diabetes, Type II Maternal Grandmother Relation Name Status Comments Mother Maternal Grandfather Maternal Grandmother Social History Tobacco Use Types Packs/Day Years Used Date Smoking Tobacco: Every Day Cigarettes Smokeless Tobacco: Never Alcohol Use Standard Drinks/Week Comments No 0 (1 standard drink = 0.6 oz pur e alcohol) Sex and Gender Information Value Date Recorded Sex Assigned at Not on file Gender Identity Not on file Sexual Orientation Not on file Last Filed Vital Signs Vital Sign Reading Time Taken Comments Blood Pressure 115/84 09/10/2018 10:53 AM CDT Pulse 85 09/10/2018 10:53 AM CDT Temperature 36.3 ??C (97.3 ??F) 08/10/2018 1:31 PM CD T Respiratory Rate 16 08/10/2018 1:31 PM CDT Oxygen Saturation 98% 04/19/2017 7:46 PM MARBLE CLEANER Inhaled Oxygen Concentration - - Weight 94.6 kg (208 lb 9.6 oz) 08/10/2018 1:31 P M CDT Height 172.5 cm (5' 7.91) 08/10/2018 1:31 PM CD T Body Mass Index 31.8 08/10/2018 1:31 PM CDT Plan of Treatment Health Maintenance Due Date Last Done Comments Cervical Cancer Screening Due 1986 COVID-19 Vaccine (#1) 1986 Pneumococcal (2 - PCV) 10/18/2013 10/18/2012, 2000 Adult Preventive Visit 08/10/2020 08/10/2018 DTaP/Tdap/Td (6 - Tdap) 09/12/2020 09/13/19 11, 09/12/2010, 08/13/2000, Additional history exists Influenza (#1) 2022 04/19/2019, 01/04, 01/08/2011, Additional history exists Zoster/Shingles (1 of 2) 2036 HepB Completed 10/09/1998, 12/1997, 08/10/1997 Hib Aged Out 10/09/1998, 11/1997, 12/13/1997 No longer eligible based on patient's age to complete this topic IPV (Polio) Completed 10/09/1998, 11/1997, 12/13/1997 HIV Screening (Preventive Services) Completed 08/10/2018 Hep C Screening (Preventive Services) Completed 08/10/2018, 11/10/2016 HPV Vaccine Aged Out No longer eligi ble based on patient's age to complete this topic HepA Aged Out No longer eligi ble based on patient's age to complete this topic MCV4 Aged Out No longer eligi ble based on patient's age to complete this topic Advance Directives Latest Code Status on File Code Status Date Activated Date Inactivated Comments Full Code 10/25/2016 3:03 PM 10/29/2016 6:45 PM Code Status History Code Status Date Activated Date Inactivated Comments Full Code 10/22/2016 6:06 AM 10/23/2016 3:44 PM Care Teams Data Communications Engineer Relationship Specialty Start Date End Date More Conde MBBS [address] [place] [id number] PCP - General Family Practice 07/19/19
--- OUTSIDE RECORDS SUMMARY | 2023-04-30 11:17 | XMS_ITS | Referral Summary ---
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 Hydrocodone-Acetaminop hen Hives 01/01/2007 Metoclopramide Anxiety,Other (See Comments) Low 09/08/2007 Reports dystonia Pt states becomes agitated and her body shakes. Morphine Hives High 10/21/2016 Penicillins Difficulty breathing,Hives,Sh ortness Of Breath High 09/18/2004 Pt has tolerated cephalosporins in the past Medications Medication Sig Dispensed Refills Start Date End Date Status magic mouthwash (ENTER INGREDIENTS IN COMMENTS) suspensionIndicati ons:Tooth pain Swish and spit 5-10 mLs in mouth every 6 hours as needed compound 30 ml Benadryl (12.5 mg/5 ml), 60 ml Maalox and 30 ml Viscous Lidocaine 120 mL 0 09/16/2018 Active clindamycin (CLEOCIN) 300 MG capsuleIndications :Right facial swelling,Dental caries Take 1 capsule (300 mg) by mouth 3 times daily 30 capsule 0 09/16/2018 Active NALTREXONE HCL PO 1 mg nightly and increase by 1 mg every 3 days until a target dose of 4 mg nightly. This should be taken approximately one hour before bed 0 09/10/2018 Active prazosin (MINIPRESS) 2 MG capsule Take 2 mg by mouth 0 06/17/2016 Active FLUoxetine (PROZAC) 20 MG capsule Take 1 capsule (20 mg) by mouth daily 0 09/20/2018 Active cyclobenzaprine (FLEXERIL) 10 MG tablet Take 1 tablet (10 mg) by mouth 3 times daily as needed for muscle spasms 0 09/20/2018 Active Active Problems Problem Noted Date Diagnosed Date Chronic lower back pain 10/30/2016 PTSD (post-traumatic stress disorder) 10/30/2016 Night terror 10/30/2016 Vesico-ureteral reflux 10/30/2016 H/O: substance abuse 10/30/2016 Anxiety 10/30/2016 Social History Tobacco Use Types Packs/Day Years Used Date Smoking Tobacco: Every Day Smokeless Tobacco: Never Sex and Gender Information Value Date Recorded Sex Assigned at Not on file Gender Identity Not on file Sexual Orientation Not on file Last Filed Vital Signs Vital Sign Reading Time Taken Comments Blood Pressure 123/80 09/19/2018 6:15 PM CDT Pulse 75 09/19/2018 6:15 PM CDT Temperature 36.6 ??C (97.8 ??F) 09/19/2018 6:15 PM CD T Respiratory Rate 16 09/19/2018 6:15 PM CDT Oxygen Saturation 100% 09/19/2018 6:15 PM CDT Inhaled Oxygen Concentration - - Weight 94.3 kg (208 lb) 09/19/2018 6:15 PM CDT Height 175.3 cm (5' 9) 10/30/2016 9:11 PM CDT Body Mass Index 30.72 10/30/2016 9:11 PM CDT Plan of Treatment Not on file Care Teams Behavioral Specialist Relationship Specialty Start Date End Date More Conde MD PCP - General Family Practice 09/19/18 No Ref-Primary, Physician 08/26/18
--- OUTSIDE RECORDS SUMMARY | 2023-04-30 11:17 | XMS_ITS | Referral Summary ---
Author Name Unknown Organization [facility] Address [address] [place] [address] Care Team Providers Care Mortgage Loan Assistant Name Role Phone Elsewhere, Pcp Primary Care Provider Unavailabl e Source Comments Patient records contain information from all sites at [facility]. For routine questions regarding patient records, call [phone] during business hours, M-F 8:00 AM - 5:00 PM Central Time. Record requests for emergency care only can be directed to [phone] at any time.[facility] Encounters Date Type Department Care Team Description 03/12/2023 2:15 PM OTHER WOOD PROCESSING MACHINE OPERATOR Virtual Visit Department of Obstetrics and Gynecology in [address] [address] Librado Blanton M.D. Bleeding Dysfunctional Uterine (Primary Dx) Discharge Disposition: Home or Self Care 02/19/2023 Clinical Communication Department of Obstetrics and Gynecology in [address] [address] Librado Blanton M.D. 02/19/2023 1:30 PM OTHER WOOD PROCESSING MACHINE OPERATOR Ancillary Procedure Department of Obstetrics and Gynecology in [address] [address] Librado Blanton M.D. Bleeding Dysfunctional Uterine 02/19/2023 1:15 PM OTHER WOOD PROCESSING MACHINE OPERATOR Comprehensive Visit Department of Obstetrics and Gynecology in [address] [address] Librado Blanton M.D. 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 Codeine Shortness of breath (Reselect Reaction) 07/13/2010 Converted from Generic Allergy: Apap/Codeine Hydrocodone Hives (Reselect Reaction),Shortness of breath (Reselect Reaction) 08/04/2010 Hydrocodone-Acetaminoph en Hives (Reselect Reaction) 01/01/2007 Metoclopramide Anxiety,Other (see comments),Shortness of breath (Reselect Reaction) Low 09/08/2007 Reports dystonia Reports dystonia Pt states becomes agitated and her body shakes. Penicillins Shortness of breath (Reselect Reaction) Low 11/17/2018 Metoclopramide Hcl GI intolerance Low 11/17/2018 Medications Medication Sig Dispensed Refills Start Date End Date Status ibuprofen (ADVIL,MOTRIN) 200 mg capsule Take 1 tablet by mouth 3 (three) times a day. 0 08/14/2012 Active cyclobenzaprine (FLEXERIL) 10 mg tablet Take 10 mg by mouth 3 (three) times a day as needed. 0 09/20/2018 Active naltrexone HCl (NALTREXONE ORAL) TAKE 4ML BY MOUTH 1 HOUR BEFORE BED 0 11/18/2018 Active naltrexone HCl, bulk, 100 % powder 1 mg nightly and increase by 1 mg every 3 days until a target dose of 4 mg nightly. This should be taken approximately one hour before bed 0 09/10/2018 Active desvenlafaxine (PRISTIQ) 50 mg 24 hr tablet Take 25 mg by mouth daily. 0 Active busPIRone (BUSPAR) 15 mg tablet Take 15 mg by mouth 2 (two) times a day. 0 Active ferrous gluconate (FERGON) 240 mg (27 mg iron) tablet Take 27 mg of iron by mouth daily. 0 Active ondansetron (ZOFRAN) 4 mg tablet Take 4 mg by mouth every 8 (eight) hours as needed for nausea or vomiting. 0 Active Active Problems Problem Noted Date Diagnosed Date Asthma NOS 01/03/2011 Overview: Asthma Depression Major Recurrent Mild 05/08/2006 Overview: RECURR DEPR DISORD-MILD Immunizations Name Administration Dates Next Due Influenza, Unspecified 01/15/2012,01/08/2011, MMR 10/11/1998 PPSV23 10/18/2012 Td (Adult), adsorbed 10/11/1998 Tdap 09/12/2010 Social History Tobacco Use Types Packs/Day Years Used Date Smoking Tobacco: Former Cigarettes 0.3 Smokeless Tobacco: Never Tobacco Cessation:Counseling Given: Not Answered Alcohol Use Standard Drinks/Week Comments Not Asked 0 (1 standard drink = 0.6 oz pur e alcohol) Humiliation, Afraid, Rape, and Kick questionnair e Answer Date Recorded Within the last year, have y ou been afraid of your partner or ex-partner? No 04/04/2022 Within the last year, have y ou been humiliated or emotionally abused in other ways by your partner or ex-partner? No Within the last year, have y ou been kicked, hit, slapped, or otherwise physically hurt by your partner or ex-partner? No 04/04/2022 Within the last year, have y ou been raped or forced to have any kind of sexual activity by your partner or ex-partner? No 04/04/2022 Social Connection and Isolat ion Panel [NHANES] Answer Date Recorded In a typical week, how many times do you talk on the phone with family, friends, or neighbors? More than three times a week 04/04/2022 How often do you get togethe r with friends or relatives? Three times a week 04/04/2022 How often do you attend [facility] or restoration services? More than 4 times per year 04/04/2022 Do you belong to any clubs o r organizations such as holiness groups, unions, fraternal or athletic groups, or school groups? Yes 04/04/2022 How often do you attend meet ings of the clubs or organizations you belong to? More than 4 times per year 04/04/2022 Are you , , di vorced, , never , or living with a partner? Living with partner 04/04/2022 AUDIT-C Answer Date Recorded Q1: How often do you have a drink containing alc ohol? Never 04/04/2022 Average Number of Drinks Not on file 022 Frequency of Binge Drinking Not on file 03/08 Overall Financial Resource Strain (CARDIA) Answe r Date Recorded How hard is it for you to pa y for the very basics like food, housing, medical care, and heating? Not very hard 04/04/2022 PHQ-2 Answer Date Recorded PHQ-2 Score 4 04/11/2019 [facility] - Occupational Stress Questionnaire Answer Date Recorded Do you feel stress - tense, restless, nervous, or anxious, or unable to sleep at night because your mind is troubled all the time - these days? To some extent 04/04/2022 Exercise Vital Sign Answer Date Recorde d On average, how many days pe r week do you engage in moderate to strenuous exercise (like a brisk walk)? 3 days 04/04/2022 On average, how many minutes do you engage in exercise at this level? 60 min 04/04/2022 Hunger Vital Sign Answer Date Recorded Within the past 12 months, y ou worried that your food would run out before you got the money to buy more. Sometimes true Within the past 12 months, t he food you bought just didn't last and you didn't have money to get more. Never true PRAPARE - Transportation Answer Date Re corded In the past 12 months, has l ack of transportation kept you from medical appointments or from getting medications? No 03/08 In the past 12 months, has l ack of transportation kept you from meetings, work, or from getting things needed for daily living? No 04/04/2022 Housing Stability Vital Sign Answer Colton e Recorded In the last 12 months, was t here a time when you were not able to pay the mortgage or rent on time? No 04/04/2022 In the last 12 months, how many places have you lived? 2 04/04/2022 In the last 12 months, was t here a time when you did not have a steady place to sleep or slept in a residential (including now)? No 04/04/2022 Depression Answer Date Recor ded PHQ-9 Total Score (max 27) 11 04/11 Nutrition Answer Date Recorded Nutrition: EVOO Fat Source Yes 04/04 On average, how many serving s of fruits and vegetables do you eat per day (serving size is equal to 1 cup or approximately the size of a tennis ball)? 2-3 04/04/2022 Dental Answer Date Recorded Dental: Regular Dentist Yes 04/04/20 Employment Answer Date Recorded Employment status Employed and actively working without restrictions 04/04/2022 Education Answer Date Recorded What is the highest level of school you have completed or the highest degree you have received? Some college, no degree 04/04/2022 Sex and Gender Information Value Date Recorded Sex Assigned at Female 08/02/2019 9:19 AM CDT Gender Identity Female 08/02/2019 9:19 AM CDT Sexual Orientation Bisexual 08/02/2019 9: 19 AM CDT Last Filed Vital Signs Vital Sign Reading Time Taken Comments Blood Pressure 118/84 02/19/2023 1:00 PM OTHER WOOD PROCESSING MACHINE OPERATOR Pulse 72 03/07/2019 7:42 AM OTHER WOOD PROCESSING MACHINE OPERATOR Temperature 36.4 ??C (97.5 ??F) 02/02/2019 2:12 PM CD T Respiratory Rate 18 01/19/2019 7:49 PM CDT Oxygen Saturation 99% 01/19/2019 11:00 PM CDT Inhaled Oxygen Concentration - - Weight 89.1 kg (196 lb 6.9 oz) 02/19/2023 1:00 P M OTHER WOOD PROCESSING MACHINE OPERATOR Height 176 cm (5' 9.29) 02/19/2023 1:00 PM OTHER WOOD PROCESSING MACHINE OPERATOR Body Mass Index 28.76 02/19/2023 1:00 PM OTHER WOOD PROCESSING MACHINE OPERATOR Plan of Treatment Not on file Procedures Procedure Name Priority Date/Time Associated Diagnosis Comments SURGICAL PATHOLOGY Routine 02/19/2023 1: 55 PM OTHER WOOD PROCESSING MACHINE OPERATOR Bleeding Dysfunctional Uterine US PELVIS TRANSVAGINAL RAD - Routine (most inpatients and all outpatients) 02/19/2023 1:41 PM OTHER WOOD PROCESSING MACHINE OPERATOR Bleeding Dysfunctional Uterine DC BX ENDOMETRIAL WO CERVIX DIL Routine 02/19/2023 1:15 PM OTHER WOOD PROCESSING MACHINE OPERATOR Bleeding Dysfunctional Uterine from Last 3 Months Results * Surgical Pathology (02/19/2023 1:55 PM OTHER WOOD PROCESSING MACHINE OPERATOR) 02/23/2023 9:52 AM OTHER WOOD PROCESSING MACHINE OPERATOR MKTO Report electronically signed by Aysha Mckeon MD 02/23/2023 9:52 AM OTHER WOOD PROCESSING MACHINE OPERATOR MKTO Specimen Received A. Endometrial biopsy 02/23/2023 9:52 AM OTHER WOOD PROCESSING MACHINE OPERATOR MKTO Clinical History Dysfunctional uterine bleeding 02/23/2023 9:52 AM OTHER WOOD PROCESSING MACHINE OPERATOR MKTO Gross Description Submitted as endometrium and consists of hemorrhagic [place]ingo tissues filtering to a loose 0.6 cm. ESB, one block. mpg/nm 02/23/2023 9:52 AM OTHER WOOD PROCESSING MACHINE OPERATOR MKTO Interpretation FINAL DIAGNOSIS Endometrium, biopsy: Inactive endometrium with decidualized stroma (exogenous progestational effect) with glandular and stromal breakdown. 02/23/2023 9:52 AM OTHER WOOD PROCESSING MACHINE OPERATOR MKTO Tissue 02/19/2023 1:55 PM OTHER WOOD PROCESSING MACHINE OPERATOR 02/20/2023 8:43 AM OTHER WOOD PROCESSING MACHINE OPERATOR Librado Blanton M.D. LAB SURG PATH ORDERA BLES [facility] [address] [place] [address], [facility] MKTO [address] [place] [address] * US Pelvis Transvaginal (02/19/2023 1:41 PM OTHER WOOD PROCESSING MACHINE OPERATOR) Anatomical Region Laterality Modality Pelvis, Ultrasound RST LOS, Ultrasound ARZ LOS, Ultrasound FLA LOS N/A Ultrasound 02/19/2023 1:48 PM OTHER WOOD PROCESSING MACHINE OPERATOR Impressions 02/19/2023 1:49 PM OTHER WOOD PROCESSING MACHINE OPERATOR Normal pelvic ultrasound Narrative 02/19/2023 1:49 PM OTHER WOOD PROCESSING MACHINE OPERATOR EXAM: US PELVIS TRANSVAGINAL COMPARISON: TECHNIQUE: Transvaginal. Transvaginal exam performed to better visualize the uterus and/or adnexal regions. FINDINGS: Uterus: 3.9 cm x 4.9 cm x 7.7 cm. Normal slides sign. Myometrium: Normal. Endometrium: Normal. Thickness: 7 mm Right ovary: Normal. ??2.52 x 2.40 x 2.02 2. ??Ovarian volume: 6 cc. Left ovary: Normal. ??2.09 x 2.20 x 1.61. ??Ovarian volume: 4 cc. Intraperitoneal Fluid: None. Procedure Note Librado Blanton M.D. - 02/19/2023 EXAM: US PELVIS TRANSVAGINAL COMPARISON: TECHNIQUE: Transvaginal. Transvaginal exam performed to better visualizethe uterus and/or adnexal regions. FINDINGS: Uterus: 3.9 cm x 4.9 cm x 7.7 cm. Normal slides sign. Myometrium: Normal. Endometrium: Normal. Thickness: 7 mm Right ovary: Normal. 2.52 x 2.40 x 2.02 2. Ovarian volume: 6 cc. Left ovary: Normal. 2.09 x 2.20 x 1.61. Ovarian volume: 4 cc. Intraperitoneal Fluid: None. IMPRESSION: Normal pelvic ultrasound Librado Blanton M.D. IMG US PROCEDURES * DC BX ENDOMETRIAL WO CERVIX DIL (02/19/2023 1:15 PM OTHER WOOD PROCESSING MACHINE OPERATOR) Narrative MMODAL - 02/19/2023 1:15 PM OTHER WOOD PROCESSING MACHINE OPERATOR Librdao Blanton M.D. ? 02/19/2023 ??1:52 PM Endometrial Sampling Performed by: Librado Blanton M.D. Authorized by: Librado Blanton M.D. ?? PROCEDURE DETAILS Cervix dilated: no ?? Single tooth tenaculum applied: no ?? Uterus sounded: no ?? Biopsy instrument: endosampler Specimen collected: yes ?? Number of endometrial biopsies: 1 Number of passes: 1 Specimen(s) sent to pathology: yes ?? CONSENT Consent obtained: verbal Consent given by: patient The benefits, risks and alternatives to the procedure and the potential need for sedation or anesthesia as well as the names, roles, and responsibilities of healthcare team members performing significant interventional tasks were discussed with the patient and/or decision maker. UNIVERSAL PROTOCOL All relevant documentation and testing were reviewed and available. All required blood products, implants, devices and or special equipment were made available as applicable. Pre-procedure verification was conducted and the correct site was marked if required. A fire risk assessment was done as applicable. The procedural time-out to verify correct patient, correct side/site, and procedure was conducted prior to performing the procedure and confirmed in a procedural pause. PRE-PROCEDURE DETAILS reasonably excluded based on: Previously sterilized. Indications: dysfunctional uterine bleeding Appropriate hand hygiene, gown, cap, mask, protective eyewear, sterile gloves, skin preparation, sterile drape, and strict aseptic technique were utilized as applicable for the procedure.: yes ?? Site preparation: povidone-iodine SEDATION / ANESTHESIA Anesthesia method: none POST-PROCEDURE DETAILS ?? Procedure completed successfully: yes ?? Complications: no apparent complications Librado Blanton M.D. OB GYNE ORDERABLES MMODAL NA from Last 3 Months Administered Medications Care Teams Mortgage Loan Assistant Relationship Specialty Start Date End Date Elsewhere, Pcp PCP - General Hydroelectric Plant Operator 03/18/19
--- OUTSIDE RECORDS SUMMARY | 2023-04-30 11:17 | XMS_ITS | Clinical Summary ---
Author Name Unknown Organization [facility] Address [address] [place] [address] Care Team Providers Care Gyroscopic Instrument Mechanic Name Role Phone Elsewhere, Pcp Primary Care Provider Unavailabl e Source Comments Patient records contain information from all sites at [facility]. For routine questions regarding patient records, call [phone] during business hours, M-F 8:00 AM - 5:00 PM Central Time. Record requests for emergency care only can be directed to [phone] at any time.[facility] Allergies Active Allergy Reactions Criticality Noted Date [...] Recurrent Mild 05/08/2006 Overview: RECURR DEPR DISORD-MILD Encounters Date Type Department Care Team Description 03/12/2023 2:15 PM MOTOR ASSEMBLER Virtual Visit Department of Obstetrics and Gynecology in [address] [phone] Librado Blanton M.D. Bleeding Dysfunctional Uterine (Primary Dx) Discharge Disposition: Home or Self Care 02/19/2023 1:30 PM MOTOR ASSEMBLER Ancillary Procedure Department of Obstetrics and Gynecology in [address] [address] Librado Blanton M.D. Bleeding Dysfunctional Uterine 02/19/2023 1:15 PM MOTOR ASSEMBLER Comprehensive Visit Department of Obstetrics and Gynecology in [address] [address] Librado Blanton M.D. Bleeding Dysfunctional Uterine (Primary Dx) Discharge Disposition: Home or Self Care 02/19/2023 Clinical Communication Department of Obstetrics and Gynecology in [address] [address] Librado Blanton M.D. from Last 3 Months Immunizations Name Administration Dates Next Due Influenza, Unspecified 01/15/2012,01/08/2011, MMR 10/11/1998 PPSV23 10/18/2012 Td (Adult), adsorbed 10/11/1998 Tdap 09/12/2010 Family History Medical History Relation Name Comments Alcohol abuse Father Emphysema Father COPD Grandfather paternal Hyperlipidemia Grandfather paternal Breast cancer Grandmother 1 maternal Hyperlipidemia Grandmother 2 paternal Asthma Mother Asthma Sister Relation Name Status Comments Father Grandfather paternal Grandmother 1 maternal Grandmother 2 paternal Mother Sister Social History Tobacco Use Types Packs/Day Years [...] week 04/04/2022 How often do you attend chur ch or hoahaoism services? More than 4 times per year 04/04/2022 Do you belong to any clubs o r organizations such as restorationism groups, unions, fraternal or athletic groups, or [...] Answer Date Recorded PHQ-2 Score 4 04/11/2019 [facility] - Occupational Stress Questionnaire Answer Date Recorded [...] place to sleep or slept in a fci (including now)? No 04/04/2022 Depression Answer Date [...] Comments Blood Pressure 118/84 02/19/2023 1:00 PM MOTOR ASSEMBLER Pulse 72 03/07/2019 7:42 AM MOTOR ASSEMBLER Temperature 36.4 ??C (97.5 ??F) 02/02/2019 2:12 PM CD T Respiratory Rate 18 01/19/2019 7:49 PM CDT Oxygen Saturation 99% 01/19/2019 11:00 PM CDT Inhaled Oxygen Concentration - - Weight 89.1 kg (196 lb 6.9 oz) 02/19/2023 1:00 P M MOTOR ASSEMBLER Height 176 cm (5' 9.29) 02/19/2023 1:00 PM MOTOR ASSEMBLER Body Mass Index 28.76 02/19/2023 1:00 PM MOTOR ASSEMBLER Plan of Treatment Health Maintenance Due Date Last Done Comments Depression Monitoring (PHQ-9) 1986 Hepatitis B Vaccines (1 of 3 - 3-dose series) 1986 Pneumococcal vaccine (0-64 years) (2 of 2 - PCV) 10/18/2013 10/18/2012, 08/13/2000 Cervical Cancer Screening 12/30/2014 12/31/2011 Asthma Action Plan 11/17/2018 Asthma Control Test Questionnaire 11/17/2018 COVID-19 Vaccine (3 - 2023-24 season) 2022 08/30/2020, 07/11/2020 Influenza Vaccine (#1) 2023 , 04/19/2019, 01/15/2012, Additional history exists Lipid (Cholesterol) Screening 02/08/2025 02/09/2020 DTaP,Tdap,and Td Vaccines (6 - Td or Tdap) 01/21/2031 01/21/2021, 09/12/2010, 08/13/2000, Additional history exists Hepatitis C Screening Completed 07/27/2012 HIV Screening Completed 07/29/2012, 07/06, 01/15/2012 Glucose Test for Med Monitoring Discontinued 03/19/2023, 08/06/2022, 08/04/2022, Additional history exists HPV Vaccines Aged Out No longer eligi ble based on patient's age to complete this topic Procedures Procedure Name Priority Date/Time Associated Diagnosis Comments SURGICAL PATHOLOGY Routine 02/19/2023 1: 55 PM MOTOR ASSEMBLER Bleeding Dysfunctional Uterine US PELVIS TRANSVAGINAL RAD - Routine (most inpatients and all outpatients) 02/19/2023 1:41 PM MOTOR ASSEMBLER Bleeding Dysfunctional Uterine OR BX ENDOMETRIAL WO CERVIX DIL Routine 02/19/2023 1:15 PM MOTOR ASSEMBLER Bleeding Dysfunctional Uterine from Last 3 Months Results * Surgical Pathology (02/19/2023 1:55 PM MOTOR ASSEMBLER) 02/23/2023 9:52 AM MOTOR ASSEMBLER MKTO Report electronically signed by Aysha Mckeon MD 02/23/2023 9:52 AM MOTOR ASSEMBLER MKTO Specimen Received A. Endometrial biopsy 02/23/2023 9:52 AM MOTOR ASSEMBLER MKTO Clinical History Dysfunctional uterine bleeding 02/23/2023 9:52 AM MOTOR ASSEMBLER MKTO Gross Description Submitted as endometrium and consists of hemorrhagic domingo tissues filtering to a loose 0.6 cm. ESB, one block. mpg/nm 02/23/2023 9:52 AM MOTOR ASSEMBLER MKTO Interpretation FINAL DIAGNOSIS Endometrium, biopsy: Inactive endometrium with decidualized stroma (exogenous progestational effect) with glandular and stromal breakdown. 02/23/2023 9:52 AM MOTOR ASSEMBLER MKTO Tissue 02/19/2023 1:55 PM MOTOR ASSEMBLER 02/20/2023 8:43 AM MOTOR ASSEMBLER Librado Blanton M.D. LAB SURG PATH ORDERA BLES [facility] [address] [place] [address], [facility] MKTO [address] [facility] [address] [place] [address] * US Pelvis Transvaginal (02/19/2023 1:41 PM MOTOR ASSEMBLER) Anatomical Region Laterality Modality Pelvis, Ultrasound RST LOS, Ultrasound ARZ LOS, Ultrasound FLA LOS N/A Ultrasound 02/19/2023 1:48 PM MOTOR ASSEMBLER Impressions 02/19/2023 1:49 PM MOTOR ASSEMBLER Normal pelvic ultrasound Narrative 02/19/2023 1:49 PM MOTOR ASSEMBLER EXAM: US PELVIS TRANSVAGINAL COMPARISON: TECHNIQUE: Transvaginal. [...] Librado Blanton M.D. IMG US PROCEDURES * OR BX ENDOMETRIAL WO CERVIX DIL (02/19/2023 1:15 PM MOTOR ASSEMBLER) Narrative MMODAL - 02/19/2023 1:15 PM MOTOR ASSEMBLER Librado Blanton M.D. ? 02/19/2023 ??1:52 PM Endometrial [...] ORDERABLES MMODAL NA from Last 3 Months Care Teams Gyroscopic Instrument Mechanic Relationship Specialty Start Date End Date Elsewhere, Pcp PCP - General Geriatric Social Work Professor 03/18/19
--- OUTSIDE RECORDS SUMMARY | 2023-04-30 11:17 | XMS_ITS | Clinical Summary ---
Author Name Unknown Organization [facility] Address [address] [place] [address] Care Team Providers Care Color Laboratory Technician Name Role Phone No Ref-Primary, Physician Unavailable [phone] More Conde MD Primary Care Provider [phone] Allergies Active Allergy Reactions Criticality Noted Date [...] 10/30/2016 H/O: substance abuse 10/30/2016 Anxiety 10/30/2016 Family History Medical History Relation Comments Diabetes Type 2 Maternal Grandfather Diabetes Type 2 Maternal Grandmother Asthma Mother Ovarian Cancer Mother Thyroid Disease Mother Relation Status Comments Maternal Grandfather Maternal Grandmother Mother Social History Tobacco Use Types Packs/Day Years [...] of Treatment Not on file Care Teams Color Laboratory Technician Relationship Specialty Start Date End Date More Conde MD PCP - General Family Practice 09/19/18 No Ref-Primary, Physician 08/26/18
--- OUTSIDE RECORDS SUMMARY | 2023-04-30 11:17 | XMS_ITS | Encounter Summary ---
Author Name Unknown Organization [facility] Address [address], [place] [address] Care Team Providers Care Access Control Officer Name Role Phone More Conde Primary Care Provider [phone] Encounter Details Date Type Department Care Team Description 11/07/2016 Correspondence None No Primary/Referring, Phy NEW PATIENT Social History Tobacco Use Types Packs/Day Years Used Date Smoking Tobacco: Every Day Cigarettes Alcohol Use Standard Drinks/Week Comments No 0 [...] on filedocumented in this encounter Care Teams Access Control Officer Relationship Specialty Start Date End Date More Codne MBBS [address] [place] [id number] PCP - General Family Practice 07/19/19 documented as of this encounter
--- OUTSIDE RECORDS SUMMARY | 2023-04-30 11:18 | XMS_ITS | Encounter Summary ---
Author Name Unknown Organization [facility] Address [address] [place] [address] Care Team Providers Care Event Designer Name Role Phone Elsewhere, Pcp Primary Care Provider Unavailabl e Reason for Visit * Appointment Request (Routine) - Closed Specialty Diagnoses / Procedures Referred By Dionte t Referred To Contact Obstetrics and Gynecology Referral ID Status Reason Start Date Expiration Date Visits Re quested Visits Authorized [id number] Closed 03/06/2023 03/05/2024 1 1 Encounter Details Date Type Department Care Team (Latest Contact Info) Description 03/12/2023 2:15 PM AUDIT OFFICER Virtual Visit Department of Obstetrics and Gynecology in [address] [phone] Librado Blanton M.D. [address] [place] [phone] Bleeding Dysfunctional Uterine (Primary Dx) Discharge Disposition: Home or Self Care Social History Tobacco Use Types Packs/Day Years Used Date Smoking Tobacco: Former Cigarettes 0.3 Smokeless Tobacco: Never Alcohol Use Standard Drinks/Week Comments Not Asked [...] often do you attend chur ch or adventism services? More than 4 times per year 04/04/2022 Do you belong to any clubs o r organizations such as mosque groups, unions, fraternal or athletic groups, or [...] Answer Date Recorded PHQ-2 Score 4 04/11/2019 [facility] of Occupat ional Health [...] place to sleep or slept in a group home (including now)? No 04/04/2022 Depression Answer Date [...] Orientation Bisexual 08/02/2019 9: 19 AM CDT documented as of this encounter Progress Notes * Librado Blanton M.D. - 03/12/2023 2:15 PM CST Patient seen previously by me in consultation in February of this year for dysfunctional uterine bleeding. She has a history of prior surgical sterilization. She has had ongoing unscheduled bleeding after having used multiple types of hormonal menstrual suppression. A transvaginal ultrasound as well as endometrial biopsy were both normal. Discussion at the time of assessment included options for hormonal IUD versus an endometrial ablation versus a total hysterectomy. Patient originally requested a total hysterectomy, however calls back today to ask questions about a potential endometrial ablation. She states that she was sure at the time of her prior surgical sterilization that she did not desire more children though now she is not 100% sure. Understands that she may require IVF for a future . She had questions about whether or not she could have an IVF after an endometrial ablation. I discussed that this would be high-risk and not recommended. Given that she is not 100% sure that she does not want the ability to have future fertility, I am not recommending that she undergo any surgical management of her dysfunctional bleeding at thistime. Patient agrees with recommendations and will return with any future concerns. Pelvic ultrasound FINDINGS: Uterus: 3.9 cm x 4.9 cm x 7.7 cm. Normal slides sign. Myometrium: Normal. Endometrium: Normal. Thickness: 7 mm Right ovary: Normal. 2.52 x 2.40 x 2.02 2. Ovarian volume: 6 cc. Left ovary: Normal. 2.09 x 2.20 x 1.61. Ovarian volume: 4 cc. Intraperitoneal Fluid: None. IMPRESSION: Normal pelvic ultrasound Endometrial biopsy FINAL DIAGNOSIS Endometrium, biopsy: Inactive endometrium with decidualized stroma (exogenous progestational effect) with glandular and stromal breakdown. T OFFICER documented in this encounter Plan of Treatment Not on file documented as of this encounter Visit Diagnoses Diagnosis Bleeding Dysfunctional Uterine- Primary documented in this encounter Additional Health Concerns Assessment Noted Time PHQ-9 Depression Total Score: 11 020 4:00 PM AUDIT OFFICER documented as of this encounter Care Teams Event Designer Relationship Specialty Start Date End Date Elsewhere, Pcp PCP - General Director Hardware 03/18/19 documented as of this encounter
--- OUTSIDE RECORDS SUMMARY | 2023-04-30 11:18 | XMS_ITS | Encounter Summary ---
Author Name Unknown Organization [facility] Address [address] [place] [address] Care Team Providers Care Pattern Cutter Name Role Phone Elsewhere, Pcp Primary Care Provider Unavailabl e Encounter Details Date Type Department Care Team (Late st Contact Info) Description 02/19/2023 Clinical Communication Department of Obstetrics and Gynecology in [place], [place] [address] [place] [phone] Librado Blanton M.D. [address] [place] [phone] Social History Tobacco Use Types Packs/Day Years [...] often do you attend chur ch or quaker services? More than 4 times per year 04/04/2022 Do you belong to any clubs o r organizations such as sabianist groups, unions, fraternal or athletic groups, or [...] Answer Date Recorded PHQ-2 Score 4 04/11/2019 [facility] of Occupat ional Health - Occupational Stress [...] place to sleep or slept in a long term (including now)? No 04/04/2022 Depression Answer Date [...] AM CDT documented as of this encounter Miscellaneous Notes * Telephone Encounter - Elayne Lynne L.PSivaN. - 02/19/2023 2:02 PM CNA [facility]NA [facility] Surgery Clinic Checklist Patient Contact Number: [phone] Surgeon: Franny Surgical Service: (_) Orthopedics (_) General surgery (_) Ophthalmology (_) Podiatry (_) ENT (_) Urology (X) OB / Gynecology (_) Other Date of Surgery: 04/03/23 Place of Surgery: [place] Procedure (as written on Consent): total laparoscopic hysterectomy, bilateral salpingectomy Right, Left, Bilateral, N/A: Diagnosis (reason for surgery): AUB, prior sterilization ICD-10: n93.8 CPT: 68835 GNA documented in this encounter Plan of Treatment Not on file documented as of this encounter Visit Diagnoses Not on filedocumented in this encounter Additional Health Concerns Assessment Noted Time PHQ-9 Depression Total Score: 11 020 4:00 PM CNA GNA documented as of this encounter Care Teams Pattern Cutter Relationship Specialty Start Date End Date Elsewhere, Pcp PCP - General Safety Sealer 03/18/19 documented as of this encounter
--- OUTSIDE RECORDS SUMMARY | 2023-04-30 11:18 | XMS_ITS | Encounter Summary ---
Author Name Unknown Organization [facility] Address [address] [place] [address] Care Team Providers Care Glass Block Installer Name Role Phone Elsewhere, Pcp Primary Care Provider Unavailabl e Reason for Referral * Outpatient (Routine) - Authorized Specialty Diagnoses / Procedures Referred By Contac t Referred To Contact Diagnoses Bleeding Dysfunctional Uterine Procedures Endometrial Sampling Librado Blanton M.D. [address] [place] [phone] [facility] Referral ID Status Reason Start Date Expiration Date V isits Requested Visits Authorized [id number] Authorized 02/19/2023 02/19/2024 1 1 YSIS CHIEF EQUIPMENT TECHNICIAN * Outpatient (Routine) - Closed Specialty Diagnoses / Procedures Referred By Contac t Referred To Contact Diagnoses Bleeding Dysfunctional Uterine Procedures US Pelvis Transvaginal Librado Blanton M.D. [address] [place] [phone] [facility] Referral ID Status Reason Start Date Expiration Date Visits Re quested Visits Authorized [id number] Closed 02/19/2023 02/19/2024 1 1 YSIS CHIEF EQUIPMENT TECHNICIAN Reason for Visit * Reason Comments Menorrhagia * Appointment Request (Routine) - Closed Specialty Diagnoses / Procedures Referred By Contac t Referred To Contact Obstetrics and Gynecology Diagnoses Menometrorrhagia Espinoza Montanez M.D. [address] [place] [phone] Referral ID Status Reason Start Date Expiration Date Visits Re quested Visits Authorized [id number] Closed 02/12/2023 02/12/2024 1 1 Encounter Details Date Type Department Care Team (Latest Contact Info) Description 02/19/2023 1:15 PM DIALYSIS CHIEF EQUIPMENT TECHNICIAN Comprehensive Visit Department of Obstetrics and Gynecology in [address] [phone] Librado Blanton M.D. [address] [place] [phone] Bleeding Dysfunctional Uterine (Primary Dx) Discharge Disposition: [...] 04/04/2022 How often do you attend [facility] or lutheran services? More than 4 times per year 04/04/2022 Do you belong to any clubs o r organizations such as latter-day groups, unions, fraternal or athletic groups, or [...] Answer Date Recorded PHQ-2 Score 4 04/11/2019 [facility] of Occupat ional Health - Occupational Stress [...] place to sleep or slept in a senior living (including now)? No 04/04/2022 Depression Answer Date [...] AM CDT documented as of this encounter Last Filed Vital Signs Vital Sign Reading Time Taken Comments Blood Pressure 118/84 02/19/2023 1:00 PM DIALYSIS CHIEF EQUIPMENT TECHNICIAN Pulse - - Temperature - - Respiratory Rate - - Oxygen Saturation - - Inhaled Oxygen Concentration - - Weight 89.1 kg (196 lb 6.9 oz) 02/19/2023 1:00 P M DIALYSIS CHIEF EQUIPMENT TECHNICIAN Height 176 cm (5' 9.29) 02/19/2023 1:00 PM DIALYSIS CHIEF EQUIPMENT TECHNICIAN Body Mass Index 28.76 02/19/2023 1:00 PM DIALYSIS CHIEF EQUIPMENT TECHNICIAN documented in this encounter Progress Notes * Librado Blanton M.D. - 02/19/2023 1:15 PM CST Consult note, requested by Espinoza Montanez SUBJECTIVE Chief complaint Chief Complaint Patient presents with Menorrhagia History of present illness Liudmila Rodríguez is a 37 y.o. P4 who presents for dysfunctional uterine bleeding. Patient underwent surgical sterilization at the time of her last section, has been using Depo-Provera morerecently for hormonal menstrual suppression which has not been effective, continues to have prolonged episodes of bleeding which is severely distressing to her. It has also been interrupting with hersex life. She has also tried OCPs and the contraceptive ring without adequate menstrual suppression. Strongly desires surgical management. Overall healthy young woman, she does have a substance abusehistory though has been sober for 4 years and now works an addiction counseling. OB history: P4004, status post x2, x2. Gyro Compass Tester history: Patient's last menstrual period was 02/15/2023.. Menses as above Last pap NIL, HPV negative, May 2022 STI: gonorrhea control: Surgical sterilization Medical history No past medical history on file. Surgical history Past Surgical History: Procedure Laterality Date BILATERAL TUBAL LIGATION N/A 08/12/2012 Bilateral tubal ligation SECTION N/A 09/09/2010 section SECTION N/A 08/12/2012 section Family history Family History Problem Relation Age of Onset Alcohol abuse Father Asthma Mother COPD Grandfather Hyperlipidemia Grandmother Emphysema Father Breast cancer Grandmother Asthma Sister Hyperlipidemia Grandfather Social history Social History Socioeconomic History Marital status: Single Highest education level: Some college, no degree Tobacco Use Smoking status: Former Packs/day: .25 Types: Cigarettes Smokeless tobacco: Never Substance and Sexual Activity Drug use: Not Currently Sexual activity: Defer Social Determinants of Health Financial Resource Strain: Low Risk (04/04/2022) Overall Financial Resource Strain (CARDIA) Difficulty of Paying Living Expenses: Not very hard Food Insecurity: Food Insecurity Present (04/04/2022) Hunger Vital Sign Worried About Running Out of Food in the Last Year: Sometimes true Ran Out of Food in the Last Year: Never true Transportation Needs: No Transportation Needs (04/04/2022) PRAPARE - Transportation Lack of Transportation (Medical): No Lack of Transportation (Non-Medical): No Physical Activity: Sufficiently Active (04/04/2022) Exercise Vital Sign Days of Exercise per Week: 3 days Minutes of Exercise per Session: 60 min Intimate Partner Violence: Not At Risk (04/04/2022) Humiliation, Afraid, Rape, and Kick questionnaire Fear of Current or Ex-Partner: No Emotionally Abused: No Physically Abused: No Sexually Abused: No Housing Stability: Low Risk (04/04/2022) Housing Stability Vital Sign Unable to Pay for Housing in the Last Year: No Number of Places Lived in the Last Year: 2 Unstable Housing in the Last Year: No Allergies Blood-group specific substance, Codeine, Hydrocodone, Hydrocodone-acetaminophen, Metoclopramide, Penicillins, and Reglan [metoclopramide hcl] Medications Current Outpatient Medications Medication Sig Dispense Refill cyclobenzaprine (FLEXERIL) 10 mg tablet Take 10 mg by mouth 3 (three) times a day as needed. busPIRone (BUSPAR) 15 mg tablet Take 15 mg by mouth 2 (two) times a day. desvenlafaxine (PRISTIQ) 50 mg 24 hr tablet Take 25 mg by mouth daily. docusate sodium (COLACE) 100 mg capsule Take 1 capsule (100 mg total) by mouth daily. Hold for loose stools (Patient not taking: Reported on 02/19/2023) 90 capsule 3 ferrous gluconate (FERGON) 240 mg (27 mg iron) tablet Take 27 mg of iron by mouth daily. ibuprofen (ADVIL,MOTRIN) 200 mg capsule Take 1 tablet by mouth 3 (three) times a day. naltrexone (DEPADE) 50 mg tablet TK 1 ML PO HS AND INCREASE BY 1 ML PO Q 3 DAYS UNTIL TO 4 ML PO HS. TK 1 HOUR BEFORE BEDTIME 1 naltrexone HCl (NALTREXONE ORAL) TAKE 4ML BY MOUTH 1 HOUR BEFORE BED naltrexone HCl, bulk, 100 % powder 1 mg nightly and increase by 1 mg every 3 days until a target dose of 4 mg nightly. This should be taken approximately one hour before bed MARI, 28, 3-0.02 mg per tablet 2 ondansetron (ZOFRAN) 4 mg tablet Take 4 mg by mouth every 8 (eight) hours as needed for nausea or vomiting. prazosin (MINIPRESS) 2 mg capsule Take 2 mg by mouth at bedtime. 0 prazosin (MINIPRESS) 5 mg capsule Take 5 mg by mouth at bedtime. QUEtiapine (SEROquel) 100 mg tablet Take 100 mg by mouth at bedtime. No current facility-administered medications for this visit. OBJECTIVE Physical exam Vitals: 02/19/23 1300 BP: 118/84 BP Location: Right arm Patient Position: Sitting Cuff Size: Regular Weight: 89.1 kg Height: 176 cm Body mass index is 28.76 kg/m??. General: Alert, oriented, appropriately interactive, in no acute distress. Cardiovascular: Regular rate Respiratory: Good effort, without distress. Abdomen: Soft, nontender, nondistended. No masses. Perineum: No lesions. Normal appearing external genitalia, Bartholin glands, urethra, and Moody's glands. Vagina: No masses or lesions. No discharge, normally rugated. Cervix: No masses or lesions. No discharge. Anus: Appears normal. Bimanual Exam: Nontender pelvic floor muscles. Urethra: Nontender. Bladder: Nontender, without massess, well supported. Uterus: Midline, anteverted, small, mobile. No masses, nontender. Adnexa: No masses or tenderness appreciated. No cervical motion tenderness. Musculoskeletal: Normal gait. Symmetric movements of upper extremities and lower extremities. Lower Extremities: Nontender, no edema. Labs: No results found for this or any previous visit (from the past 72 hour(s)). Imaging: Uterus: 3.9 cm x 4.9 cm x 7.7 cm. Normal slides sign. Myometrium: Normal. Endometrium: Normal. Thickness: 7 mm Right ovary: Normal. 2.52 x 2.40 x 2.02 2. Ovarian volume: 6 cc. Left ovary: Normal. 2.09 x 2.20 x 1.61. Ovarian volume: 4 cc. Intraperitoneal Fluid: None. IMPRESSION: Normal pelvic ultrasound The following portions of the patient's history were reviewed and updated as appropriate: allergies, current medications, family history, medical history, social history, surgical history, and problem list. ASSESSMENT / PLAN Liudmila Rodríguez is a 37 y.o. P4, previously sterilized, who presents with ongoing dysfunctional uterine bleeding, not significantly improved following three attempts at menstrual hormonal suppression. Currently using Depo-Provera and has ongoing bleeding. Two prior deliveries, no other pelvic surgery history. Normal transvaginal ultrasound today, endometrial biopsy collected. Reviewed options including a further trial of hormonal menstrual suppression, particularly a hormonal IUD, also reviewed surgical management with either an endometrial ablation or a total hysterectomy. Risk benefit analysis, effectiveness, recovery, and expectations were all reviewed in detail today. Patient strongly desires to move forward with a total hysterectomy for definitive management. Risks of the surgery reviewed in detail. I am recommending a total laparoscopic hysterectomy, bilateralsalpingectomy. Surgery request has been scheduled and consent has been signed. 1. Bleeding Dysfunctional Uterine - US Pelvis Transvaginal; Future - Surgical Pathology - Endometrial Sampling Librado Blanton M.D. 02/19/2023 1:12 PM DIALYSIS CHIEF EQUIPMENT TECHNICIAN YSIS CHIEF EQUIPMENT TECHNICIAN documented in this encounter Procedure Notes * Librado Blanton M.D. - 02/19/2023 1:15 PM CSTAssociated Order(s): Endometrial Sampling Post-Procedure Diagnose(s): Bleeding Dysfunctional Uterine Endometrial Sampling Performed by: Librado Blanton M.D. Authorized by: Librado Blanton M.D. PROCEDURE DETAILS Cervix dilated: no Single tooth tenaculum applied: no Uterus sounded: no Biopsy instrument: endosampler Specimen collected: yes Number of endometrial biopsies: 1 Number of passes: 1 Specimen(s) sent to pathology: yes CONSENT Consent obtained: verbal Consent given by: [...] utilized as applicable for the procedure.: yes Site preparation: povidone-iodine SEDATION / ANESTHESIA Anesthesia method: none POST-PROCEDURE DETAILS Procedure completed successfully: yes Complications: no apparent complications BOILER ROOM OPERATOR YSIS CHIEF EQUIPMENT TECHNICIAN documented in this encounter Plan of Treatment Not on file documented as of this encounter Procedures Procedure Name Priority Date/Time Associated Diagnosis Comments SURGICAL PATHOLOGY Routine 02/19/2023 1: 55 PM DIALYSIS CHIEF EQUIPMENT TECHNICIAN Bleeding Dysfunctional Uterine TN BX ENDOMETRIAL WO CERVIX DIL Routine 02/19/2023 1:15 PM DIALYSIS CHIEF EQUIPMENT TECHNICIAN Bleeding Dysfunctional Uterine documented in this encounter Results * Surgical Pathology (02/19/2023 1:55 PM DIALYSIS CHIEF EQUIPMENT TECHNICIAN) 02/23/2023 9:52 AM DIALYSIS CHIEF EQUIPMENT TECHNICIAN MKTO Report electronically signed by Aysha Mckeon MD 02/23/2023 9:52 AM DIALYSIS CHIEF EQUIPMENT TECHNICIAN MKTO Specimen Received A. Endometrial biopsy 02/23/2023 9:52 AM DIALYSIS CHIEF EQUIPMENT TECHNICIAN MKTO Clinical History Dysfunctional uterine bleeding 02/23/2023 9:52 AM DIALYSIS CHIEF EQUIPMENT TECHNICIAN MKTO Gross Description Submitted as endometrium and consists of hemorrhagic domingo tissues filtering to a loose 0.6 cm. ESB, one block. mpg/nm 02/23/2023 9:52 AM DIALYSIS CHIEF EQUIPMENT TECHNICIAN MKTO Interpretation FINAL DIAGNOSIS Endometrium, biopsy: Inactive endometrium with decidualized stroma (exogenous progestational effect) with glandular and stromal breakdown. 02/23/2023 9:52 AM DIALYSIS CHIEF EQUIPMENT TECHNICIAN MKTO Tissue 02/19/2023 1:55 PM DIALYSIS CHIEF EQUIPMENT TECHNICIAN 02/20/2023 8:43 AM DIALYSIS CHIEF EQUIPMENT TECHNICIAN Librado Blanton M.D. LAB SURG PATH [facility] [address] [place] [address], [facility]TO [facility] [place] [address] * US Pelvis Transvaginal (02/19/2023 1:41 PM DIALYSIS CHIEF EQUIPMENT TECHNICIAN) Anatomical Region Laterality Modality Pelvis, Ultrasound RST LOS, Ultrasound ARZ LOS, Ultrasound FLA LOS N/A Ultrasound 02/19/2023 1:48 PM DIALYSIS CHIEF EQUIPMENT TECHNICIAN Impressions 02/19/2023 1:49 PM DIALYSIS CHIEF EQUIPMENT TECHNICIAN Normal pelvic ultrasound Narrative 02/19/2023 1:49 PM DIALYSIS CHIEF EQUIPMENT TECHNICIAN EXAM: US PELVIS TRANSVAGINAL COMPARISON: TECHNIQUE: Transvaginal. [...] Librado Blanton M.D. IMG US PROCEDURES * TN BX ENDOMETRIAL WO CERVIX DIL (02/19/2023 1:15 PM DIALYSIS CHIEF EQUIPMENT TECHNICIAN) Narrative MMODAL - 02/19/2023 1:15 PM DIALYSIS CHIEF EQUIPMENT TECHNICIAN Librado Blanton M.D. ? 02/19/2023 ??1:52 PM [...] Blanton M.D. OB GYNE ORDERABLES MMODAL NA documented in this encounter Visit Diagnoses Diagnosis Bleeding Dysfunctional Uterine- Primary Bleeding Dysfunctional Uterine documented in this encounter Additional Health Concerns Assessment Noted Time PHQ-9 Depression Total Score: 11 020 4:00 PM DIALYSIS CHIEF EQUIPMENT TECHNICIAN documented as of this encounter Care Teams Glass Block Installer Relationship Specialty Start Date End Date Elsewhere, Pcp PCP - General Hydraulic Press Operator 03/18/19 documented as of this encounter
--- OUTSIDE RECORDS SUMMARY | 2023-04-30 11:18 | XMS_ITS | Encounter Summary ---
Author Name Unknown Organization [facility] Address [address] [place] [address] Care Team Providers Care Relay Associate Name Role Phone Elsewhere, Pcp Primary Care Provider Unavailabl e Reason for Visit * Outpatient (Routine) - Closed Specialty Diagnoses / Procedures Referred By Dionte garcia Referred To Contact Diagnoses Bleeding Dysfunctional Uterine Procedures US Pelvis Transvaginal Librado Blanton M.D. [address] [place] [phone] [facility] Referral ID Status Reason Start Date Expiration Date Visits Re quested Visits Authorized [id number] Closed 02/19/2023 02/19/2024 1 1 Encounter Details Date Type Department Care Team (Latest Contact Info) Description 02/19/2023 1:30 PM VOLLEYBALL ASSISTANT COACH Ancillary Procedure Department of Obstetrics and Gynecology in [place], [place] [address] [place] [phone] Librado Blanton M.D. [address] [place] [phone] Bleeding Dysfunctional Uterine Social History Tobacco Use Types Packs/Day Years [...] 04/04/2022 How often do you attend chur or hindu services? More than 4 times per year 04/04/2022 Do you belong to any clubs o r organizations such as jewish groups, unions, fraternal or athletic groups, or [...] Answer Date Recorded PHQ-2 Score 4 04/11/2019 [facility] of Occupat ional Health - Occupational Stress [...] place to sleep or slept in a intermediate (including now)? No 04/04/2022 Depression Answer Date [...] AM CDT documented as of this encounter Plan of Treatment Not on file documented as of this encounter Procedures Procedure Name Priority Date/Time Associated Diagnosis Comments US PELVIS TRANSVAGINAL RAD - Routine (most inpatients and all outpatients) 02/19/2023 1:41 PM VOLLEYBALL ASSISTANT COACH Bleeding Dysfunctional Uterine documented in this encounter Results * US Pelvis Transvaginal (02/19/2023 1:41 PM VOLLEYBALL ASSISTANT COACH) Anatomical Region Laterality Modality Pelvis, Ultrasound RST LOS, Ultrasound ARZ LOS, Ultrasound FLA LOS N/A Ultrasound 02/19/2023 1:48 PM VOLLEYBALL ASSISTANT COACH Impressions 02/19/2023 1:49 PM VOLLEYBALL ASSISTANT COACH Normal pelvic ultrasound Narrative 02/19/2023 1:49 PM VOLLEYBALL ASSISTANT COACH EXAM: US PELVIS TRANSVAGINAL COMPARISON: TECHNIQUE: Transvaginal. [...] ultrasound Librado Blanton M.D. IMG US PROCEDURES documented in this encounter Visit Diagnoses Diagnosis Bleeding Dysfunctional Uterine documented in this encounter Additional Health Concerns Assessment Noted Time PHQ-9 Depression Total Score: 11 04/11/ 020 4:00 PM VOLLEYBALL ASSISTANT COACH documented as of this encounter Care Teams Relay Associate Relationship Specialty Start Date End Date Elsewhere, Pcp PCP - General Flap Maker 03/18/19 documented as of this encounter
[2023-04-30 11:19] LABS: Lactate* 0.7 mmol/L (0.5-1.9)
[2023-04-30 11:20] LABS: Basophils Absolute Auto 0.01 K/uL (0.00-0.30); Basophils Percent Auto 0.1 % (0.0-3.0); Eosinophils Absolute Auto 0.09 K/uL (0.00-0.50); Eosinophils Percent Auto 0.9 % (0.0-7.0); Hematocrit 45.4 % (33.0-51.0); Hemoglobin* 14.4 gm/dL (12.0-16.0); Immature Granulocytes Abs Auto 0.02 K/uL (0.00-0.30); Immature Granulocytes Pct Auto 0.2 %; Lymphocytes Percent Auto 1.4 % (20-44); Mean Corpuscular HGB Conc 32 gm/dL (32-36); Mean Corpuscular Hemoglobin 28 pg (26-34); Mean Corpuscular Volume 88 fL (80-100); Monocytes Percent Auto 4.5 % (0.0-11.0); Neutrophils Percent Auto 92.9 % (42.0-72.0); Platelet Count* 306 K/uL (140-440); RDW Coefficient of Variation % 12.8 % (11.5-15.5); Red Blood Count 5.14 m/uL (4.00-5.20)
[2023-04-30 11:21] LABS: Slide Review Reflex No
[2023-04-30] MEDS: KETOROLAC 15 MG/ML inj IVP (11:40)
[2023-04-30 11:42] LABS: Chloride* 116 mmol/L (96-114); Potassium* 3.8 mmol/L (3.6-5.1); Sodium* 144 mmol/L (135-149)
[2023-04-30 11:43] LABS: Anion Gap 12 mEq/L (7-15); Carbon Dioxide* 16 mmol/L (20-32); Glucose* 111 mg/dL (60-115)
--- NOTE | 2023-04-30 11:43 | CRLHL7_ITS ---
For Patients: As a result of the Century Cures Act, medical imaging exams and procedure reports are released immediately into your electronic medical record. You may view this report before your referring provider. If you have questions, please contact your health care provider. INDICATION: Right upper quadrant abdomen pain. TECHNIQUE: Ultrasound abdomen limited. Sonographic images of the right upper quadrant were obtained using parkinson-scale and color Doppler images. COMPARISON: CT abdomen pelvis 07/23/2019. FINDINGS: Liver: Normal in size and echotexture. No suspicious masses. No intrahepatic biliary dilatation. Gallbladder: No stones or sludge. Normal wall thickness. No pericholecystic fluid. Common bile duct: 4 mm. Pancreas: Unremarkable. Right kidney: Normal in size. Normal echotexture and cortex. No suspicious masses, stones, or hydronephrosis. Vasculature: Proximal abdominal aorta and IVC are unremarkable. IMPRESSION: Unremarkable right upper quadrant ultrasound. Dictated by David Perdue MD @ 04/30/2023 12:44:05 PM (Electronically Signed)
[2023-04-30] MEDS: LORazepam 2 MG/ML inj 0.5 MG IVP (11:53)
[2023-04-30 12:07] LABS: Albumin* 4.6 g/dL (3.3-5.0)
[2023-04-30 12:09] VITALS: BP 101/57; PULSE 75; O2SAT 96
[2023-04-30 12:10] LABS: Alanine Aminotransferase* 75 U/L (4-35); Alkaline Phosphatase* 167 U/L (40-150); Aspartate Amino Transferase* 29 U/L (12-35); Bilirubin Total* 0.8 mg/dL (0.1-1.5); Blood Urea Nitrogen* 18 mg/dL (5-24); Calcium* 9.2 mg/dL (8.4-10.6); Creatinine* 0.9 mg/dL (0.5-1.5); Est. Creatinine Clearance* 86.33; Estimated Glomerular Filt Rate 84 ml/min; Lipase* 256 U/L (23-300)
[2023-04-30 12:13] LABS: C Reactive Protein* 0.6 mg/dL (0.5-1.0)
--- NOTE | 2023-04-30 12:17 | CRLHL7_ITS ---
For Patients: As a result of the Century Cures Act, medical imaging exams and procedure reports are released immediately into your electronic medical record. You may view this report before your referring provider. If you have questions, please contact your health care provider. INDICATION: Right upper quadrant pain COMPARISON: A CT dated July 13, 2019 TECHNIQUE: CT examination of the abdomen and pelvis was performed following the uneventful intravenous administration of 99 cc of Isovue 370. Thin section axial images were obtained from the lung bases through the pubic symphysis. Oral contrast was not administered. Please note that all CT scans at this facility use dose modulation, iterative reconstruction, and/or weight-based dosing when appropriate to reduce radiation dose to as low as reasonably achievable. FINDINGS: LUNG BASES: The lung bases as visualized appear normal.The heart size is normal at the lung bases. LIVER/BILIARY SYSTEM:The liver is normal in size and configuration. There is no focal mass and there is no intra- or extra hepatic biliary ductal dilatation.Distended bed otherwise unremarkable appearing gallbladder. Probable mild steatosis ADRENALS: Normal KIDNEYS, URETERS and BLADDER:The kidneys appear normal. No visible mass, calculus or hydronephrosis. The ureters and bladder as visualized appear normal. SPLEEN:Normal appearance. PANCREAS: Appears normal. RETROPERITONEUM and MESENTERY: There is no mass, adenopathy or aortic aneurysm. GASTROINTESTINAL SYSTEM: There is no evidence of diverticulitis, colitis, mechanical obstruction, or appendicitis. The small bowel as visualized appears normal. PELVIS: No mass, adenopathy or free fluid. OSSEOUS STRUCTURES and ABDOMINAL WALL: There is an age-appropriate appearance of the osseous structures.No significant abdominal wall defect. OTHER: No free fluid or free air. IMPRESSION: No visible cause for right upper quadrant pain Please note that all CT scans at this facility use dose modulation, iterative reconstruction, and/or weight-based dosing when appropriate to reduce radiation dose to as low as reasonably achievable. Dictated by Raheel Rangel MD @ 04/30/2023 1:27:40 PM (Electronically Signed)
[2023-04-30] MEDS: MORPHINE 4 MG/ML INJ IVP (13:36)
--- NOTE | 2023-04-30 18:52 | ED.NURSE ---
Pt called for work note, caption writer provided note that Pt was evaluated in the ER today. Pt to greens picker note tomorrow, left at hotel front desk agent.
== END 2023-04-30 14:31 | disposition home or self-care (01) ==
PROVIDERS: Emergency Provider Family Medicine; PCP Family Medicine
DX: E87.6 Hypokalemia (principal)
CPT/HCPCS: 36415; 74177; 76705; 80053; 81001; 81025; 83605; 83690; 85025; 86140; 99284; J1885; J2060; J2270; J7030; Q9967

== ENCOUNTER 2023-04-30 20:45 | Observation (INO) | payer BC, SELFPAY ==
[2023-04-30 20:53] VITALS: BP 121/81; PULSE 94; RESP 24; TEMP 36.4; O2SAT 97; BMI 30.9
--- NOTE | 2023-04-30 21:25 | ED.GENADULT ---
HPI - General Adult General Time Seen by Provider: 21:25 Date Seen: 04/30/23 Chief complaint: Nausea/Vomiting Stated complaint: Noravirus-was here earlier Time Seen by Provider: 04/30/23 21:21 History of Present Illness HPI narrative: This is a 38-year-old female returning to the ER today for evaluation of abdominal pain, vomiting, diarrhea. She was seen here this morning in the ER by Dr. Wilhelm. According to those records she has a history of chronic pain and previous history of meth use, previous , previous tubal ligation, depression, anxiety. This morning she was complaining of pain in her epigastrium and right upper quadrant wrapping around to her back. She came in by EMS this morning and had received morphine in route. There was some report of hypotension from 1st responders blood pressure was normal throughout her ER stay. In the ER this morning she had a gallbladder ultrasound that was normal. No stones. No sludge. Normal wall thickness. Normal CBD. She also had a CT scan of her abdomen pelvis. It showed ?no visible cause for right upper quadrant pain ? Lab work showed WBC 9.6, hemoglobin 14.4, platelet count 306 Sodium 144, potassium 3.8, chloride 116, bicarb 16, anion gap 12, BUN 18, creatinine 0.9, glucose 111 Venous lactic 0.7 AST 29, ALT 75, alk-phos 167 CRP 0.6 Lipase normal 256 Urinalysis normal. test negative. She is treated with IV Zofran, IV fluids, IV morphine for symptoms and was symptom medically improved this morning. She was discharged. Within an hour to of getting home she had significant returning nausea. She tried using Zofran ODT at home but was unsuccessful. She had multiple episodes of watery, nonbloody, nonbilious vomiting. Also significant return of epigastric and right upper quadrant pain. She tried for couple of hours to manage her symptoms at home but was unsuccessful, so return to the ER with her mother. She is not having any fever. She has a history of drug use but no ongoing drug use. No alcohol use. She is actually a counselor for former addicts. She does use medical marijuana, about once every few weeks for migraine headache but is not a routine user of medical marijuana or recreational marijuana. Previous surgical history includes and tubal ligation. No previous history of gallstones. No urinary symptoms. Related Data Home Medications Medication Instructions Recorded Confirmed bupropion HCl 300 mg 24 hr tablet, 300 mg PO DAILY 10/07/21 05/01/23 extended release cyclobenzaprine 10 mg tablet 10 mg PO Q12H PRN 10/07/21 05/01/23 omeprazole 10 mg capsule,delayed 10 mg PO DAILY 10/07/21 04/30/23 release amitriptyline 10 mg tablet 10 mg PO QPM 04/30/23 04/30/23 clonidine HCl 0.1 mg tablet 0.05 - 0.1 mg PO BID 04/30/23 05/01/23 rizatriptan 10 mg disintegrating 10 mg PO Q2H PRN 04/30/23 05/01/23 tablet topiramate 25 mg tablet 50 mg PO HS 04/30/23 05/01/23 bupropion HCl 150 mg 24 hr tablet, 150 mg PO DAILY 05/01/23 05/01/23 extended release buspirone 30 mg tablet 30 mg PO BID 05/01/23 05/01/23 gzjzkfrali-ngzvvyougcycg-hjhonhlc 1 tab PO Q4H PRN headache 05/01/23 05/01/23 50 mg-325 mg-40 mg tablet multivitamin 1 tab PO DAILY 05/01/23 05/01/23 ropinirole 1 mg tablet 1 mg PO BID 05/01/23 05/01/23 topiramate 100 mg tablet 100 mg PO HS 05/01/23 05/01/23 Previous Rx's Medication Instructions Recorded ondansetron 4 mg disintegrating 4 mg PO Q8-12H PRN nausea and 04/30/23 tablet vomiting #10 tabs Allergies Allergy/AdvReac Type Severity Reaction Status Date / Time Penicillins AdvReac Severe Anaphylaxis Verified 04/30/23 13:08 metoclopramide [From Reglan] AdvReac Intermediate Verified 04/30/23 13:08 acetaminophen [From Vicodin] AdvReac Verified 04/30/23 13:08 hydrocodone [From Vicodin] AdvReac Verified 04/30/23 13:08 PFSH PFSH Medical History (Updated 05/01/23 @ 11:27 by Morelia Lopez PA-C) Smoker ?F17.200 - Nicotine dependence, unspecified, uncomplicated (ICD-10) PTSD (post-traumatic stress disorder) ?F43.10 - Post-traumatic stress disorder, unspecified (ICD-10) Depression ?F32.A - Depression, unspecified (ICD-10) Anxiety ?F41.9 - Anxiety disorder, unspecified (ICD-10) Methamphetamine use disorder, moderate, in sustained remission ?F15.21 - Other stimulant dependence, in remission (ICD-10) Chronic pain ?G89.29 - Other chronic pain (ICD-10) Surgical History History of ?Z98.891 - History of uterine scar from previous surgery (ICD-10) Social History What is your current living situation?: I presently have a place to live Problems where you live: no known problems Problems where you live details: none In the past 12 months, utilities in danger of being shut off: no In past 12 months, lack of transportation kept you from medical appts, meetings, work, or getting things needed for daily living: no In the past 12 mos, have been you worried that your food would run out before you had money to buy more?: never true In the past 12 mos, the food you bought just didn't last and you didn't have money to buy more?: never true Highest level of school completed/degree received: GED or equivalent Smoking Status: Current every day smoker Do you use any of these nicotine containing products: None and Vaping Products Nicotine containing products detail: Vape Second hand tobacco smoke exposure: No How often do you have a drink containing alcohol: never How often do you have six or more drinks on one occasion: Never AUDIT-C Alcohol total score: 0 Non-prescribed substance use: former substance user and marijuana (any form) Caffeine: Yes How often does anyone, including family, friends and others, physically hurt you: never How often does anyone, including family, friends and others, insult or talk down to you: never How often does anyone, including family, friends and others, threaten you with harm: never How often does anyone, including family, friends and others, scream or curse at you: never service: No Exam Narrative: Exam Narrative: Constitutional: Appears well-developed and well-nourished. Alert. Anxious, moaning, writhing due to nausea and pain. Eyes rolling side to side. Mother attentively at her side. During her conversation she becomes much calmer, no longer writhing. HENT: Head: Atraumatic. Nose: Nose normal. Mouth/Throat: Oral mucosa is clear and moist. no trismus. Pharynx normal. Tonsils symmetric. No tonsillar enlargement, erythema, or exudate. Eyes: Conjunctivae normal. EOM normal. Pupils equal, round, and reactive to light. No scleral icterus. Neck: Normal range of motion. Neck supple. No tracheal deviation present. Cardiovascular: Normal rate, regular rhythm. No gallop. No friction rub. No murmur heard. Symmetric radial artery pulses Pulmonary/Chest: Effort normal. No stridor. No respiratory distress. No wheezes. No rales. No rhonchi . No tenderness. Abdominal: Soft. Bowel sounds normal. No distension. No mass. Epigastric, right upper quadrant, right mid and periumbilical tenderness. Minimal left-sided tenderness. No right lower quadrant or suprapubic tenderness. No CVA tenderness. No rebound. No guarding. Musculoskeletal: RUE: Normal range of motion. No tenderness. No deformity LUE: Normal range of motion. No tenderness. No deformity RLE: Normal range of motion. No edema. No tenderness. No deformity LLE: Normal range of motion. No edema. No tenderness. No deformity Neurological: Alert and oriented to person, place, and time. Normal strength. CN II-VII intact. No sensory deficit. GCS eye subscore is 4. GCS verbal subscore is 5. GCS motor subscore is 6. Normal coordination Skin: Skin is warm and dry. No rash noted. No pallor. Normal capillary refill. Psychiatric: Normal mood and polite during our conversation. Limited due to pain and nausea. Somewhat anxious. Uses medical marijuana once every few weeks. No regularly use. No other drugs. No alcohol use. Const: Vital Signs, click to edit/add: Vital Signs - 24 hr 04/30/23 20:53 04/30/23 22:34 Temperature 97.5 F L 98.0 F Pulse Rate [Pulse Oximeter] 94 90 Respiratory Rate 24 16 Blood Pressure [Ri ght Upper Arm] 121/81 109/72 Pulse Oximetry 97 97 Oxygen Delivery Me thod Room Air Room Air Course Course ED Course: [id number]. Nausea improved. No further vomiting. Still having pain. Morphine ordered. 1 L of fluids in. Blood pressure stable. Vital Signs Vital signs: Initial Vital Signs Temperature 97.5 F L 04/30/23 20:53 Temperature Source Temporal Artery Scan 04/30/23 20:53 Pulse Rate 94 04/30/23 20:53 Respiratory Rate 24 04/30/23 20:53 Blood Pressure 121/81 04/30/23 20:53 Blood Pressure Mean 94 04/30/23 20:53 Blood Pressure Position Sitting 04/30/23 20:53 Pulse Oximetry 97 04/30/23 20:53 Oxygen Delivery Method Room Air 04/30/23 20:53 Vital Signs Temperature 97.5 F L 04/30/23 20:53 Pulse Rate 94 04/30/23 20:53 Respiratory Rate 24 04/30/23 20:53 Blood Pressure 121/81 04/30/23 20:53 Pulse Oximetry 97 04/30/23 20:53 Oxygen Delivery Method Room Air 04/30/23 20:53 Temperature 98.0 F 05/01/23 19:00 Pulse Rate 75 05/01/23 19:00 Respiratory Rate 20 05/01/23 19:00 Blood Pressure 112/76 05/01/23 19:00 Pulse Oximetry 98 05/01/23 19:00 Oxygen Delivery Method Room Air 05/01/23 19:00 Medications Administered Medications: Generic Name Dose Route Start Last Admin Trade Name Freq PRN Reason Stop Dose Admin Acetaminophen 1,000 mg 05/01/23 10:30 05/01/23 16:14 Acetaminophen 500 Mg Tablet PO 1,000 mg Q6H PRN Administration Amitriptyline HCl 10 mg 05/01/23 18:00 05/01/23 18:08 Amitriptyline Hcl 10 Mg Tablet PO 10 mg QPM MINH Administration Buspirone HCl 30 mg 05/01/23 11:30 05/01/23 20:15 Buspirone 10 Mg Tablet PO 30 mg BID MINH Administration Clonidine HCl 0.05 mg 05/01/23 21:00 05/01/23 20:14 Clonidine Hcl 0.1 Mg Tablet PO 0.05 mg HS MINH Administration Clonidine HCl 0.1 mg 05/01/23 11:30 05/01/23 11:39 Clonidine Hcl 0.1 Mg Tablet PO 0.1 mg DAILY MINH Administration Hydromorphone HCl 0.2 - 0.5 mg 05/01/23 12:35 05/01/23 20:15 Hydromorphone 0.5 Mg/0.5 Ml Inj IVP 0.5 mg Q6H PRN Administration Pain Hydroxyzine Pamoate 25 mg 05/01/23 09:49 05/01/23 20:15 Hydroxyzine Pamoate 25 Mg Capsule PO 25 mg Q4H PRN Administration Lactated Ringer's 1,000 mls @ 125 mls/hr 05/01/23 09:45 05/01/23 20:16 Lactated Ringers 1000 Ml IV 125 mls/hr .Q8H MINH Administration Ketorolac Tromethamine 15 mg 05/01/23 10:00 05/01/23 18:08 Ketorolac 15 Mg/Ml Inj IVP 15 mg Q8H PRN Administration Metoclopramide HCl 10 mg 05/01/23 10:00 05/01/23 23:04 Metoclopramide Hcl 5 Mg/Ml Inj IVP 10 mg Q6H MINH Administration Ropinirole HCl 1 mg 05/01/23 11:30 05/01/23 20:14 Ropinirole Hcl 1 Mg Tablet PO 1 mg BID MINH Administration Sodium Chloride 5 ml 05/01/23 00:33 05/01/23 01:06 Sodium Chloride 0.9 % (Flush) 10 Ml Syringe IVF 5 ml .FLUSH PRN Administration Sodium Chloride 5 ml 05/01/23 09:00 05/01/23 20:22 Sodium Chloride 0.9 % (Flush) 10 Ml Syringe IVF Not Given BID MINH Topiramate 100 mg 05/01/23 21:00 05/01/23 20:15 Topiramate 50 Mg Tablet PO 100 mg HS MINH Administration Discontinued Medications Generic Name Dose Route Start Last Admin Trade Name Freq PRN Reason Stop Dose Admin Acetaminophen 650 mg 05/01/23 04:19 05/01/23 04:28 Acetaminophen 325 Mg Tablet PO 650 mg Q6H PRN Administration Acetaminophen 1,000 mg 05/01/23 09:48 05/01/23 10:37 Acetaminophen 325 Mg Tablet PO 1,000 mg Q6H PRN Administration Clonidine HCl 0.05 mg 05/01/23 11:05 05/01/23 11:59 Clonidine Hcl 0.1 Mg Tablet PO Not Given DAILY MINH Droperidol 1.25 mg 04/30/23 21:36 04/30/23 22:08 Droperidol 2.5 Mg/Ml Inj IV 04/30/23 21:37 1.25 mg ONCE ONE Administration Sodium Chloride 1,000 mls @ 1,000 mls/hr 04/30/23 21:45 05/01/23 00:20 0.9 % Sodium Chloride 1000 Ml IV 04/30/23 22:44 Infused .Q1H MINH Infusion Potassium Chloride/Dextrose/Sod Cl 1,000 mls @ 125 mls/hr 05/01/23 00:33 05/01/23 10:40 5 % Dex/0.45 Sod Chl+Kcl20 Meq IV 05/01/23 08:32 Infused .Q8H MINH Infusion Lactated Ringer's 1,000 mls @ 1,000 mls/hr 05/01/23 06:32 05/01/23 08:03 Lactated Ringers 1000 Ml IV 05/01/23 07:31 Infused .Q1H ONE Infusion Potassium Chloride 10 meq in 100 mls @ 100 mls/hr 05/01/23 12:00 05/01/23 16:50 Potassium Chloride IVPB 05/01/23 15:59 Infused Q90M MINH Infusion Ketorolac Tromethamine 30 mg 05/01/23 00:33 05/01/23 09:08 Ketorolac 30 Mg/Ml Inj IVP 30 mg Q6H PRN Administration Lactated Ringer's 1,000 ml 04/30/23 22:39 04/30/23 22:55 Lactated Ringers 1000 Ml IV 04/30/23 22:40 1,000 ml ONCE ONE Administration Lorazepam 0.5 - 1 mg 05/01/23 00:33 05/01/23 05:22 Lorazepam 0.5 Mg Tablet PO 1 mg Q4H PRN Administration Morphine Sulfate 4 mg 04/30/23 22:33 04/30/23 22:54 Morphine 4 Mg/Ml Inj IVP 04/30/23 22:34 2 mg ONCE ONE Administration Pantoprazole Sodium 40 mg 05/01/23 00:33 05/01/23 00:52 Pantoprazole Sodium 40 Mg Inj IVP 05/01/23 00:34 40 mg ONCE ONE Administration Medical Decision Making MDM Narrative Medical decision making narrative: 38-year-old female with a complex past medical history returns to the ER today for symptoms including protracted nausea and vomiting, upper abdominal pain. Her daughter was sick for the past couple of days with a self limited, much more mild, GI illness. Suspect the patient may also have a GI illness, possibly contracted from her daughter. However differential is broad. Workup during her 1st ER visit this morning included reassuring labs. Right upper quadrant ultrasound was negative for any gallstones or other signs of cholecystitis. CT abdomen pelvis was otherwise normal as well. No evidence for liver lesions, pancreatitis, appendicitis, obstruction, colitis, diverticulitis. Labs this morning did show low bicarb indicative of dehydration. An attempt at outpatient management was undertaken and she was discharged home with Zofran 0 DT. This was wholly unsuccessful in managing her nausea. Prompting her return to the ER. Here in the ER today she was significantly uncomfortable and retching with significant voluminous vomiting when she presented. My exam demonstrates epigastric and right upper quadrant tenderness without any Samuel sign or guarding. She is non tympanic. I do not think she is obstructed. At this point I do not think she needs repeat advanced imaging since she just had CT and ultrasound imaging 12 hours ago. Given the significance of her symptoms and inability to control him at home, I do think she will need to be admitted for IV antiemetics and IV hydration overnight. We did administer droperidol after checking QTC. With this we were able to control her vomiting but she has some mild ongoing nausea. She received morphine for pain. Repeat lab workup shows that her bicarb is still low, in fact slightly lower than this afternoon. She has also developed mild hypokalemia. Given recurrent and severe symptoms at home, the patient, her mother, and I agree that admission for IV hydration and supportive care is indicated. Patient is graciously accepted by our hospitalist, Dr. Ridley Lab Data Labs: Lab Results 04/30/23 Range/Units 20:00 WBC 6.98 (4.50-11.00) K/uL RBC 4.69 (4.00-5.20) m/uL Hgb 13.3 (12.0-16.0) gm/dL Hct 41.7 (33.0-51.0) % MCV 89 (80-100) fL MCH 28 (26-34) pg MCHC 32 (32-36) gm/dL RDW Coeff of Mackenzie 12.9 (11.5-15.5) % Plt Count 306 (140-440) K/uL Neut % (Auto) 89.1 H (42.0-72.0) % Lymph % (Auto) 4.0 L (20-44) % [place] % (Auto) 6.4 (0.0-11.0) % Eos % (Auto) 0.0 (0.0-7.0) % Baso % (Auto) 0.1 (0.0-3.0) % Neut # (Auto) 6.20 (1.7-7.0) K/uL Lymph # (Auto) 0.30 L (0.90-2.90) K/uL [place] # (Auto) 0.40 (0.00-0.90) K/UL Eos # (Auto) 0.00 (0.00-0.50) K/uL Baso # (Auto) 0.01 (0.00-0.30) K/uL Abs Immat Gran (auto) 0.03 (0.00-0.30) K/uL Imm/Tot Granulo (auto) 0.4 % Sodium 139 (135-149) mmol/L Potassium 3.5 L (3.6-5.1) mmol/L Chloride 112 (96-114) mmol/L Carbon Dioxide 14 L (20-32) mmol/L Anion Gap 13 (7-15) mEq/L BUN 18 (5-24) mg/dL Creatinine 0.9 (0.5-1.5) mg/dL Estimated Creat Clear 86.33 Estimated GFR 84 ml/min Glucose 120 H (60-115) mg/dL Lactate 1.0 (0.5-1.9) mmol/L Calcium 8.4 (8.4-10.6) mg/dL Magnesium 1.7 (1.5-2.6) mg/dL Total Bilirubin 0.7 (0.1-1.5) mg/dL AST 26 (12-35) U/L ALT 58 H (4-35) U/L Alkaline Phosphatase 125 (40-150) U/L Total Protein 7.3 (6.0-8.3) g/dL Albumin 4.3 (3.3-5.0) g/dL Lipase 120 (23-300) U/L Urine Opiates Screen POSITIVE A (Negative) Ur Oxycodone Screen Negative (Negative) Urine Methadone Screen Negative (Negative) Ur Barbiturates Screen Negative (Negative) U Tricyclic Antidepress POSITIVE A (Negative) Ur Phencyclidine Scrn Negative (Negative) Ur Amphetamines Screen Negative (Negative) U Methamphetamines Scrn Negative (Negative) U Benzodiazepines Scrn Negative (Negative) Urine Cocaine Screen Negative (Negative) U Marijuana (THC) Screen POSITIVE A (Negative) Ur Drug Screen Comment See Note ECG Data Attestation: I personally reviewed and interpreted this ECG as follows: Interpretation: Normal sinus rhythm rate 91 HI 160. QRS axis normal axis. No pathologic Q-waves. ST segment/T wave: No ST segment elevation or depression. No U waves QTc: 442-normal Discharge Plan Discharge Clinical Impression: Acute dehydration, Abdominal pain, vomiting, and diarrhea, Acute hypokalemia Patient Disposition: Admitted As Observation Condition: Guarded
--- OUTSIDE RECORDS SUMMARY | 2023-04-30 22:02 | XMS_ITS | Referral Summary ---
Author Name Unknown Organization [facility] Address [address] [place] [id number] Care Team Providers Care Concession Cashier Name Role Phone No Ref-Primary, Physician Unavailable [phone] More Conde MD Primary Care Provider [phone] Allergies Active Allergy Reactions Criticality Noted Date [...] of Treatment Not on file Care Teams Concession Cashier Relationship Specialty Start Date End Date More Conde MD PCP - General Family Practice 09/19/18 No Ref-Primary, Physician 08/26/18
--- OUTSIDE RECORDS SUMMARY | 2023-04-30 22:02 | XMS_ITS | Clinical Summary ---
Author Name Unknown Organization [facility] Address [address] [place] [id number] Care Team Providers Care Senior Systems Administrator Name Role Phone No Ref-Primary, Physician Unavailable [phone] More Conde MD Primary Care Provider [phone] Allergies Active Allergy Reactions Criticality Noted Date [...] of Treatment Not on file Care Teams Senior Systems Administrator Relationship Specialty Start Date End Date More Conde MD PCP - General Family Practice 09/19/18 No Ref-Primary, Physician 08/26/18
--- OUTSIDE RECORDS SUMMARY | 2023-04-30 22:03 | XMS_ITS | Encounter Summary ---
Author Name Unknown Organization [facility] Address [address] [place] [address] Care Team Providers Care Pipe Cleaning Machine Operator Name Role Phone Elsewhere, Pcp Primary Care Provider Unavailabl e Reason for Visit * Appointment Request (Routine) - Closed Specialty Diagnoses / Procedures Referred By Dionte t Referred To Contact Obstetrics and Gynecology Referral ID Status Reason Start Date Expiration Date Visits Re quested Visits Authorized [id number] Closed 03/06/2023 03/05/2024 1 1 Encounter Details Date Type Department Care Team (Latest Contact Info) Description 03/12/2023 2:15 PM DIRECTOR OF ACCREDITATION Virtual Visit Department of Obstetrics and Gynecology in [address] [phone] Librado Blanton M.D. [address] [place] [address] [phone] Bleeding Dysfunctional Uterine (Primary Dx) Discharge Disposition: [...] often do you attend chur ch or catholic services? More than 4 times per year 04/04/2022 Do you belong to any clubs o r organizations such as episcopalian groups, unions, fraternal or athletic groups, or [...] Answer Date Recorded PHQ-2 Score 4 04/11/2019 [facility] - Occupational [...] place to sleep or slept in a [place] [facility] [place] facility (including now)? No 04/04/2022 Depression Answer Date [...] progestational effect) with glandular and stromal breakdown. CTOR OF ACCREDITATION documented in this encounter Plan of Treatment Not on file documented as of this encounter Visit Diagnoses Diagnosis Bleeding Dysfunctional Uterine- Primary documented in this encounter Additional Health Concerns Assessment Noted Time PHQ-9 Depression Total Score: 11 020 4:00 PM DIRECTOR OF ACCREDITATION documented as of this encounter Care Teams Pipe Cleaning Machine Operator Relationship Specialty Start Date End Date Elsewhere, Pcp PCP - General Hyperion Administrator 03/18/19 documented as of this encounter
--- OUTSIDE RECORDS SUMMARY | 2023-04-30 22:03 | XMS_ITS | Encounter Summary ---
Author Name Unknown Organization [facility] Address [address] [place] [address] Care Team Providers Care Ict Sales Representative Name Role Phone Elsewhere, Pcp Primary Care Provider Unavailabl e Reason for Referral * Outpatient (Routine) - Authorized Specialty Diagnoses / Procedures Referred By Contac t Referred To Contact Diagnoses Bleeding Dysfunctional Uterine Procedures Endometrial Sampling Librado Blanton M.D. [address] [place] [address] [facility] Referral ID Status Reason Start Date Expiration Date V isits Requested Visits Authorized [id number] Authorized 02/19/2023 02/19/2024 1 1 RUCTOR PAINTING * Outpatient (Routine) - Closed Specialty Diagnoses / Procedures Referred By Contac t Referred To Contact Diagnoses Bleeding Dysfunctional Uterine Procedures US Pelvis Transvaginal Librado Blanton M.D. [address] [place] [address] [facility] Referral ID Status Reason Start Date Expiration Date Visits Re quested Visits Authorized [id number] Closed 02/19/2023 02/19/2024 1 1 RUCTOR PAINTING Reason for Visit * Reason Comments Menorrhagia * Appointment Request (Routine) - Closed Specialty Diagnoses / Procedures Referred By Contac t Referred To Contact Obstetrics and Gynecology Diagnoses Menometrorrhagia Espinoza Montanez M.D. [address] [place] [address] Referral ID Status Reason Start Date Expiration Date Visits Re quested Visits Authorized [id number] Closed 02/12/2023 02/12/2024 1 1 Encounter Details Date Type Department Care Team (Latest Contact Info) Description 02/19/2023 1:15 PM INSTRUCTOR PAINTING Comprehensive Visit Department of Obstetrics and Gynecology in [address] [address] Librado Blanton M.D. [address] [place] [address] Bleeding Dysfunctional Uterine (Primary Dx) [...] 04/04/2022 How often do you attend [facility] or yarsani services? More than 4 times per year 04/04/2022 Do you belong to any clubs o r organizations such as religion groups, unions, fraternal or athletic groups, or [...] Answer Date Recorded PHQ-2 Score 4 04/11/2019 [facility] - Occupational [...] Comments Blood Pressure 118/84 02/19/2023 1:00 PM INSTRUCTOR PAINTING Pulse - - Temperature - - Respiratory Rate - - Oxygen Saturation - - Inhaled Oxygen Concentration - - Weight 89.1 kg (196 lb 6.9 oz) 02/19/2023 1:00 P M INSTRUCTOR PAINTING Height 176 cm (5' 9.29) 02/19/2023 1:00 PM INSTRUCTOR PAINTING Body Mass Index 28.76 02/19/2023 1:00 PM INSTRUCTOR PAINTING documented in this encounter Progress Notes * [...] OB history: P4004, status post x2, x2. Event Promotions Coordinator history: Patient's last menstrual period was 02/15/2023.. [...] appearing external genitalia, Bartholin glands, urethra, and [place]'s glands. Vagina: No masses or lesions. No [...] Sampling Librado Blanton M.D. 02/19/2023 1:12 PM INSTRUCTOR PAINTING RUCTOR PAINTING documented in this encounter Procedure Notes * [...] completed successfully: yes Complications: no apparent complications AUTOMOTIVE VEHICLE INSPECTOR RUCTOR PAINTING documented in this encounter Plan of Treatment Not on file documented as of this encounter Procedures Procedure Name Priority Date/Time Associated Diagnosis Comments SURGICAL PATHOLOGY Routine 02/19/2023 1: 55 PM INSTRUCTOR PAINTING Bleeding Dysfunctional Uterine [place] BX ENDOMETRIAL WO CERVIX DIL Routine 02/19/2023 1:15 PM INSTRUCTOR PAINTING Bleeding Dysfunctional Uterine documented in this encounter Results * Surgical Pathology (02/19/2023 1:55 PM INSTRUCTOR PAINTING) 02/23/2023 9:52 AM INSTRUCTOR PAINTING MKTO Report electronically signed by Aysha Mckeon MD 02/23/2023 9:52 AM INSTRUCTOR PAINTING MKTO Specimen Received A. Endometrial biopsy 02/23/2023 9:52 AM INSTRUCTOR PAINTING MKTO Clinical History Dysfunctional uterine bleeding 02/23/2023 9:52 AM INSTRUCTOR PAINTING MKTO Gross Description Submitted as endometrium and consists of hemorrhagic [place]ingo tissues filtering to a loose 0.6 cm. ESB, one block. mpg/nm 02/23/2023 9:52 AM INSTRUCTOR PAINTING MKTO Interpretation FINAL DIAGNOSIS Endometrium, biopsy: Inactive endometrium with decidualized stroma (exogenous progestational effect) with glandular and stromal breakdown. 02/23/2023 9:52 AM INSTRUCTOR PAINTING MKTO Tissue 02/19/2023 1:55 PM INSTRUCTOR PAINTING 02/20/2023 8:43 AM INSTRUCTOR PAINTING Librado Blanton M.D. LAB SURG PATH [facility] [address] [place] [address], [facility] MKTO [facility] [place] [address] * US Pelvis Transvaginal (02/19/2023 1:41 PM INSTRUCTOR PAINTING) Anatomical Region Laterality Modality Pelvis, Ultrasound RST LOS, Ultrasound ARZ LOS, Ultrasound FLA LOS N/A Ultrasound 02/19/2023 1:48 PM INSTRUCTOR PAINTING Impressions 02/19/2023 1:49 PM INSTRUCTOR PAINTING Normal pelvic ultrasound Narrative 02/19/2023 1:49 PM INSTRUCTOR PAINTING EXAM: US PELVIS TRANSVAGINAL COMPARISON: TECHNIQUE: Transvaginal. [...] Librado Blanton M.D. IMG US PROCEDURES * [place] BX ENDOMETRIAL WO CERVIX DIL (02/19/2023 1:15 PM INSTRUCTOR PAINTING) Narrative MMODAL - 02/19/2023 1:15 PM INSTRUCTOR PAINTING Librado Blanton M.D. ? 02/19/2023 ??1:52 PM [...] Depression Total Score: 11 020 4:00 PM INSTRUCTOR PAINTING documented as of this encounter Care Teams Ict Sales Representative Relationship Specialty Start Date End Date Elsewhere, Pcp PCP - General Cigarette Stamper 03/18/19 documented as of this encounter
--- OUTSIDE RECORDS SUMMARY | 2023-04-30 22:03 | XMS_ITS | Encounter Summary ---
Author Name Unknown Organization [facility] Address [address], [place] [address] Care Team Providers Care Wax Molder Name Role Phone More Conde Primary Care Provider [phone] Encounter Details Date Type Department Care Team [...] on filedocumented in this encounter Care Teams Wax Molder Relationship Specialty Start Date End Date More Conde MBBS [address] [place] [id number] PCP - General Family Practice 07/19/19 documented as of this encounter
--- OUTSIDE RECORDS SUMMARY | 2023-04-30 22:03 | XMS_ITS | Referral Summary ---
Author Name Unknown Organization [facility] Address [address] [place] [id number] Care Team Providers Care Hand Cloth Cutter Name Role Phone Elsewhere, Pcp Primary Care Provider Unavailabl e Source Comments Patient records contain information from all sites at [facility]. For routine questions regarding patient records, call [phone] during business hours, M-F 8:00 AM - 5:00 PM Central Time. Record requests for emergency care only can be directed to [phone] at any time.[facility] Encounters Date Type Department Care Team Description 03/12/2023 2:15 PM CASINO DEALER Virtual Visit Department of Obstetrics and Gynecology in [address] [address] Librado Blanton M.D. Bleeding Dysfunctional Uterine (Primary Dx) Discharge Disposition: Home or Self Care 02/19/2023 Clinical Communication Department of Obstetrics and Gynecology in [address] [address] Librado Blanton M.D. 02/19/2023 1:30 PM CASINO DEALER Ancillary Procedure Department of Obstetrics and Gynecology in [address] [address] Librado Blanton M.D. Bleeding Dysfunctional Uterine 02/19/2023 1:15 PM CASINO DEALER Comprehensive Visit Department of Obstetrics and Gynecology in [address] [address] Librado Blanton M.D. Bleeding Dysfunctional Uterine (Primary [...] week 04/04/2022 How often do you attend [facility] or protestant services? More than 4 times per year 04/04/2022 Do you belong to any clubs o r organizations such as jain groups, unions, fraternal or athletic groups, or [...] Answer Date Recorded PHQ-2 Score 4 04/11/2019 [facility] - [facility]ational Stress Questionnaire Answer Date Recorded [...] place to sleep or slept in a retirement (including now)? No 04/04/2022 Depression Answer Date [...] Comments Blood Pressure 118/84 02/19/2023 1:00 PM CASINO DEALER Pulse 72 03/07/2019 7:42 AM CASINO DEALER Temperature 36.4 ??C (97.5 ??F) 02/02/2019 2:12 PM CD T Respiratory Rate 18 01/19/2019 7:49 PM CDT Oxygen Saturation 99% 01/19/2019 11:00 PM CDT Inhaled Oxygen Concentration - - Weight 89.1 kg (196 lb 6.9 oz) 02/19/2023 1:00 P M CASINO DEALER Height 176 cm (5' 9.29) 02/19/2023 1:00 PM CASINO DEALER Body Mass Index 28.76 02/19/2023 1:00 PM CASINO DEALER Plan of Treatment Not on file Procedures Procedure Name Priority Date/Time Associated Diagnosis Comments SURGICAL PATHOLOGY Routine 02/19/2023 1: 55 PM CASINO DEALER Bleeding Dysfunctional Uterine US PELVIS TRANSVAGINAL RAD - Routine (most inpatients and all outpatients) 02/19/2023 1:41 PM CASINO DEALER Bleeding Dysfunctional Uterine [place] BX ENDOMETRIAL WO CERVIX DIL Routine 02/19/2023 1:15 PM CASINO DEALER Bleeding Dysfunctional Uterine from Last 3 Months Results * Surgical Pathology (02/19/2023 1:55 PM CASINO DEALER) 02/23/2023 9:52 AM CASINO DEALER MKTO Report electronically signed by Aysha Mckeon MD 02/23/2023 9:52 AM CASINO DEALER MKTO Specimen Received A. Endometrial biopsy 02/23/2023 9:52 AM CASINO DEALER MKTO Clinical History Dysfunctional uterine bleeding 02/23/2023 9:52 AM CASINO DEALER MKTO Gross Description Submitted as endometrium and consists of hemorrhagic [place] tissues filtering to a loose 0.6 cm. ESB, one block. mpg/nm 02/23/2023 9:52 AM CASINO DEALER MKTO Interpretation FINAL DIAGNOSIS Endometrium, biopsy: Inactive endometrium with decidualized stroma (exogenous progestational effect) with glandular and stromal breakdown. 02/23/2023 9:52 AM CASINO DEALER MKTO Tissue 02/19/2023 1:55 PM CASINO DEALER 02/20/2023 8:43 AM CASINO DEALER Librado Blanton M.D. LAB SURG PATH [facility] [address] [place] [address], [facility] MKTO [address] [place] [address] * US Pelvis Transvaginal (02/19/2023 1:41 PM CASINO DEALER) Anatomical Region Laterality Modality Pelvis, Ultrasound RST LOS, Ultrasound ARZ LOS, Ultrasound FLA LOS N/A Ultrasound 02/19/2023 1:48 PM CASINO DEALER Impressions 02/19/2023 1:49 PM CASINO DEALER Normal pelvic ultrasound Narrative 02/19/2023 1:49 PM CASINO DEALER EXAM: US PELVIS TRANSVAGINAL COMPARISON: TECHNIQUE: Transvaginal. [...] Librado Blanton M.D. IMG US PROCEDURES * [place] BX ENDOMETRIAL WO CERVIX DIL (02/19/2023 1:15 PM CASINO DEALER) Narrative MMODAL - 02/19/2023 1:15 PM CASINO DEALER Librado Blanton M.D. ? 02/19/2023 ??1:52 PM [...] Last 3 Months Administered Medications Care Teams Hand Cloth Cutter Relationship Specialty Start Date End Date Elsewhere, Pcp PCP - General Senior Loss Control Specialist 03/18/19
--- OUTSIDE RECORDS SUMMARY | 2023-04-30 22:03 | XMS_ITS | Clinical Summary ---
Author Name Unknown Organization [facility] Address [address] [place] [address] Care Team Providers Care Vest Presser Name Role Phone Elsewhere, Pcp Primary Care Provider Unavailabl e Source Comments Patient records contain information from all sites at [facility]. For routine questions regarding patient records, call [phone] during business hours, M-F 8:00 AM - 5:00 PM Central Time. Record requests for emergency care only can be directed to [phone] at any time.[facility] Allergies Active Allergy Reactions Criticality Noted [...] Department Care Team Description 03/12/2023 2:15 PM CARPENTERS SUPERVISOR Virtual Visit Department of Obstetrics and Gynecology in [address] [address] Librado Blanton M.D. Bleeding Dysfunctional Uterine (Primary Dx) Discharge Disposition: Home or Self Care 02/19/2023 1:30 PM CARPENTERS SUPERVISOR Ancillary Procedure Department of Obstetrics and Gynecology in [address] [address] Librado Blanton M.D. Bleeding Dysfunctional Uterine 02/19/2023 1:15 PM CARPENTERS SUPERVISOR Comprehensive Visit Department of Obstetrics and Gynecology in [address] [address] Librado Blanton M.D. Bleeding Dysfunctional Uterine (Primary Dx) Discharge Disposition: Home or Self Care 02/19/2023 Clinical Communication Department of Obstetrics and Gynecology in [address] [address] Librado Blanton M.D. from Last 3 Months [...] often do you attend chur ch or shinto services? More than 4 times per year 04/04/2022 Do you belong to any clubs o r organizations such as pentecostalism groups, unions, fraternal or athletic groups, or [...] Answer Date Recorded PHQ-2 Score 4 04/11/2019 [facility] - Occupational [...] Comments Blood Pressure 118/84 02/19/2023 1:00 PM CARPENTERS SUPERVISOR Pulse 72 03/07/2019 7:42 AM CARPENTERS SUPERVISOR Temperature 36.4 ??C (97.5 ??F) 02/02/2019 2:12 PM CD T Respiratory Rate 18 01/19/2019 7:49 PM CDT Oxygen Saturation 99% 01/19/2019 11:00 PM CDT Inhaled Oxygen Concentration - - Weight 89.1 kg (196 lb 6.9 oz) 02/19/2023 1:00 P M CARPENTERS SUPERVISOR Height 176 cm (5' 9.29) 02/19/2023 1:00 PM CARPENTERS SUPERVISOR Body Mass Index 28.76 02/19/2023 1:00 PM CARPENTERS SUPERVISOR Plan of Treatment Health Maintenance Due Date [...] SURGICAL PATHOLOGY Routine 02/19/2023 1: 55 PM CARPENTERS SUPERVISOR Bleeding Dysfunctional Uterine US PELVIS TRANSVAGINAL RAD - Routine (most inpatients and all outpatients) 02/19/2023 1:41 PM CARPENTERS SUPERVISOR Bleeding Dysfunctional Uterine [place] BX ENDOMETRIAL WO CERVIX DIL Routine 02/19/2023 1:15 PM CARPENTERS SUPERVISOR Bleeding Dysfunctional Uterine from Last 3 Months Results * Surgical Pathology (02/19/2023 1:55 PM CARPENTERS SUPERVISOR) 02/23/2023 9:52 AM CARPENTERS SUPERVISOR MKTO Report electronically signed by Aysha Mckeon MD 02/23/2023 9:52 AM CARPENTERS SUPERVISOR MKTO Specimen Received A. Endometrial biopsy 02/23/2023 9:52 AM CARPENTERS SUPERVISOR MKTO Clinical History Dysfunctional uterine bleeding 02/23/2023 9:52 AM CARPENTERS SUPERVISOR MKTO Gross Description Submitted as endometrium and consists of hemorrhagic [place] tissues filtering to a loose 0.6 cm. ESB, one block. mpg/nm 02/23/2023 9:52 AM CARPENTERS SUPERVISOR MKTO Interpretation FINAL DIAGNOSIS Endometrium, biopsy: Inactive endometrium with decidualized stroma (exogenous progestational effect) with glandular and stromal breakdown. 02/23/2023 9:52 AM CARPENTERS SUPERVISOR MKTO Tissue 02/19/2023 1:55 PM CARPENTERS SUPERVISOR 02/20/2023 8:43 AM CARPENTERS SUPERVISOR Librado Blanton M.D. LAB SURG PATH [facility]A [facility] [address] [place] [address], [facility] MKTO [address] [facility] [address] [place] [address] * US Pelvis Transvaginal (02/19/2023 1:41 PM CARPENTERS SUPERVISOR) Anatomical Region Laterality Modality Pelvis, Ultrasound RST LOS, Ultrasound ARZ LOS, Ultrasound FLA LOS N/A Ultrasound 02/19/2023 1:48 PM CARPENTERS SUPERVISOR Impressions 02/19/2023 1:49 PM CARPENTERS SUPERVISOR Normal pelvic ultrasound Narrative 02/19/2023 1:49 PM CARPENTERS SUPERVISOR EXAM: US PELVIS TRANSVAGINAL COMPARISON: TECHNIQUE: Transvaginal. [...] ENDOMETRIAL WO CERVIX DIL (02/19/2023 1:15 PM CARPENTERS SUPERVISOR) Narrative MMODAL - 02/19/2023 1:15 PM CARPENTERS SUPERVISOR Librado Blanton M.D. ? 02/19/2023 ??1:52 PM [...] NA from Last 3 Months Care Teams Vest Presser Relationship Specialty Start Date End Date Elsewhere, Pcp PCP - General Server Programmer 03/18/19
--- OUTSIDE RECORDS SUMMARY | 2023-04-30 22:03 | XMS_ITS | Encounter Summary ---
Author Name Unknown Organization [facility] Address [address] [address] Care Team Providers Care Field Party Manager Name Role Phone More Conde Primary Care Provider [phone] Encounter Details Date Type Department Care Team [...] on filedocumented in this encounter Care Teams Field Party Manager Relationship Specialty Start Date End Date More Conde MBBS [address] [place] [id number] PCP - General Family Practice 07/19/19 documented as of this encounter
--- OUTSIDE RECORDS SUMMARY | 2023-04-30 22:03 | XMS_ITS | Clinical Summary ---
Author Name Unknown Organization [facility] Address [place], [place] [address] Care Team Providers Care News Wire Photo Operator Name Role Phone Espinoza Montanez MD Primary [...] 30 Tablet 0 3 Active rizatriptan (MAXALT MIRROR PAINTER) 10 mg disintegrating tabletIndications:S tatus migrainosus Place [...] DAILY 15 mL 2 3 Active Insulin Helm, Disposable, (BD Polly 2nd Gen Pen Needle) [...] migh t be different from the original. B2B Outside Sales Representative Orders placed for 2021 Problem Noted Date [...] screening 04/13/19 08 Overview: 2003 LSIL 07/2003 Wittman: CONCHIS I, ECC Benign 2005 LSIL 07/2005 Wittman: No Bx 11/2005 Wittman: CONCHIS 1, ECC Benign 04/2007 LSIL/HPV+ 05/2007 Wittman: No Bx 12/2007 NIL 12/2008 NIL 02/2010 [...] Department Care Team Description 04/14/2023 4:00 PM KNIFE OPERATOR [facility] [address] [facility] [address] [place] [phone] Olivia Mccarty MBBS Telehealth (Virtual visit-no vitals taken. /); Weight (MWL-wegovy ) 04/14/2023 Travel 04/07/2023 Orders Only [facility] Scanner 1 scan: (1-Ord) INCOMING RECORDS-US, [facility], 04/07/2023 04/03/2023 11:00 AM KNIFE OPERATOR [facility]medicine [facility] [address] [facility] [address] [place] [address] Carol Painting, JOON Telehealth 04/03/2023 Travel 03/30/2023 Refill [facility] [address] [facility] [address] [place] [address] Olivia Mccarty MBBS Refill Request (Wegovy) 03/20/2023 Patient Outreach [address] [phone] Rhonda Garcia, SEAMLESS TUBE MILL OPERATOR Follow up (Nausea/vomiting/intr actable headache/ED Risk 71%/03/20/2023); Primary RN Care Management (03/20/2023) 03/19/2023 10:36 PM KNIFE OPERATOR - 03/20/2023 1:09 AM KNIFE OPERATOR [facility] [address] [facility] [place] [address] Sunil Fox MD Nausea and vomiting in adult (Primary Dx); Acute nonintractable headache, unspecified headache type Discharge Disposition: Home Self Care 03/19/2023 Travel 03/18/2023 Refill [facility] Weight Management - [facility] [address] [place] [address] [address] [place] [address] Olivia Mccarty MBBS Refill Request (Bd Polly 2nd Gen Pen Needle) 02/27/2023 Telephone [facility] Weight Management [facility] [address] [place] [phone] Olivia Mccarty MBBS Prior Authorization (semaglutide, weight loss, (Wegovy) 1.7 mg/0.75 mL pen Approved 02/04/23-02/27/24) 02/24/2023 3:30 PM KNIFE OPERATOR Telemedicine [facility] Weight Management [facility] [address] [place] [phone] Olivia Mccarty MBBS Telehealth (Virtual visit-no vitals taken. /); Weight (MWL-saxenda ) 02/09/2023 Medical Messaging [address] [phone] Espinoza Montanez MD Referral request from Last [...] Sex Assigned at Female 04/12/2020 5:37 PM KNIFE OPERATOR Gender Identity Female 04/12/2020 5:37 PM KNIFE OPERATOR Sexual Orientation Bisexual 04/12/2020 5: 37 PM KNIFE OPERATOR Obstetrics History Para Term AB IAB SAB Ectopic Multiple Livin g Live Births 2 2 2 0 0 0 0 0 0 2 2 Date Outcome GA Total Labor Labor/2nd/3rd Weight Sex Delivery Anes PTL Alondra A1 A5 Name Cl in 10/10 Term 40w 0d 23h 00m/ 3.06 kg (6 lb 12 oz) M Vag Epidu ral Geovanna ng [facility] Comments: wit h no GDM or labor; uncomplicated delivery of healthy boy 10/28 Term 4.45 kg (9 lb 13 oz) F Vag Epidu ral N Geovanna ng 8 9 Kourt annabelle Schoe l Delivery Location:[facility] Comments:macrosomic in keiry Last Filed Vital Signs Vital Sign Reading Time Taken Comments Blood Pressure 131/92 03/19/2023 10:35 PM KNIFE OPERATOR Pulse 76 03/19/2023 10:35 PM KNIFE OPERATOR Temperature 36.7 ??C (98.1 ??F) 03/19/2023 10:[address] Respiratory Rate 20 03/19/2023 10:35 PM KNIFE OPERATOR Oxygen Saturation 97% 03/19/2023 10:35 PM KNIFE OPERATOR Inhaled Oxygen Concentration - - Weight 89.4 kg (197 lb) 04/14/2023 3:00 PM KNIFE OPERATOR Height 174 cm (5' 8.5) 04/14/2023 3:00 PM KNIFE OPERATOR Body Mass Index 29.51 04/14/2023 3:00 PM KNIFE OPERATOR Plan of Treatment Upcoming Encounters Date Type Department Care Team (Late st Contact Info) Description 06/09/2023 11:00 AM KNIFE OPERATOR Telemedicine [facility] Weight Management - [facility] [address] [facility] [address] [place] [phone] Carol Painting, RD [address] [facility] [address] [place] [address] 06/23/2023 3:00 PM CDT Office Visit [facility] [place] [facility] [address] [place] [address] Ruddy Garcia MD [address] [place] [address] 07/06/2023 3:30 PM CDT Telemedicine [facility] Weight Management - [facility] [address] [facility] [address] [place] [phone] Olivia Mccarty MBBS [address] [facility] [address] [place] [address] Health Maintenance Due Date Last Done Comments [...] Diagnosis Comments SCAN CORRESP-IMAGING 04/07/2023 12:00 AM KNIFE OPERATOR LIPASE STAT 03/19/2023 11:15 PM KNIFE OPERATOR HEPATIC FUNCTION PANEL STAT 03/19/2023 11:15 PM KNIFE OPERATOR BASIC METABOLIC PANEL STAT 03/19/2023 11:15 PM KNIFE OPERATOR CBC W PLT NO DIFF STAT 03/19/2023 11: 15 PM KNIFE OPERATOR from Last 3 Months Results * SCAN CORRESP-IMAGING (04/07/2023 12:00 AM KNIFE OPERATOR) Anatomical Region Laterality Modality Other Scanner OTHER * CBC W PLT NO DIFF (03/19/2023 11:15 PM KNIFE OPERATOR) WHITE BLOOD COUNT 6.6 4.5 - 11.0 thou/cu mm 03/19/2023 11:32 PM KNIFE OPERATOR [facility] RED BLOOD COUNT 4.80 4.00 - 5.20 mil/cu mm 03/19/2023 11:32 PM KNIFE OPERATOR [facility] HEMOGLOBIN 13.9 12.0 - 16.0 g/dL 03/19/2023 11:32 PM KNIFE OPERATOR [facility] HEMATOCRIT 42.6 33.0 - 51.0 % 03/19/2023 11:32 PM KNIFE OPERATOR [facility] MCV 89 80 - 100 fL 03/19/2023 11:32 PM KNIFE OPERATOR [facility] MCH 29.0 26.0 - 34.0 pg 03/19/2023 11:32 PM KNIFE OPERATOR [facility] MCHC 32.6 32.0 - 36.0 g/dL 03/19/2023 11:32 PM KNIFE OPERATOR [facility] RDW 14.2 11.5 - 15.5 % 03/19/2023 11:32 PM KNIFE OPERATOR [facility] PLATELET COUNT 358 140 - 440 thou/cu mm 03/19/2023 11:32 PM KNIFE OPERATOR [facility] MPV 10.7 6.5 - 11.0 fL 03/19/2023 11:32 PM KNIFE OPERATOR [facility] Blood BLOOD SPECIMEN / Unknown Venipuncture / Unknown 03/19/2023 11:15 PM KNIFE OPERATOR 03/19/2023 11:19 PM KNIFE OPERATOR Sunil Fox MD HEMATOLOGY Performing Organization Address [facility]/ZIP Co de Phone Number [address] [address] * LIPASE (03/19/2023 11:15 PM KNIFE OPERATOR) LIPASE 32.3 13.0 - 60.0 IU/L 03/19/2023 11:39 PM KNIFE OPERATOR [facility] Blood BLOOD SPECIMEN / Unknown Venipuncture / Unknown 03/19/2023 11:15 PM KNIFE OPERATOR 03/19/2023 11:19 PM KNIFE OPERATOR Sunil Fox MD CHEMISTRY Performing Organization Address City/[facility]/[place]UST Co de Phone Number [address] [address] * (ABNORMAL) HEPATIC FUNCTION PANEL (03/19/2023 11:15 PM KNIFE OPERATOR) ALBUMIN 4.8 4.0 - 4.9 g/dL 03/19/2023 11:39 PM KNIFE OPERATOR [facility] PROTEIN,TOTAL 7.4 6.0 - 8.0 g/dL 03/19/2023 11:39 PM KNIFE OPERATOR [facility] BILIRUBIN,TOTAL 0.6 0.0 - 1.2 mg/dL 03/19/2023 11:39 PM KNIFE OPERATOR [facility] BILIRUBIN,DIRECT <0.2 0.0 - 0.3 mg/dL 03/19/2023 11:39 PM KNIFE OPERATOR [facility] BILIRUBIN,INDIRE CT 03/19/2023 11:39 PM [facility] Comment:Unable to calculate, Direct Bili <0.2 ALK PHOSPHATASE 191(H) 35 - 104 IU/L 03/19/2023 11:39 PM [facility] ALT (SGPT) 87(H) 10 - 35 IU/L 03/19/2023 11:39 PM KNIFE OPERATOR [facility] AST (SGOT) 29 10 - 35 IU/L 03/19/2023 11:39 PM [facility] Blood BLOOD SPECIMEN / Unknown Venipuncture / Unknown 03/19/2023 11:15 PM KNIFE OPERATOR 03/19/2023 11:19 PM KNIFE OPERATOR [place] [address] * (ABNORMAL) BASIC METABOLIC PANEL (03/19/2023 11:15 PM KNIFE OPERATOR) SODIUM 141 136 - 145 mmol/L 03/19/2023 11:39 PM [facility] POTASSIUM 3.6 3.5 - 5.1 mmol/L 03/19/2023 11:39 PM [facility] CHLORIDE 105 98 - 107 mmol/L 03/19/2023 11:39 PM [facility] CO2,TOTAL 21(L) 22 - 29 mmol/L 03/19/2023 11:39 PM [facility] ANION GAP 15 5 - 18 03/19/2023 11:39 PM [facility] GLUCOSE 80 70 - 99 mg/dL 03/19/2023 11:39 PM [facility] CALCIUM 10.0 8.6 - 10.0 mg/dL 03/19/2023 11:39 PM [facility] BUN 14 6 - 20 mg/dL 03/19/2023 11:39 PM [facility] CREATININE 0.86 0.50 - 0.90 mg/dL 03/19/2023 11:39 PM [facility] BUN/CREAT RATIO 16 10 - 20 11:39 PM KNIFE OPERATOR [facility] eGFR 90(L) >90 mL/min/1.7 3m2 03/19/2023 11:39 PM KNIFE OPERATOR [facility] Comment:As of 2021, eG FR is calculated by the CKD-EPI creatinine equation without race adjustment. ??eGFR can be influenced by muscle mass, exercise, and diet. ??The reported eGFR is an estimation only and is only applicable if the renal function is stable. Blood BLOOD SPECIMEN / Unknown Venipuncture / Unknown 03/19/2023 11:15 PM KNIFE OPERATOR 03/19/2023 11:19 PM KNIFE OPERATOR Sunil Fox MD CHEMISTRY [place] [address] [place] [address] from Last 3 Months Advance Directives Latest [...] 4:48 AM 10/31/2007 3:48 PM Care Teams News Wire Photo Operator Relationship Specialty Start Date End Date Espinoza Montanez MD [address] [facility] [place] [address] PCP - General Family Practice 01/17/20 Flaca Miles PA [address] [place] [address] Consulting Physician Physician Assistant Clinical Nurse Manager 01/17/20 Tegan Freedman Psychiatry Psychiatry 01/17/20
--- OUTSIDE RECORDS SUMMARY | 2023-04-30 22:03 | XMS_ITS | Encounter Summary ---
Author Name Unknown Organization [facility] Address [address] [place] [address] Care Team Providers Care Bilingual Recruiter Name Role Phone Elsewhere, Pcp Primary Care Provider Unavailabl e Encounter Details Date Type Department Care Team (Late st Contact Info) Description 02/19/2023 Clinical Communication Department of Obstetrics and Gynecology in [place], [place] [address] [place] [phone] Librado Blanton M.D. [address] [place] [phone] Social History Tobacco Use Types Packs/Day Years [...] often do you attend chur ch or evangelical services? More than 4 times per year 04/04/2022 Do you belong to any clubs o r organizations such as spiritism groups, unions, fraternal or athletic groups, or [...] Answer Date Recorded PHQ-2 Score 4 04/11/2019 [facility] [place] of Occupat ional Health - Occupational Stress [...] place to sleep or slept in a assisted (including now)? No 04/04/2022 Depression Answer Date [...] Elayne Lynne L.PSivaN. - 02/19/2023 2:02 PM LEG ASSEMBLER [facility] Surgery Clinic Checklist Patient Contact Number: [phone] Surgeon: Franny Surgical Service: (_) Orthopedics (_) General surgery (_) Ophthalmology (_) Podiatry (_) ENT (_) Urology (X) OB / Gynecology (_) Other Date of Surgery: 04/03/23 Place of Surgery: [facility] Procedure (as written on Consent): total laparoscopic hysterectomy, bilateral salpingectomy Right, Left, Bilateral, N/A: Diagnosis (reason for surgery): AUB, prior sterilization ICD-10: n93.8 CPT: 40461 ASSEMBLER documented in this encounter Plan of Treatment Not on file documented as of this encounter Visit Diagnoses Not on filedocumented in this encounter Additional Health Concerns Assessment Noted Time PHQ-9 Depression Total Score: 11 020 4:00 PM LEG ASSEMBLER documented as of this encounter Care Teams Bilingual Recruiter Relationship Specialty Start Date End Date Elsewhere, Pcp PCP - General Service Line Bus Cleaner 03/18/19 documented as of this encounter
--- OUTSIDE RECORDS SUMMARY | 2023-04-30 22:03 | XMS_ITS | Encounter Summary ---
Author Name Unknown Organization [facility] Address [address] [place] [address] Care Team Providers Care Sort Line Worker Name Role Phone Elsewhere, Pcp Primary Care Provider Unavailabl e Reason for Visit * Outpatient (Routine) - Closed Specialty Diagnoses / Procedures Referred By Dionte garcia Referred To Contact Diagnoses Bleeding Dysfunctional Uterine Procedures US Pelvis Transvaginal Librado Blanton M.D. [address] [place] [phone] [facility] Referral ID Status Reason Start Date Expiration Date Visits Re quested Visits Authorized [id number] Closed 02/19/2023 02/19/2024 1 1 Encounter Details Date Type Department Care Team (Latest Contact Info) Description 02/19/2023 1:30 PM BURNISHING MACHINE OPERATOR Ancillary Procedure Department of Obstetrics and Gynecology in [place], [place] [address] [place] [phone] Librado Blanton M.D. [address] [place] [phone] Bleeding Dysfunctional Uterine Social History Tobacco [...] How often do you attend chur or shinto services? More than 4 times per year 04/04/2022 Do you belong to any clubs o r organizations such as cheondoism groups, unions, fraternal or athletic groups, or [...] Answer Date Recorded PHQ-2 Score 4 04/11/2019 [facility] of Occupat ional Health - Occupational Stress [...] place to sleep or slept in a [facility] (including now)? No 04/04/2022 Depression Answer Date [...] inpatients and all outpatients) 02/19/2023 1:41 PM BURNISHING MACHINE OPERATOR Bleeding Dysfunctional Uterine documented in this encounter Results * US Pelvis Transvaginal (02/19/2023 1:41 PM BURNISHING MACHINE OPERATOR) Anatomical Region Laterality Modality Pelvis, Ultrasound RST LOS, Ultrasound ARZ LOS, Ultrasound FLA LOS N/A Ultrasound 02/19/2023 1:48 PM BURNISHING MACHINE OPERATOR Impressions 02/19/2023 1:49 PM BURNISHING MACHINE OPERATOR Normal pelvic ultrasound Narrative 02/19/2023 1:49 PM BURNISHING MACHINE OPERATOR EXAM: US PELVIS TRANSVAGINAL COMPARISON: [...] Total Score: 11 04/11/ 020 4:00 PM BURNISHING MACHINE OPERATOR documented as of this encounter Care Teams Sort Line Worker Relationship Specialty Start Date End Date Elsewhere, Pcp PCP - General Instructor Painting 03/18/19 documented as of this encounter
--- OUTSIDE RECORDS SUMMARY | 2023-04-30 22:03 | XMS_ITS | Encounter Summary ---
Author Name Unknown Organization [facility] Address [address] [place] [address] Care Team Providers Care Filling And Packing Supervisor Name Role Phone No Ref-Primary, Physician Unavailable [phone] No Ref-Primary, Physician Primary Care Provider More Conde MD Primary Care Provider [phone] Reason for Visit * Reason Onset Date Comments [facility] 08/26/2018 Encounter Details Date Type Department Care Team ([facility] st Contact Info) Description 08/26/2018 Telephone [facility] Behavioral Health Intake [address] [place] [address] Generic, Behavioral Intake, [facility] [...] 09/07/2018 3:36 PM CDT Received call from cytogenetic technologist Rhonda, and she reports pt will be attending tx elsewhere and will not bepursing admission to +. * Telephone Encounter - Мария Bush LADC - 09/06/2018 8:07 AM CDT I called Liudmila at [phone] (unable to leave message) and the other phone at [phone] (voicemail, but unclear if it is patient). I did not leave messages. I called cytogenetic technologist Rhonda Eli at [phone]. * Telephone Encounter - Мария Bush LADC - 09/02/2018 4:24 PM CDT I received and reviewed Comprehensive Assessment from [facility], where she is currently in residential treatment. I called patient at [phone], but could not leave a message. I called cytogenetic technologist Rhonda Shawly at [phone] and left voicemail asking if patient is [...] PTSD diagnosis. It appears she has a [facility] medication management appointment set up. She has CPS involvement. She denied suicidal ideation. * Telephone Encounter - Joey Cervantes - 09/02/2018 8:11 AM CDT Client called directly Is seeking L+ Will fax over clinical * Telephone Encounter - Ruddy Lucia - 08/26/2018 9:42 AM CDT 08/26/18 Received CD Assessment w/o DUANE from Rhonda Benitez ([facility] [phone]), left aVM for Rhonda that the DUANE is needed prior to assessment being reviewed. Filed for DUANE. JT documented in this encounter Plan of Treatment Not on file documented as of this encounter Visit Diagnoses Not on filedocumented in this encounter Care Teams Filling And Packing Supervisor Relationship Specialty Start Date End Date No Ref-Primary, Physician PCP - General 09/16/18 09/18/18 More Conde MD PCP - General Family Practice 09/19/18 No Ref-Primary, Physician 08/26/18 documented as of this encounter
--- OUTSIDE RECORDS SUMMARY | 2023-04-30 22:03 | XMS_ITS ---
Author Name Unknown Organization [facility] Address [address] [place] [address] Care Team Providers Care Senior Technical Support Engineer Name Role Phone Unavailable Unavailable Unavailable Surgery Details Not on file Complications Check Surgery Details section. Procedure Estimated Blood Loss Check Surgery Details section. Procedure Findings Check Surgery Details section. Procedure Specimens Taken Check Surgery Details section.
--- OUTSIDE RECORDS SUMMARY | 2023-04-30 22:03 | XMS_ITS | Clinical Summary ---
Author Name Unknown Organization [facility] Address [address] [place] [address] Care Team Providers Care Careers Counsellor Name Role Phone More Conde Primary Care Provider [phone] Source Comments You are receiving this document as you are listed as the primary care provider,follow-up provider, or the patient has been referred to you for consultation.This is in compliance with the Medicare and[facility] EHR Incentive Program,which states Providers who transition their patient to another setting of careor provider of care or refers their patient to another provider of care shouldprovide summary care record for each transition of care or referral. [facility] Art Allergies Active Allergy Reactions Criticality Noted Date [...] (Polio) 10/09/1998,01/11/1998,12/13/1997 Influenza IIV4 (Quadrivalent ) 0.5mL (99058) 02/21/2010 MMR 10/09/1998 PPSV23 (Pneumovax) 10/18/2012 Pneumococcal [...] CDT Oxygen Saturation 98% 04/19/2017 7:46 PM CAR DUMPER OPERATOR HELPER Inhaled Oxygen Concentration - - Weight 94.6 [...] 6:06 AM 10/23/2016 3:44 PM Care Teams Careers Counsellor Relationship Specialty Start Date End Date More Conde MBBS [address] [place] [address] PCP - General Family Practice 07/19/19
[2023-04-30] MEDS: 0.9 % SODIUM CHLORIDE 1000 ml 1,000 ML IV (22:08)
[2023-04-30] MEDS: droperidoL 2.5 MG/ML inj 1.25 MG IV (22:08)
[2023-04-30 22:30] LABS: Albumin* 4.3 g/dL (3.3-5.0); Chloride* 112 mmol/L (96-114); Sodium* 139 mmol/L (135-149)
[2023-04-30 22:31] LABS: Potassium* 3.5 mmol/L (3.6-5.1)
[2023-04-30 22:33] LABS: Alanine Aminotransferase* 58 U/L (4-35); Alkaline Phosphatase* 125 U/L (40-150); Anion Gap 13 mEq/L (7-15); Aspartate Amino Transferase* 26 U/L (12-35); Bilirubin Total* 0.7 mg/dL (0.1-1.5); Blood Urea Nitrogen* 18 mg/dL (5-24); Calcium* 8.4 mg/dL (8.4-10.6); Carbon Dioxide* 14 mmol/L (20-32); Creatinine* 0.9 mg/dL (0.5-1.5); Est. Creatinine Clearance* 86.33; Estimated Glomerular Filt Rate 84 ml/min; Glucose* 120 mg/dL (60-115); Lipase* 120 U/L (23-300); Total Protein* 7.3 g/dL (6.0-8.3)
[2023-04-30 22:34] VITALS: BP 109/72; PULSE 90; RESP 16; TEMP 36.7; O2SAT 97
[2023-04-30] MEDS: MORPHINE 4 MG/ML INJ IVP (22:54)
[2023-04-30] MEDS: LACTATED RINGERS 1000 ML IV (22:55)
[2023-04-30 22:59] LABS: Basophils Absolute Auto 0.01 K/uL (0.00-0.30); Basophils Percent Auto 0.1 % (0.0-3.0); Hematocrit 41.7 % (33.0-51.0); Hemoglobin* 13.3 gm/dL (12.0-16.0); Immature Granulocytes Abs Auto 0.03 K/uL (0.00-0.30); Immature Granulocytes Pct Auto 0.4 %; Mean Corpuscular HGB Conc 32 gm/dL (32-36); Mean Corpuscular Hemoglobin 28 pg (26-34); Mean Corpuscular Volume 89 fL (80-100); Monocytes Percent Auto 6.4 % (0.0-11.0); Neutrophils Percent Auto 89.1 % (42.0-72.0); Platelet Count* 306 K/uL (140-440); RDW Coefficient of Variation % 12.9 % (11.5-15.5); Red Blood Count 4.69 m/uL (4.00-5.20); White Blood Count* 6.98 K/uL (4.50-11.00)
[2023-04-30 23:03] LABS: Slide Review Reflex No
--- NOTE | 2023-04-30 23:24 | PC.NURSE ---
report given to coleman GRANDE on med/surg. bhaskar going to room 260
--- NOTE | 2023-04-30 23:42 | PM.IMHP1 ---
Hospitalist- H&P: HPI History of Present Illness Date Seen: 05/01/23 Chief complaint: Noravirus-was here earlier Narrative: ADMISSION HISTORY AND PHYSICAL - HOSPITALIST Chief Complaint: Intractable nausea, vomiting. Abdominal pain. HPI: 38 year old female presents with acute onset of vomiting, nausea, diarrhea. Non bloody. Non bilious. Her symptoms started 24 hours prior to admission. She had close contact with her child who had acute gastroenteritis but resolved without intervention. No fever and vital signs normal. She called EMS for 10/10 abdominal pain early on the day of admission. She had a complete workup with labs, CT and abdominal ultrasound. She required morphine for pain. She was eventually sent home. Her mother brought her back later today for continued abdominal pain and nausea. Again she required morphine and droperidol for nausea. Her past medical history is relevant for a history of substance abuse, depression, anxiety, night terrors, obesity and migraine headaches. -was in the [facility] [place] ED in March 2023 for headache and vomiting related to Wegovy initiation ER COURSE: Two ER visits on 04/30/2023 The 1st [place] [facility] with Dr. Wilhelm and the 2nd with Dr. Yuan I have reviewed both notes. -both CBCs are unremarkable. -mild hypokalemia at 3.5 has developed. Mild drop in her bicarb noted. Currently 14. -mild bump in LFTs which have already down trended throughout the day. -no CRP elevation. Normal lipase. -only trace ketone -hCG negative -contrast abdominal pelvic CT unremarkable -unremarkable right upper quadrant ultrasound CODE STATUS: FULL CODE EMERGENCY CONTACT PLAN: Nola Kearney Mother Rel to Pat [phone] Cell Phone I've updated the PFSH, medications and allergies in the Expanse tabs. INVESTIGATIONS: LABS/MICRO/ECG/IMAGING ABOVE REVIEW OF SYSTEMS: 12-point ROS completed with patient and negative unless otherwise stated in HPI or below. PHYSICAL EXAM: CONSTITUTIONAL: tired appearing. NAD. VITAL SIGNS: see record. HEENT: Normocephalic, atraumatic. PERRL, EOMI, conjunctivae pink, no scleral icterus. Ears and nose externally normal. Pharynx normal. NECK: No JVD. No carotid bruit, no thyromegaly, no adenopathy. CHEST: Clear to auscultation bilaterally HEART: S1 and S2 normal. No harsh murmurs. Edema ABDOMEN: soft. no guarding, no peritoneal signs MUSCULOSKELETAL: No gross joint deformity or swelling. NEURO: Cranial nerves intact. Grossly intact. No asymmetric findings. SKIN: No rashes, petechiae, concerning changes PSYCHIATRIC: Euthymic. ADMIT TO MEDSURG: FLOOR CARE DVT: Short-stay, ambulatory GI: PPI Time spent: Today I spent 75 minutes seeing the patient, discussing the patient with ER staff, reviewing Expanse and EPIC notes/diagnostics, discussing the care plan with our care time that includes social work, PT/OT, pharmacy, RT, residential and documenting my impressions and plan in the medical record. [facility] Medical History (Updated 04/30/23 @ 23:45 by Kathie Ridley MD) Smoker ?F17.200 - Nicotine dependence, unspecified, uncomplicated (ICD-10) PTSD (post-traumatic stress disorder) ?F43.10 - Post-traumatic stress disorder, unspecified (ICD-10) Depression ?F32.A - Depression, unspecified (ICD-10) Anxiety ?F41.9 - Anxiety disorder, unspecified (ICD-10) Methamphetamine use disorder, moderate, in sustained remission ?F15.21 - Other stimulant dependence, in remission (ICD-10) Chronic pain ?G89.29 - Other chronic pain (ICD-10) Surgical History History of ?Z98.891 - History of uterine scar from previous surgery (ICD-10) Social History Smoking Status: Current every day smoker Do you use any of these nicotine containing products: None and Vaping Products Second hand tobacco smoke exposure: No How often do you have a drink containing alcohol: never How often do you have six or more drinks on one occasion: Never AUDIT-C Alcohol total score: 0 Non-prescribed substance use: former substance user and marijuana (any form) service: No Meds Home Medications and Allergies Home Medications Medication Instructions Recorded Confirmed Type bupropion HCl 300 mg 24 hr tablet, mg PO 10/07/21 History extended release buspirone 10 mg tablet mg 10/07/21 History cyclobenzaprine 10 mg tablet mg 10/07/21 History omeprazole 10 mg capsule,delayed 10 mg PO DAILY 10/07/21 04/30/23 History release amitriptyline 10 mg tablet 10 mg PO QPM 04/30/23 04/30/23 History clonidine HCl 0.1 mg tablet mg PO 04/30/23 History lamotrigine 25 mg tablet 50 mg PO DAILY 04/30/23 04/30/23 History rizatriptan 10 mg disintegrating mg PO 04/30/23 History tablet topiramate 25 mg tablet 25 mg PO BID 04/30/23 04/30/23 History Allergies Allergy/AdvReac Type Severity Reaction Status Date / Time Penicillins AdvReac Severe Anaphylaxis Verified 04/30/23 13:08 metoclopramide [From Reglan] AdvReac Intermediate Verified 04/30/23 13:08 acetaminophen [From Vicodin] AdvReac Verified 04/30/23 13:08 hydrocodone [From Vicodin] AdvReac Verified 04/30/23 13:08 Exam Const: Vital Signs, click to edit/add: Vital Signs - 24 hr 04/30/23 20:53 04/30/23 22:34 Temperature 97.5 F L 98.0 F Pulse Rate [Pulse Oximeter] 94 90 Respiratory Rate 24 16 Blood Pressure [Ri t Upper Arm] 121/81 109/72 Pulse Oximetry 97 97 Oxygen Delivery Me thod Room Air Room Air Hospitalist - H&P: Result Labs Labs: Short CBC 04/30/23 Range/Units 20:00 WBC 6.98 (4.50-11.00) K/uL Hgb 13.3 (12.0-16.0) gm/dL Hct 41.7 (33.0-51.0) % Plt Count 306 (140-440) K/uL BMP 04/30/23 20:00 Sodium 139 Potassium 3.5 L Chloride 112 Carbon Dioxide 14 L BUN 18 Creatinine 0.9 Glucose 120 H Calcium 8.4 Liver Function 04/30/23 Range/Units 20:00 Total Bilirubin 0.7 (0.1-1.5) mg/dL AST 26 (12-35) U/L ALT 58 H (4-35) U/L Alkaline Phosphatase 125 (40-150) U/L Albumin 4.3 (3.3-5.0) g/dL Assessment and Plan Assessment and plan (1) Acute gastroenteritis: Problem comment: -supportive care -serial exams as needed for abdominal pain Status: Acute (2) Acute hypokalemia: Problem comment: -intravenous rehydration -check labs in the morning Status: Acute (3) PTSD (post-traumatic stress disorder): Status: Acute (4) Chronic pain: Status: Acute (5) Anxiety: Status: Acute (6) Smoker: Status: Acute
[2023-04-30 23:45] VITALS: BP 119/79; PULSE 83; RESP 16; RESP 18; TEMP 36.8; O2SAT 97; BMI 31.0
[2023-05-01] VITALS (8 sets, daily range): BP systolic 99–118; BP diastolic 62–83; PULSE 69–79; RESP 16–20; TEMP 36.4–36.9; O2SAT 96–100
[2023-05-01 00:52] LABS: Magnesium* 1.7 mg/dL (1.5-2.6)
[2023-05-01] MEDS: 5 % DEX/0.45 SOD CHL+KCL20 mEq 1,000 ML 125 ML IV (00:52)
[2023-05-01] MEDS: SODIUM CHLORIDE 0.9 % (FLUSH) 10 ML SYRINGE 5 ML IVF ×3 (00:52→09:08)
[2023-05-01] MEDS: PANTOPRAZOLE SODIUM 40 MG INJ IVP (00:52)
[2023-05-01] MEDS: KETOROLAC 30 MG/ML inj IVP ×2 (01:05→09:08)
[2023-05-01] MEDS: ACETAMINOPHEN 325 MG TABLET 650 MG PO (04:28)
[2023-05-01] MEDS: LORazepam 0.5 MG TABLET PO (05:22)
[2023-05-01] MEDS: LACTATED RINGERS 1000 ML 1,000 ML IV (06:44)
--- NOTE | 2023-05-01 06:56 | PC.NURSE ---
pt arrived from ED around midnight, falling asleep during admission, rating pain 7/10, prn medication administered after admission completed and pt slept until approx 0430. c/o nausea, drank 720cc clear liquids including apple juice, chicken broth and water, no emesis during night. pain rated 7-9/10 while awake.
[2023-05-01 06:57] LABS: Chloride* 111 mmol/L (96-114); Potassium* 3.3 mmol/L (3.6-5.1); Sodium* 137 mmol/L (135-149)
[2023-05-01 06:59] LABS: Creatinine* 0.7 mg/dL (0.5-1.5); Estimated Glomerular Filt Rate 114 ml/min
[2023-05-01 07:00] LABS: Anion Gap 10 mEq/L (7-15); Blood Urea Nitrogen* 11 mg/dL (5-24); Calcium* 7.7 mg/dL (8.4-10.6); Carbon Dioxide* 16 mmol/L (20-32); Glucose* 94 mg/dL (60-115)
[2023-05-01] MEDS: LACTATED RINGERS 1000 ML 1,000 ML 125 ML IV ×2 (10:35→20:16)
[2023-05-01] MEDS: METOCLOPRAMIDE HCL 5 MG/ML INJ 10 MG IVP ×3 (10:36→23:04)
[2023-05-01] MEDS: hydrOXYzine pamoate 25 MG CAPSULE PO ×3 (10:37→20:15)
[2023-05-01] MEDS: ACETAMINOPHEN 325 MG TABLET 1000 MG PO (10:37)
--- NOTE | 2023-05-01 11:10 | P.IMPN_ITS ---
Progress Note: A&P Assessment and plan (1) Acute gastroenteritis: Problem details: -supportive care -serial exams as needed for abdominal pain -continue maintenance IV fluids, IV ppi, clear liquid diet in small amounts as tolerated without nausea vomiting, plan to advance diet as tolerated -scheduled Reglan, p.r.n. Compazine -GI pathogen stool panel ordered -monitor BMP Status: Acute (2) Abdominal pain: Problem details: -CT and ultrasound without acute findings. Denies recent marijuana use -in setting of vomiting and diarrhea -IV ppi, scheduled Reglan, maintenance IVF -discontinued lorazepam. Vistaril p.r.n. -Tylenol p.r.n., Dilaudid p.r.n. - caution with addictive history Status: Acute (3) Acute hypokalemia: Problem details: -in setting of acute vomiting and diarrhea -IV replacement until able to tolerate oral -continue to monitor Status: Acute (4) Chronic pain: Problem details: -reports she uses Tylenol as needed for pain -caution with narcotics. Appears high this morning 05/01. UDS ordered from urine collected in the ED. Lorazepam discontinued Status: Acute (5) PTSD (post-traumatic stress disorder): Problem details: -continue home medications Status: Acute (6) Anxiety: Problem details: -continue home medications Status: Acute Plan Hopeful plan for discharge tomorrow with continued IV hydration, improvement of pain, nausea, vomiting, diarrhea. Time Spent With Patient Total time spent: Total time spent caring for the patient today was 45 minutes. This includes time spent for the visit reviewing the chart, time spent during the visit, time spent after the visit and documentation and planning in coordination of care. Subjective Date Seen: 05/01/23 Interval history: Patient reports feeling somewhat better this morning. Continues with nausea and vomiting however. Last vomited around 4:00 a.m.. Also has ongoing loose stools. Abdominal pain is currently tolerable as she just received Toradol. Denies concern for food poisoning. Exposures include daughter who had 3 days of vomiting which has since resolved. Last marijuana use was 4-6 weeks ago, no previous abdominal pain or emesis with use. Used Wegovy 1 time, 1 month ago, and was very sick with it so has not used it again. Last meth use reported as 5 years ago. Reports using Tylenol at home for chronic pain. Exam Narrative: Exam Narrative: PHYSICAL EXAM General: Sitting up in chair, mildly restless, appears high, difficult to keep eyes open, otherwise conversant HEENT: Normocephalic, atraumatic, sclera white, EOMI, oral mucosa dry Cardiovascular: RRR, S1S2. No pitting edema Pulmonary: CTA bilaterally without rhonchi, rales, expiratory wheezes. No dyspnea Neurological: Answering questions appropriately, cranial nerves intact, no focal findings Extremities: No gross joint deformity or swelling. AROMI. Neurovascularly intact Skin: Warm, dry. Const: Vital Signs, click to edit/add: Vital Signs - 24 hr 04/30/23 20:53 04/30/23 22:34 04/30/23 23:45 Temperature 97.5 F L 98.0 F 98.3 F Pulse Rate [Pulse Oximeter] 94 90 83 Respiratory Rate 24 16 18 Blood Pressure [Le ft Arm] 119/79 Blood Pressure [Ri ght Upper Arm] 121/81 109/72 Pulse Oximetry 97 97 97 Oxygen Delivery Me thod Room Air Room Air Room Air 04/30/23 23:45 05/01/23 00:33 05/01/23 03:00 Temperature Pulse Rate [Pulse Oximeter] Respiratory Rate 16 18 Blood Pressure [Le ft Arm] Blood Pressure [Ri ght Upper Arm] Pulse Oximetry 97 97 Oxygen Delivery Me thod Room Air Room Air 05/01/23 08:10 05/01/23 08:10 Temperature 98.3 F Pulse Rate [Pulse Oximeter] 69 69 Respiratory Rate 16 16 Blood Pressure [Le ft Arm] 104/76 Blood Pressure [Ri ght Upper Arm] Pulse Oximetry 96 Oxygen Delivery Me thod Room Air Labs Labs: Laboratory Results - last 24 hr 04/30/23 05/01/23 05/01/23 20:00 00:33 05:40 WBC 6.98 RBC 4.69 Hgb 13.3 Hct 41.7 MCV 89 MCH 28 MCHC 32 RDW Coeff of Mackenzie 12.9 Plt Count 306 Neut % (Auto) 89.1 H Lymph % (Auto) 4.0 L Eaton % (Auto) 6.4 Eos % (Auto) 0.0 Baso % (Auto) 0.1 Neut # (Auto) 6.20 Lymph # (Auto) 0.30 L Eaton # (Auto) 0.40 Eos # (Auto) 0.00 Baso # (Auto) 0.01 Abs Immat Gran (auto) 0.03 Imm/Tot Granulo (auto) 0.4 Sodium 139 137 Potassium 3.5 L 3.3 L Chloride 112 111 Carbon Dioxide 14 L 16 L Anion Gap 13 10 BUN 18 11 Creatinine 0.9 0.7 Estimated Creat Clear 86.33 111.00 Estimated GFR 84 114 Glucose 120 H 94 Lactate 1.0 Calcium 8.4 7.7 L Magnesium 1.7 Total Bilirubin 0.7 AST 26 ALT 58 H Alkaline Phosphatase 125 Total Protein 7.3 Albumin 4.3 Lipase 120 Lab Acknowledgement Test Added
[2023-05-01 11:30] LABS: Amphetamine Screen Urine Negative (Negative); Barbiturate Screen Urine Negative (Negative); Benzodiazepines Screen Urine Negative (Negative); Cannabinoid Screen Urine POSITIVE (Negative); Cocaine Screen Urine Negative (Negative); Methadone Screen Urine Negative (Negative); Methamphetamines Screen Urine Negative (Negative); Opiate Screen Urine POSITIVE (Negative); Oxycodone Screen Urine Negative (Negative); Phencyclidine Screen Urine Negative (Negative); Tricyclic Antidepressant Urine POSITIVE (Negative)
[2023-05-01] MEDS: cloNIDine HCL 0.1 MG TABLET PO (11:39)
[2023-05-01] MEDS: POTASSIUM CHLORIDE 10 MEQ/100 ML PIGGYBACK 100 MEQ IVPB ×3 (11:39→15:29)
[2023-05-01] MEDS: ROPINIROLE HCL 1 MG TABLET PO ×2 (11:40→20:14)
[2023-05-01] MEDS: BUSPIRONE 10 MG TABLET 30 MG PO ×2 (11:42→20:15)
[2023-05-01] MEDS: ACETAMINOPHEN 500 MG TABLET 1000 MG PO (16:14)
[2023-05-01] MEDS: AMITRIPTYLINE HCL 10 MG TABLET PO (18:08)
[2023-05-01] MEDS: KETOROLAC 15 MG/ML inj IVP (18:08)
--- NOTE | 2023-05-01 18:21 | PC.NURSE ---
End of Shift: Patient pleasant and cooperative. Patient vitally stable, lungs clear, BS WNL, IV running LR at 125. Patient rates abdominal pain at most 8/10, tylenol and toradol given x2, hydroxyzine given once. Patient independent in room. Patient urinating and has had multiple loose stools. Patient has had plenty of clear liquids this shift. Patient has ambulated the halls.
[2023-05-01] MEDS: cloNIDine HCL 0.1 MG TABLET 0.05 MG PO (20:14)
[2023-05-01] MEDS: TOPIRAMATE 50 MG TABLET 100 MG PO (20:15)
[2023-05-01] MEDS: HYDROmorphone 0.5 mg/0.5 ml inj IVP (20:15)
[2023-05-02] MEDS: HYDROmorphone 0.5 mg/0.5 ml inj IVP (02:20)
[2023-05-02] MEDS: KETOROLAC 15 MG/ML inj IVP (02:21)
[2023-05-02 02:57] VITALS: BP 126/89; PULSE 72; RESP 16; O2SAT 98
[2023-05-02] MEDS: METOCLOPRAMIDE HCL 5 MG/ML INJ 10 MG IVP (05:10)
[2023-05-02] MEDS: ACETAMINOPHEN 500 MG TABLET 1000 MG PO (05:17)
[2023-05-02] MEDS: LACTATED RINGERS 1000 ML 1,000 ML 125 ML IV (05:17)
[2023-05-02] MEDS: LOPERAMIDE HCL 2 MG CAPSULE PO (06:52)
--- NOTE | 2023-05-02 06:58 | PC.NURSE ---
End of shift [phone] ? Pt alert, oriented x 4, cooperative to care. Pt reported experiencing loose stools during shift, continent of bowel and bladder. Observed to walk in halls independently. Pt reported pain in abdomen rated as 6.5-8/10 during shift that was relieved by walking in halls and PRN medication. Interventions given per [facility] instruction with pt behavior indicating relief. Pt tolerating RA, advanced to regular diet as tolerated. Pt ordered Taco Cespedes to hospital and reported increased bowel discomfort to RN. RN provided education regarding a mild diet and reintroducing regular diet items, pt verbalized understanding of education. Pt reported an increase in loose stools at end of shift, requested pharmaceutical intervention and reported being sore in her hernandez area from continuously going to the bathroom. RN used standing order in [facility] for pt request. Pt is tolerating RA and denies nausea, SOB, dizziness. ?
[2023-05-02 07:24] LABS: Chloride* 118 mmol/L (96-114)
[2023-05-02 07:25] LABS: Potassium* 3.6 mmol/L (3.6-5.1); Sodium* 141 mmol/L (135-149)
[2023-05-02 07:27] LABS: Creatinine* 0.7 mg/dL (0.5-1.5); Estimated Glomerular Filt Rate 114 ml/min
[2023-05-02 07:28] LABS: Anion Gap 10 mEq/L (7-15); Basophils Absolute Auto 0.01 K/uL (0.00-0.30); Basophils Percent Auto 0.2 % (0.0-3.0); Blood Urea Nitrogen* 8 mg/dL (5-24); Calcium* 7.9 mg/dL (8.4-10.6); Carbon Dioxide* 13 mmol/L (20-32); Eosinophils Absolute Auto 0.16 K/uL (0.00-0.50); Eosinophils Percent Auto 3.2 % (0.0-7.0); Glucose* 83 mg/dL (60-115); Hemoglobin* 10.9 gm/dL (12.0-16.0); Immature Granulocytes Abs Auto 0.03 K/uL (0.00-0.30); Immature Granulocytes Pct Auto 0.6 %; Lymphocytes Percent Auto 19.3 % (20-44); Mean Corpuscular HGB Conc 32 gm/dL (32-36); Mean Corpuscular Hemoglobin 28 pg (26-34); Mean Corpuscular Volume 89 fL (80-100); Monocytes Percent Auto 7.6 % (0.0-11.0); Neutrophils Absolute Auto 3.47 K/uL (1.7-7.0); Neutrophils Percent Auto 69.1 % (42.0-72.0); Platelet Count* 141 K/uL (140-440); Red Blood Count 3.84 m/uL (4.00-5.20); White Blood Count* 5.02 K/uL (4.50-11.00)
[2023-05-02 07:54] LABS: Slide Review Reflex Yes
[2023-05-02 08:06] LABS: Slide Review Acceptable Review (Acceptable)
[2023-05-02] MEDS: hydrOXYzine pamoate 25 MG CAPSULE PO (08:11)
[2023-05-02 08:13] VITALS: BP 146/90; PULSE 84; RESP 16; TEMP 36.4; O2SAT 98
[2023-05-02] MEDS: PANTOPRAZOLE SODIUM 40 MG INJ IVP (08:46)
[2023-05-02] MEDS: BUSPIRONE 10 MG TABLET 30 MG PO (08:50)
[2023-05-02] MEDS: cloNIDine HCL 0.1 MG TABLET PO (08:50)
[2023-05-02] MEDS: buPROPion XL 150 MG TABLET 450 MG PO (08:51)
[2023-05-02] MEDS: ROPINIROLE HCL 1 MG TABLET PO (08:51)
[2023-05-02] MEDS: SODIUM CHLORIDE 0.9 % (FLUSH) 10 ML SYRINGE 5 ML IVF (08:52)
--- NOTE | 2023-05-02 09:14 | PM.DS1 ---
DS: Providers Provider Date Seen: 05/02/23 Date of admission: 04/30/23 23:27 Primary care physician: Espinoza Montanez MD Admitting Clinician: Kathie Ridley MD Attending Physician on discharge: Morelia Lopez [facility], PA-C [facility] Hospitalist Date of Discharge: 05/02/23 DS: Diagnosis Discharge Diagnosis (1) Acute gastroenteritis: Status: Acute Problem details: Nausea and vomiting resolved prior to discharge. Patient continued to have occasional loose stools. Tolerating orals so ordered herself Taco Cespedes which then caused increased abdominal cramping and diarrhea. Discussed bland and brat diet on discharge. GI stool pathogen pending at time of discharge. (2) Abdominal pain: Status: Acute Problem details: CT and ultrasound without acute findings. Denies recent marijuana use or current use of Wegovy. Resolved with belly rest, clears, resumed after eating Taco Cespedes. (3) Acute hypokalemia: Status: Acute Problem details: Resolved following replacement (4) Chronic pain: Status: Acute Problem details: -reports she uses Tylenol as needed for pain (5) PTSD (post-traumatic stress disorder): Status: Acute Problem details: -continued home medications (6) Anxiety: Status: Acute Problem details: -continued home medications DS: Summary Hospital Course Hospital Course: [age] year old female past medical history significant for anxiety, PTSD, methamphetamine abuse (5 years sober) was admitted to the medical floor for intractable nausea, vomiting, diarrhea with abdominal pain. Nausea vomiting resolved, pain and diarrhea improved with clear diet, unfortunately resumed following ingestion of fast food. Discussion regarding appropriate food choices including bland, brat diet, prior to discharge. Course of care and details as noted above. Status at Discharge Overall status at discharge: patient is back to baseline Time Spent with Patient Time attestation: Total time spent providing and/or coordinating discharge services: Time spent: Greater than 30 minutes Exam Narrative: Exam Narrative: PHYSICAL EXAM General: Pleasant, conversant, NAD Cardiovascular: RRR Pulmonary: No dyspnea Neurological: Alert, answering questions appropriately Skin: Warm, dry. Const: Vital Signs, click to edit/add: Vital Signs - 24 hr 04/30/23 20:53 04/30/23 22:34 04/30/23 23:45 Temperature 97.5 F L 98.0 F 98.3 F Pulse Rate [Pulse Oximeter] 94 90 83 Respiratory Rate 24 16 18 Blood Pressure [Le ft Arm] 119/79 Blood Pressure [Ri ght Upper Arm] 121/81 109/72 Pulse Oximetry 97 97 97 Oxygen Delivery Me thod Room Air Room Air Room Air 04/30/23 23:45 05/01/23 00:33 05/01/23 03:00 Temperature Pulse Rate [Pulse Oximeter] Respiratory Rate 16 18 Blood Pressure [Le ft Arm] Blood Pressure [Ri ght Upper Arm] Pulse Oximetry 97 97 Oxygen Delivery Me thod Room Air Room Air 05/01/23 08:10 05/01/23 08:10 05/01/23 11:21 Temperature 98.3 F 98.5 F Pulse Rate [Pulse Oximeter] 69 69 79 Respiratory Rate 16 16 20 Blood Pressure [Le ft Arm] 104/76 118/83 Blood Pressure [Ri ght Upper Arm] Pulse Oximetry 96 97 Oxygen Delivery Me thod Room Air Room Air DS: Data Data Completed and Pending Pending studies at discharge: GI stool pathogen Labs on day of discharge: Labs from last 24 hours 05/01/23 05/01/23 05/01/23 11:05 09:59 05:40 WBC RBC Hgb Hct MCV MCH MCHC RDW Coeff of Mackenzie Plt Count Neut % (Auto) Lymph % (Auto) [place] % (Auto) Eos % (Auto) Baso % (Auto) Neut # (Auto) Lymph # (Auto) [place] # (Auto) Eos # (Auto) Baso # (Auto) Abs Immat Gran (auto) Imm/Tot Granulo (auto) Sodium 137 Potassium 3.3 L Chloride 111 Carbon Dioxide 16 L Anion Gap 10 BUN 11 Creatinine 0.7 Estimated Creat Clear 111.00 Estimated GFR 114 Glucose 94 Lactate Calcium 7.7 L Magnesium Total Bilirubin AST ALT Alkaline Phosphatase Total Protein Albumin Lipase Stl C. cayetanensis PCR Pending Stool Rotavirus A PCR Pending Stool Adenovirus (PCR) Pending Stool Astrovirus (PCR) Pending Stool Campylobacter PCR Pending Stool Cryptosporidium PCR Pending Stl E.coli Shiga Tox PCR Pending Stool E coli O157 PCR Pending Stl Enterotoxigenic E PCR Pending Stool EPEC (PCR) Pending Stool EAEC (PCR) Pending Stl E. histolytica PCR Pending Stool Giardia Lamblia PCR Pending Stl P. shigelloides PCR Pending Stool Salmonella PCR Pending Stool Sapovirus (PCR) Pending Stl Shigella/EIEC PCR Pending St Y.enterocolitica PCR Pending Stool Vibrio (PCR) Pending Stl Vibrio cholerae PCR Pending Stl Norovirus GI/GII PCR Pending Urine Opiates Screen Ur Oxycodone Screen Urine Methadone Screen Ur Barbiturates Screen U Tricyclic Antidepress Ur Phencyclidine Scrn Ur Amphetamines Screen U Methamphetamines Scrn U Benzodiazepines Scrn Urine Cocaine Screen U Marijuana (THC) Screen Ur Drug Screen Comment Lab Acknowledgement Test Added 05/01/23 04/30/23 00:33 20:00 WBC 6.98 RBC 4.69 Hgb 13.3 Hct 41.7 MCV 89 MCH 28 MCHC 32 RDW Coeff of Mackenzie 12.9 Plt Count 306 Neut % (Auto) 89.1 H Lymph % (Auto) 4.0 L [place] % (Auto) 6.4 Eos % (Auto) 0.0 Baso % (Auto) 0.1 Neut # (Auto) 6.20 Lymph # (Auto) 0.30 L [place] # (Auto) 0.40 Eos # (Auto) 0.00 Baso # (Auto) 0.01 Abs Immat Gran (auto) 0.03 Imm/Tot Granulo (auto) 0.4 Sodium 139 Potassium 3.5 L Chloride 112 Carbon Dioxide 14 L Anion Gap 13 BUN 18 Creatinine 0.9 Estimated Creat Clear 86.33 Estimated GFR 84 Glucose 120 H Lactate 1.0 Calcium 8.4 Magnesium 1.7 Total Bilirubin 0.7 AST 26 ALT 58 H Alkaline Phosphatase 125 Total Protein 7.3 Albumin 4.3 Lipase 120 Stl C. cayetanensis PCR Stool Rotavirus A PCR Stool Adenovirus (PCR) Stool Astrovirus (PCR) Stool Campylobacter PCR Stool Cryptosporidium PCR Stl E.coli Shiga Tox PCR Stool E coli O157 PCR Stl Enterotoxigenic E PCR Stool EPEC (PCR) Stool EAEC (PCR) Stl E. histolytica PCR Stool Giardia Lamblia PCR Stl P. shigelloides PCR Stool Salmonella PCR Stool Sapovirus (PCR) Stl Shigella/EIEC PCR St Y.enterocolitica PCR Stool Vibrio (PCR) Stl Vibrio cholerae PCR Stl Norovirus GI/GII PCR Urine Opiates Screen POSITIVE A Ur Oxycodone Screen Negative Urine Methadone Screen Negative Ur Barbiturates Screen Negative U Tricyclic Antidepress POSITIVE A Ur Phencyclidine Scrn Negative Ur Amphetamines Screen Negative U Methamphetamines Scrn Negative U Benzodiazepines Scrn Negative Urine Cocaine Screen Negative U Marijuana (THC) Screen POSITIVE A Ur Drug Screen Comment See Note Lab Acknowledgement Test Added Discharge Plan Discharge Disposition: Home, Self-Care Date of Admission: 04/30/23 23:27 Attending Provider on Discharge: Morelia Lopez Primary Care Provider: Espinoza Montanez Condition: Guarded Anticipated Discharge Date/Time: 05/02/23 09:08 Discharge Medications: New metoclopramide HCl [Reglan] 10 mg tablet 10 mg PO Q6H PRN (Reason: nausea and vomiting) Qty: 10 0RF Continued bupropion HCl 300 mg tablet extended release 24 hr 300 mg PO DAILY Patient Comments: TAKE 1 TABLET BY MOUTH EVERY DAY omeprazole 10 mg capsule,delayed release(DR/EC) 10 mg PO DAILY cyclobenzaprine 10 mg tablet 10 mg PO Q12H PRN clonidine HCl 0.1 mg tablet 0.05 - 0.1 mg PO BID Rx Instructions: TAKE 0.1 MG DAILY AND 0.05 MG HS topiramate 25 mg tablet 50 mg PO HS amitriptyline 10 mg tablet 10 mg PO QPM rizatriptan 10 mg tablet,disintegrating 10 mg PO Q2H PRN bupropion HCl 150 mg tablet extended release 24 hr 150 mg PO DAILY ropinirole 1 mg tablet 1 mg PO BID buspirone 30 mg tablet 30 mg PO BID topiramate 100 mg tablet 100 mg PO HS zveyfsieyh-gzahifvppydhe-pwaz 50-325-40 mg tablet 1 tab PO Q4H PRN (Reason: headache) multivitamin Tablet 1 tab PO DAILY Discontinued ondansetron 4 mg tablet,disintegrating 4 mg PO Q8-12H PRN (Reason: nausea and vomiting) Qty: 10 0RF Discharge Orders: Discharge Order (Routine); Ordered 05/02/23 Ordered By: Morelia Lopez Patient Education: Dehydration (GEN), Gastroenteritis (GEN), Acute Nausea and Vomiting (GEN) Additional Instructions: Follow a BLAND diet, BRAT diet until you are feeling better and diarrhea has subsided. Eat in small amounts. You may take Tylenol or Ibuprofen as needed. Results of your stool test are not yet available. You will receive a call if any of this is abnormal. Follow up with your PCP as needed. Activity Level: No Restrictions Diet Detail: BLAND/BRAT Follow Up Appointments: Espinoza Montanez MD [Primary Care Provider] - Forms: [employer] Info Instructions
--- NOTE | 2023-05-02 09:57 | PC.NURSE ---
Discharge: Patient pleasant and cooperative. Patient vitally stable, lungs clear, BS WNL, IV removed, catheter intact. Patient rates abdominal pain 8/10, hydroxyzine given. Patient independent in room. Patient tolerating regular diet. Patient urinating and had 1 loose BM. Patient signed belongings sheet and discharge form, patient had no further questions regarding discharge. Patient left the floor by foot with family to home at 950.
[2023-05-04 02:43] LABS: Adenovirus PCR Not Detected; Astrovirus PCR Not Detected; Campylobacter PCR Not Detected; Cryptosporidium PCR Not Detected; Cyclospora cayetanensis PCR Not Detected; Entamoeba histolytica PCR Not Detected; Enteroaggregative E coli PCR Not Detected; Enteropathogenic E coli PCR Not Detected; Enterotoxigenic E coli PCR Not Detected; Giardia lamblia PCR Not Detected; Norovirus Gi/GII PCR Detected; Plesiomonas shig PCR Not Detected; Rotavirus A PCR Not Detected; Salmonella PCR Not Detected; Sapovirus PCR Not Detected; Shiga toxin E coli PCR Not Detected; Shigella/Enteroinvasive E coli Not Detected; Vibrio PCR Not Detected; Vibrio cholerae PCR Not Detected; Yersinia enterocolitica PCR Not Detected
== END 2023-05-02 09:50 | disposition home or self-care (01) ==
LOC: ED 23:27 → MEDSURG 23:28
PROVIDERS: Physician Assistant; Admitting Provider Family Medicine; Emergency Provider Emergency Medicine; PCP Family Medicine; Visit Provider Family Medicine
DX: K52.9 Noninfective gastroenteritis and colitis, unspecified (principal); E87.6 Hypokalemia; R74.01 Elevation of levels of liver transaminase levels; E86.0 Dehydration; R10.11 Right upper quadrant pain; M54.9 Dorsalgia, unspecified; G89.29 Other chronic pain; F43.10 Post-traumatic stress disorder, unspecified; F41.9 Anxiety disorder, unspecified; F17.200 Nicotine dependence, unspecified, uncomplicated; K21.9 Gastro-esophageal reflux disease without esophagitis; R53.83 Other fatigue; R11.0 Nausea; R11.10 Vomiting, unspecified; Z86.16 Personal history of COVID-19; F15.21 Other stimulant dependence, in remission; Z98.891 History of uterine scar from previous surgery
CPT/HCPCS: 36415; 74177; 76705; 80048; 80053; 80306; 81001; 81025; 83605; 83690; 83735; 85025; 86140; 87505; 93005; 96361; 96365; 96366; 96367; 96375; 96376; 99284; 99285; A9270; C9113; G0378; J1170; J1790; J1885; J2060; J2270; J2765; J3480; J7030; J7120; Q9967